=== PATIENT | female | born 1955 | race Caucasian/White ===

== ENCOUNTER → 2018-02-25 13:52 | Outpatient (CLI) | payer MEDICARE, OTHER, SELFPAY ==
[2018-02-25 15:33] LABS: BUN Creatinine Ratio 28.6 (6-22); Blood Urea Nitrogen 20 mg/dL (7-17); Calcium 9.8 mg/dL (8.4-10.2); Carbon Dioxide 28 mmol/L (22-32); Chloride 98 mmol/L (98-107); Estimated Glomerular Filt Rate > 60.0 mL/min (>60); Glucose 103 mg/dL (80-110); HEMOLYSIS < 15 (0-50); Potassium 4.8 mmol/L (3.4-5.1); Sodium 135 mmol/L (137-145)
== END ==
PROVIDERS: Visit Provider Internal Medicine Cardiovascular Disease
DX: E87.1 Hypo-osmolality and hyponatremia (principal)
CPT/HCPCS: 36415; 80048

== ENCOUNTER 2018-11-06 10:28 | Day surgery (SDC) | payer MEDICARE, OTHER, SELFPAY ==
--- NOTE | 2018-11-06 | PATH_ITS ---
[facility] Accession Number: [id number] . 01 Material submitted: . COLON POLYP AT 15CM . 02 Diagnosis: Biopsy, Colon Polyp at 15 cm: Hyperplastic polyop involving two biopsy fragments. [facility]/11/09/2018 . 02 Electronically signed: . Sohail Jean MD, Pathologist NPI- [id number] . 01 Gross description: . COLON POLYP AT 15CM: Received in formalin are 3 fragment(s) of marie, soft tissue measuring 0.1 x 0.1 x 0.1 cm to 0.3 x 0.2 x 0.2 cm which is entirely submitted and submitted entirely in 1 cassette(s) /DMC /DMC . 02 Pathologist provided ICD-10: K62.1 . 02 CPT . 822518 Performed at: 01 [facility] [address] [id number] MD Guanako Up MD Phone: [phone] Performed at: 02 [facility] [address] [place], [place] [id number] MD Maine Matamoros MD Phone: [phone]
[2018-11-06 10:52] VITALS: BP 144/65; PULSE 50; RESP 17; TEMP 36.3; O2SAT 95; BMI 25.1
[2018-11-06] MEDS: SODIUM CHLORIDE 0.9% 1,000 ML 200 ML IV (11:07)
--- NOTE | 2018-11-06 11:21 | PM.HP.1 ---
History of Present Illness Date Patient Seen: 11/06/18 Time Patient Seen: 11:21 Chief complaint: [id number] SCREENING COLONOSCOPY Narrative: Patient is woman here for screening colonoscopy. Last exam was 5 years ago. He she had polyps removed at that time. No family history colon cancer. Patient History Medical History Hx of ectopic (Resolved) Surgical History H/O exploratory laparotomy (Resolved) Social History household members: spouse Family & Social History Social History: household members spouse Meds Home Medications Medication Instructions Recorded Confirmed Type estradiol 0.5 mg QDAY #0 11/20/12 History [ACTIVE FOLATE] 200 mcg PO DAILY #0 12/14/12 11/06/18 History atenolol 100 mg PO DAILY 11/06/18 11/06/18 History levothyroxine [Synthroid] 150 mcg PO DAILY 11/06/18 11/06/18 History losartan 100 mg PO DAILY 11/06/18 11/06/18 History Allergies Allergy/AdvReac Type Severity Reaction Status Date / Time nadolol Allergy Severe Difficulty Verified 11/06/18 10:50 Breathing Review of Systems Review of Systems All systems reviewed & are unremarkable except as noted in HPI and below Exam Vital Signs (past 8 hours): - 11/06/18 10:52 Temperature 97.3 F L Pulse Rate 50 L Respiratory Rate 17 Blood Pressure 144/65 H Pulse Oximetry 95 Oxygen Delivery Method Room Air Narrative Exam Narrative: No apparent distress. Lungs are clear to auscultation. Heart regular rate and rhythm without murmur gallop. Abdomen is soft scaphoid nontender without mass. Alert oriented x3. Assessment & Plan Assessment & Plan narrative: Patient for screening colonoscopy due to history of polyps. I have discussed the procedure and the rationale with the patient including risks of bleeding, perforation which would necessitate a major operation, failure to find remove all lesions and the potential to tattoo. They appeared to understand and wished to proceed.
--- NOTE | 2018-11-06 11:24 | PM.PREOP ---
Pre-operative Note Interval Note History & Physical reviewed/Exam performed by Physician: Yes Changes to H&P: No ASA Class (for procedural sedation): II
[2018-11-06] MEDS: fentaNYL 250 MCG/5 ML INJ IV (11:56)
[2018-11-06] MEDS: MIDAZOLAM 5 MG/5 ML VIAL IV (11:57)
--- NOTE | 2018-11-06 12:24 | PM.OP.ENDO ---
Operative Date/Time/Diagnoses Date of procedure: 11/06/18 Time of procedure: 12:24 Post-op diagnosis: same (Small rectal lesions possibly polypoid) Procedure & Clinicians Study performed: Colonoscopy with cold biopsy Same procedure as scheduled: Yes Indications: Screening Surgeon: Kike Rosales Procedure Notes SCOAP/Timeout: Performed Procedure in detail: The patient was placed in the left lateral decubitus position and underwent IV sedation directed by the surgeon consisting of fentanyl and Versed. Digital exam was unremarkable. The scope was inserted and advanced through the rectum into the sigmoid, descending, transverse, and ascending colon. No lesions were seen. The cecum was reached identified by the ileocecal valve and the appendiceal opening. The scope was gradually brought out. No Polyps were found until I reached the rectum. At 15 cm there were 2 very tiny irregular lesions that may not be polyps at all but I removed them and submitted them. The scope ultimately was retroflexed in the rectum. The appearance was notable for some minor scarring on old hemorrhoidal disease. The scope was removed and the patient tolerated the procedure well Scope withdrawal time: 9.5 min Sedation minutes: 23 Findings: polyp (Possible rectal polyps) Specimen(s): other (Biopsies in the rectum) Complications: none Recommendations: Colonscopy in 5 years (Due to personal history of polyps) Follow up: as needed Disposition: PACU
[2018-11-06 12:26] VITALS: BP 103/56; PULSE 60; RESP 13; TEMP 36.4; O2SAT 97
[2018-11-06 12:31] VITALS: BP 104/51; PULSE 55; RESP 15; O2SAT 97
--- NOTE | 2018-11-06 12:34 | SUR.PHASEI ---
HOB elevated, awake, asking appropriate questions, Tolerated juice well
[2018-11-06 12:36] VITALS: BP 101/45; PULSE 50; RESP 14; O2SAT 98
--- NOTE | 2018-11-06 12:40 | SUR.PHASEI ---
states that her heart rate normally runs in the 50's, is taking a beta moy - took this am.
[2018-11-06 13:00] VITALS: BP 94/50; PULSE 48; RESP 16; TEMP 36.7; O2SAT 99
== END 2018-11-06 13:06 | disposition home or self-care (01) ==
PROVIDERS: Visit Provider Specialist
PROC: 0DJD8ZZ Inspection of Lower Intestinal Tract, Via Natural or Artificial Opening Endoscopic (ICD-10-PCS; CPT 45378; principal; 2018-11-06 11:45)
DX: Z86.010 Personal history of colon polyps (principal); K62.1 Rectal polyp
CPT/HCPCS: 45380; 88305; 99152; 99153; J2250; J3010

== ENCOUNTER → 2018-11-21 10:20 | Outpatient (CLI) | payer MEDICARE, OTHER, SELFPAY ==
--- NOTE | 2018-11-21 | DI.MRI.S_ITS ---
PROCEDURE: MR CERVICAL SPINE WO CON INDICATIONS: neck pain, right hand numbness TECHNIQUE: Noncontrast sagittal T1 spin echo and T2 fast spin echo, sagittal STIR, foraminal oblique sagittal T2 fast spin echo, and axial gradient echo or T2 fast spin echo through the cervical spine. COMPARISON: None. FINDINGS: Image quality: Excellent. Alignment and Curvature: There is straightening of normal cervical curvature with trace retrolisthesis of C5 on C6. Bone Marrow: Marrow demonstrates normal overall signal. Spinal Cord: Visualized spinal cord has normal size and signal. No cerebellar tonsillar herniation. Paraspinous Soft Tissues: No paravertebral masses. Prevertebral soft tissues are normal in thickness. C2-C3: Minimal disc bulge without spinal stenosis or foraminal narrowing. C3-C4: Mild disc bulge without spinal stenosis or frontal narrowing. Minimal focal vertebral hypertrophy. C4-C5: Mild disc bulge without spinal stenosis. Mild right foraminal narrowing with uncovertebral hypertrophy. C5-C6: Mild disc bulge with minimal canal narrowing. Minimal to mild right foraminal narrowing with uncovertebral hypertrophy. C6-C7: Mild disc bulge without spinal stenosis. Minimal to mild right and minimal left foraminal narrowing with uncovertebral hypertrophy. C7-T1: No disc bulge, spinal stenosis or foraminal narrowing. IMPRESSION: 1. Mild cervical straightening. 2. Minimal to mild foraminal narrowing predominantly right-sided from C4-5 through C6-7. Dictated by: Jannie Alcantar M.D. on 11/23/2018 at 9:48 Approved by: Jannie Alcantar M.D. on 11/23/2018 at 9:57
--- NOTE | 2018-11-21 | DI.MG.S_ITS ---
BILATERAL DIGITAL SCREENING MAMMOGRAM 3D/2D WITH CAD: 11/21/2018 CLINICAL: Routine screening. Family history of breast cancer. Comparison is made to exams dated: 12/11/2016 mammogram, 11/22/2015 mammogram, and 11/14/2014 mammogram - [facility]. There are scattered fibroglandular elements in both breasts. Current study was also evaluated with a Computer Aided Detection (CAD) system. There are a grouped heterogeneous calcifications in the right breast at 11 o'clock middle depth. There is a possible associated developing aysmmetry best seen on the mediolateral oblique view. No other significant masses, calcifications, or other findings are seen in either breast. IMPRESSION: INCOMPLETE: NEEDS ADDITIONAL IMAGING EVALUATION The grouped heterogeneous calcifications with possible associated developing asymmetry in the right breast are indeterminate. Mediolateral, spot magnification, and spot compression views as well as a possible ultrasound are recommended. This exam was interpreted at Station ID: [id number]. NOTE: For mammograms, a report in lay terms will be sent to the patient. Approximately 15% of breast malignancies will not be visualized mammographically. In the management of a palpable breast mass, a negative mammogram must not discourage biopsy of a clinically suspicious lesion. Electronically Signed By: Brett Salmeron M.D. aty/:11/23/2018 08:07:59 letter sent: Additional Imaging Needed ACR BI-RADS Category 0: Incomplete [id number]
== END ==
PROVIDERS: Family Provider Physical Medicine & Rehabilitation Pain Medicine
DX: M54.2 Cervicalgia (principal); M48.02 Spinal stenosis, cervical region; R20.0 Anesthesia of skin; Z12.31 Encounter for screening mammogram for malignant neoplasm of breast; Z80.3 Family history of malignant neoplasm of breast
CPT/HCPCS: 72141; 77063; 77067

== ENCOUNTER → 2018-12-09 14:06 | Outpatient (CLI) | payer MEDICARE, OTHER, SELFPAY ==
--- NOTE | 2018-12-09 | DI.MG.S_ITS ---
UNILATERAL RIGHT DIGITAL DIAGNOSTIC MAMMOGRAM 3D/2D WITH ADDITIONAL VIEWS: 12/09/2018 CLINICAL: Additional evaluation requested from prior study. Comparison is made to exams dated: 11/21/2018 mammogram - [facility], 12/11/2016 mammogram, and 11/22/2015 mammogram - [facility]. There are scattered fibroglandular elements in right breast. The grouped punctate calcifications in the right breast at 11 o'clock middle depth persist on additional views. The possible asymmetry in the right breast middle depth superior region seen on the mediolateral oblique view only is not seen in additional views. No other significant masses or calcifications are seen in the breast. IMPRESSION: PROBABLY BENIGN The grouped punctate calcifications in the right breast at 11 o'clock middle depth are probably benign. A follow-up right mammogram in 6 months is recommended to demonstrate stability. This exam was interpreted at Station ID: [id number]. NOTE: For mammograms, a report in lay terms will be sent to the patient. Approximately 15% of breast malignancies will not be visualized mammographically. In the management of a palpable breast mass, a negative mammogram must not discourage biopsy of a clinically suspicious lesion. Electronically Signed By: Tiarra kc/:12/09/2018 15:00:16 letter sent: Followup Recommended ACR BI-RADS Category 3: Probably benign [id number]
== END ==
PROVIDERS: Family Provider Physical Medicine & Rehabilitation Pain Medicine
DX: R92.1 Mammographic calcification found on diagnostic imaging of breast (principal)
CPT/HCPCS: 77065; G0279

== ENCOUNTER 2019-03-09 13:19 | Observation (INO) | payer MEDICARE, OTHER, SELFPAY ==
[2019-03-09] VITALS (15 sets, daily range): BP systolic 112–225; BP diastolic 65–98; PULSE 53–80; RESP 13–19; TEMP 36.2–37; O2SAT 93–100; BMI 25.4
--- NOTE | 2019-03-09 | DI.ECHO.S_ITS ---
[facility] +---------+ : : [address] : : [place], [place] : : : : [id number] : : : : Phone: [phone]+ Echocardiogram Report + + :Name: DMITRIKURTHugo Arias Study Date: 03/10/2019 Height: 64 in : :[facility] Exam Location: [place] Weight: 148 lb : : Gender: Female BSA: 1.7 m2 : :: 1955 Age: 64 yrs BP: 163/73 mmHg: :Reason For Study: TIA/ Hypertensive emergency : :Ordering Physician: Howard : :Hospitalist Performed By: Jessika Page : :Referring: BRITNI GAMINO : + + Interpretation Summary 1) Normal left ventricular thickness, size, wall motion, and systolic function (EF 60-65%). 2) Normal right ventricular size and function. 3) Both atria are moderately dilated. 4) No significant valvular abnormalities. 5) Injection of contrast documented no interatrial shunt. 6) Hypertension present during the study (BP 163/73mmHg). 7) No prior Echo available for comparison. Procedure: A two-dimensional transthoracic echocardiogram with color flow and Doppler was performed. The study quality was technically adequate. There is no prior echocardiogram noted for this patient. A saline contrast injection was performed to assess for cardiac shunting. The patient was in sinus bradycardia with heart rates between 48-51 bpm during the exam. Left Ventricle: The left ventricle is normal in size, wall thickness, and systolic function without any focal wall motion abnormalities. The ejection fraction is estimated to be 60-65%. Right Ventricle: The right ventricle is normal in size and function. Atria: Both atria are moderately dilated. There is no Doppler evidence for an interatrial shunt. Injection of contrast documented no interatrial shunt. Mitral Valve: The mitral valve is normal in structure and function. There is trace mitral regurgitation. Aortic Valve: The aortic valve is grossly normal. The aortic valve opens well. There is no aortic valve stenosis. No aortic regurgitation is present. Tricuspid Valve: The tricuspid valve is normal in structure and function. There is trace tricuspid regurgitation. The right ventricular systolic pressure is estimated to be at least 23 mmHg based on an estimated right atrial pressure of 3 mm Hg. Pulmonic Valve: The pulmonic valve is not well visualized. Great Vessels: The aortic root is normal size. The ascending aorta is at the upper limits of normal in size. The pulmonary is not well visualized. The IVC is dilated (diameter is greater than 2.1 cm) yet it collapses greater than 50% with a sniff. This suggests a right atrial pressure of 8 mm Hg. Pericardium/ Pleura There is no pericardial effusion. There is no pleural effusion. MMode/2D Measurements & Calculations LVIDd: 5.1 cm Ao root diam: 2.6 cm LVIDs: 3.1 cm asc Aorta Diam: 3.4 cm FS: 40.1 % EPSS: 0.45 cm IVSd: 0.48 cm LVPWd: 0.94 cm LV willard. diameter/BSA (cm/m^2): 3.0 LV sys. diameter/BSA (cm/m^2): 1.8 LA A2 area: 30.4 cm2 RA long axis: 5.8 cm LA A4 area: 25.7 cm2 RA area: 24.9 cm2 LA length (vol): 6.5 cm RA vol: 90.7 ml LA vol: 102.0 ml RA : 52.7 ml/m2 LA vol index: 59.3 ml/m2 IVC diam: 2.2 cm RVD1 (basal): 4.0 cm RVD2 (mid): 3.7 cm TAPSE: 2.7 cm Doppler Measurements & Calculations Ao V2 max: 172.0 cm/sec LVOT Max Hakan: 84.7 cm/sec Ao V2 mean: 124.3 cm/sec LV V1 max P.9 mmHg Ao max P.8 mmHg LV V1 VTI: 24.2 cm Ao mean P.7 mmHg sev ratio: 0.53 Ao V2 VTI: 46.0 cm MV E max hakan: 97.8 cm/sec TR max hakan: 224.8 cm/sec MV A max hakan: 74.0 cm/sec TR max P.3 mmHg MV E/A: 1.3 PA V2 max: 74.0 cm/sec Med Peak E' Hakan: 6.9 cm/sec PA V2 mean: 57.0 cm/sec E/E' med: 14.1 PA mean P.4 mmHg Lat Peak E' Hakan: 11.2 cm/sec PA Accel Time: 0.18 sec E/E' lat: 8.7 E/e' average: 11.4 MV dec time: 0.22 sec MV P1/2t: 65.7 msec MV P1/2t max hakan: 98.4 cm/sec MVA(P1/2t): 3.3 cm2 Reading Physician:01:29 PM
--- NOTE | 2019-03-09 13:38 | PC.NURSE ---
code stroke called on admit pt to ed/ 133
--- NOTE | 2019-03-09 13:38 | ED.NEUROSD ---
HPI - Neuro Symptoms/Deficit General Chief Complaint: Neuro Symptoms/Deficit Stated Complaint: possible stroke Time Seen by Provider: 03/09/19 13:37 Source: patient and family () Limitations: no limitations History of Present Illness HPI Narrative: 64-year-old female comes to the emergency department with complaint of possible stroke. Patient symptoms started sometime between noon and now. She states they do seem like they have been improving she had sort of a zigzag vision change of her eye. It was and then resolved and then returned again. Patient states she also could really find her words and she was unable to talk. She states she knew what she wanted to say but the words just were not coming out. She also felt like her left side was a little bit weak. Although she was able to move it she had a little bit of difficulty. She normally has some difficulty with her right shoulder she has had chronic shoulder issues and some intervention. Patient does have a history of hypertension she states she took her atenolol today. She did take 81 mg of aspirin this morning when she was having episode. Patient saw her last at noon and states she was normal at that time. He left the house to go to lunch and then returned and she was describing her symptoms. Denies any current headache, no current vision changes at this moment. No chest pain or pressure, no shortness of breath. No nausea, no vomiting no other GI or urinary symptoms. She takes medication for blood pressure as well as thyroid. She states she takes losartan. She denies any allergies other than nadolol. She does not have a primary care she sees in [facility] but states she did have her cholesterol checked recently and it was elevated. On Anticoagulants: No Related Data Home Medications Medication Instructions Recorded Confirmed [ACTIVE FOLATE] 200 mcg PO DAILY #0 12/14/12 03/09/19 atenolol 100 mg PO DAILY 11/06/18 03/09/19 levothyroxine [Synthroid] 150 mcg PO DAILY 11/06/18 03/09/19 losartan 100 mg PO DAILY 11/06/18 03/09/19 Allergies Allergy/AdvReac Type Severity Reaction Status Date / Time nadolol Allergy Severe Difficulty Verified 11/06/18 10:50 Breathing Review of Systems Review of Systems ROS Unobtainable: All systems reviewed & are unremarkable except as noted in HPI and below Constitutional Denies chills, Denies fever(s), Denies lethargy and Denies weakness Eyes Reports change in vision ENT Ears, Nose, Mouth, and Throat: Denies disequilibrium and Denies other (Facial droop) Cardiovascular Denies chest pain, Denies edema, Denies irregular heart rhythm, Denies lightheadedness, Denies palpitations, Denies dyspnea, Denies dyspnea on exertion and Denies orthopnea Respiratory Denies change in phlegm color, Denies chest congestion, Denies cough, Denies dyspnea, Denies dyspnea on exertion and Denies wheezing Gastrointestinal Gastrointestinal: Denies abdominal pain, Denies change in bowel habits, Denies diarrhea, Denies nausea and Denies vomiting Genitourinary Denies hematuria, Denies dysuria, Denies flank pain, Denies urinary incontinence and Denies urinary urgency Musculoskeletal Reports muscle weakness (Left-sided), Denies numbness and Denies tingling Neurologic Reports abnormal speech, Denies confusion, Reports focal weakness (resolved), Denies numbness, Denies tingling, Denies disequilibrium and Denies weakness Psychiatric Denies confusion Endocrine Denies palpitations Allergic/Immunologic Denies wheezing [facility] Medical History (Updated 03/09/19 @ 16:04 by Eneida Paige DO) Hypertension (Chronic) Hypothyroid (Chronic) Hx of ectopic (Resolved) Surgical History H/O exploratory laparotomy (Resolved) Social History household members: spouse Smoking Status: Former smoker alcohol intake: current Social History household members: spouse Smoking Status: Former smoker alcohol intake: current Exam Narrative Exam Narrative: GEN: well nourished, well appearing female, alert and oriented x 3, patient appears to be in mild distress. Patient appears anxious. HEENT: Atraumatic, pupils are equal round reactive to light, no visual field deficits noted. Extraocular movements are intact, nares are clear, TMs are clear with no fluid, there is no conjunctival pallor. Throat is clear without any exudates, erythema, tonsillar enlargement or uvular deviation, no facial droop. HEART: Regular rate and rhythm without murmur, clicks, rubs. Pulses are equal in upper and lower extremities LUNGS:Lungs clear to auscultation, no wheezes, rales, crackles, chest moves symmetrically ABD:bowel sounds normal, soft, non-tender, no guarding, rebound, rigidity, no masses noted, no hepatosplenomegaly :No CVA tenderness MSCL: Non-tender, no muscle atrophy, muscles strength 5/5 upper and lower extremities, full range of motion except for right arm, patient states she has pain and it is difficult for her to lift her right arm, normal gait NEURO:CN 2-12 intact, sensation normal, reflexes 2/4 upper and lower extremities. finger nose finger test normal, heel nick test normal. Initial Vital Signs Initial Vital Signs: Vital Signs Temperature 97.2 F L 03/09/19 13:30 Pulse Rate 80 03/09/19 13:30 Respiratory Rate 13 03/09/19 13:30 Blood Pressure 225/77 H 03/09/19 13:30 Pulse Oximetry 100 03/09/19 13:30 Scores NIH Stroke Scale Level of Conciousness: Alert, keenly responsive Ask month/age: Answers both questions correctly. Open/close eyes, close hand: Performs both tasks correctly Best gaze horizontal: Normal Visual zimmerman: No visual loss Facial palsy: Normal symetrical movement Left arm drift: No drift for full 10 sec Right arm drift: No drift for full 10 sec Left leg drift: No drift for full 10 sec Right leg drift: No drift for full 10 sec Limb ataxia: Absent Sensory on face/arms/legs: Normal, no sensory loss Best language: No aphasia, normal Dysarthria: Normal Extinction or inattention: No abnormality Total NIH Stroke scale score: 0 Course Orders Ordered: ED Orders 03/09/19 13:30 EKG-12 Lead Stat 03/09/19 13:37 XR chest 1V Stat 03/09/19 13:45 Basic Metabolic Panel Stat Complete Blood Count AUTO DIFF Stat Partial Thromboplastin Time Stat Prothrombin Time INR Stat Troponin I Stat 03/09/19 14:09 CT angio head and neck Stat 03/09/19 14:10 CT head/brain wo con Stat 03/09/19 14:57 Urine Drug Screen, Rapid Stat Sodium Chloride (Normal Saline 0.9%) 1,000 mls @ 150 mls/hr IV CONT PAT Last Admin: 03/09/19 14:40 Dose: 150 mls/hr Discontinued Medications Aspirin (Aspirin Chew) 243 mg PO NOW ONE Stop: 03/09/19 14:16 Last Admin: 03/09/19 14:34 Dose: 243 mg Hydralazine HCl (Apresoline) 10 mg PO NOW ONE Stop: 03/09/19 15:37 Last Admin: 03/09/19 16:29 Dose: 10 mg Vital Signs - 8 hr 03/09/19 13:30 03/09/19 14:15 03/09/19 15:15 Temperature 97.2 F L Pulse Rate 80 57 L 59 L Respiratory Rate 13 18 15 Blood Pressure 225/77 H Blood Pressure [Left Arm] 192/67 H 112/98 H Pulse Oximetry 100 98 03/09/19 16:00 03/09/19 16:29 03/09/19 16:40 Temperature Pulse Rate 55 L 56 L 60 Respiratory Rate 16 19 Blood Pressure 190/75 H 179/65 H Blood Pressure [Left Arm] 163/72 H Pulse Oximetry 100 03/09/19 16:55 03/09/19 17:35 03/09/19 17:40 Temperature 98.6 F Pulse Rate 61 59 L 59 L Respiratory Rate 16 Blood Pressure 163/73 H 175/75 H 163/73 H Blood Pressure [Left Arm] Pulse Oximetry 97 MDM - Neuro Symptoms/Deficit Lab Data Attestation: I reviewed the patient's lab results. Result diagrams: 03/09/19 13:45 03/09/19 13:45 Lab Results 03/09/19 03/09/19 03/09/19 Range/Units 13:45 13:45 13:45 WBC 5.7 (4.5-11.0) X10^3/uL RBC 4.08 (4.0-5.2) X10^6/uL Hgb 13.5 (12.0-16.0) g/dL Hct 39.5 (36-46) % MCV 96.8 (80-100) fL MCH 33.2 (26-34) PG MCHC 34.3 (30-36) % RDW 12.9 (11.6-14.8) % Plt Count 250 (150-400) X10^3/uL Neut % (Auto) 50.5 (50-75) % Lymph % (Auto) 35.6 (25-40) % [place] % (Auto) 13.0 (3-14) % Eos % (Auto) 0.3 L (2-4) % Baso % (Auto) 0.6 (0-2) % Neut # (Auto) 2900 (1664-3924) /uL Lymph # (Auto) 2000 (4072-6736) /uL [place] # (Auto) 700 (0-900) /uL Eos # (Auto) 0 (0-450) /uL Baso # (Auto) 0 (0-100) /uL PT 10.4 (10.1-12.7) SECONDS INR 0.9 (0.9-1.3) APTT 33 (26.4-36.2) SECONDS Sodium 132 L (137-145) mmol/L Potassium 4.7 (3.4-5.1) mmol/L Chloride 95 L (98-107) mmol/L Carbon Dioxide 27 (22-32) mmol/L BUN 19 H (7-17) mg/dL Creatinine 0.70 (0.52-1.04) mg/dL Estimated GFR > 60.0 (>60) mL/min BUN/Creatinine Ratio 27.1 H (6-22) Glucose 110 (80-110) mg/dL Calcium 9.8 (8.4-10.2) mg/dL Troponin I < 0.012 (0.01-0.034) ng/mL Urine Opiates Screen (Negative) Ur Oxycodone Screen (Negative) Urine Methadone Screen (Negative) Ur Barbiturates Screen (Negative) U Tricyclic Antidepress (Negative) Ur Phencyclidine Scrn (Negative) Ur Amphetamines Screen (Negative) U Methamphetamines Scrn (Negative) Ur MDMA Scrn (Ecstasy) (Negative) U Benzodiazepines Scrn (Negative) Urine Cocaine Screen (Negative) U Marijuana (THC) Screen (Negative) 03/09/19 Range/Units 14:57 WBC (4.5-11.0) X10^3/uL RBC (4.0-5.2) X10^6/uL Hgb (12.0-16.0) g/dL Hct (36-46) % MCV (80-100) fL MCH (26-34) PG MCHC (30-36) % RDW (11.6-14.8) % Plt Count (150-400) X10^3/uL Neut % (Auto) (50-75) % Lymph % (Auto) (25-40) % [place] % (Auto) (3-14) % Eos % (Auto) (2-4) % Baso % (Auto) (0-2) % Neut # (Auto) (4505-5499) /uL Lymph # (Auto) (8448-6327) /uL [place] # (Auto) (0-900) /uL Eos # (Auto) (0-450) /uL Baso # (Auto) (0-100) /uL PT (10.1-12.7) SECONDS INR (0.9-1.3) APTT (26.4-36.2) SECONDS Sodium (137-145) mmol/L Potassium (3.4-5.1) mmol/L Chloride (98-107) mmol/L Carbon Dioxide (22-32) mmol/L BUN (7-17) mg/dL Creatinine (0.52-1.04) mg/dL Estimated GFR (>60) mL/min BUN/Creatinine Ratio (6-22) Glucose (80-110) mg/dL Calcium (8.4-10.2) mg/dL Troponin I (0.01-0.034) ng/mL Urine Opiates Screen Negative (Negative) Ur Oxycodone Screen Negative (Negative) Urine Methadone Screen Negative (Negative) Ur Barbiturates Screen Negative (Negative) U Tricyclic Antidepress Negative (Negative) Ur Phencyclidine Scrn Negative (Negative) Ur Amphetamines Screen Negative (Negative) U Methamphetamines Scrn Negative (Negative) Ur MDMA Scrn (Ecstasy) Negative (Negative) U Benzodiazepines Scrn Negative (Negative) Urine Cocaine Screen Negative (Negative) U Marijuana (THC) Screen Negative (Negative) Point of Care Testing Glucose POC 104 Urine Dip Bedside Urine Glucose Negative Bedside Urine Bilirubin - Negative Bedside Urine Ketone - Negative Urine Specific [place] 1.010 Bedside Urine Occult Blood +/- Bedside Urine pH 7.5 Bedside Urine Protein - Negative Bedside Urine Urobilinogen - Negative Bedside Urine Nitrite - Negative Bedside Urine Leukocytes - Negative Esterase Imaging Data CT scan - head: Radiologist's impression: Prelim results called to vt was negative for acute intracranial change. CTA head and neck: Radiologist's impression: [facility] DATE TYPE STATUS AUTHOR Hx 03/09/19 14:10 03/09/19 14:09 Tanner Ford 03/09/19 13:37 Lino Alegre 12/09/18 00:00 Tiarra Rosario 11/21/18 00:00 Jannie Alcantar 11/21/18 00:00 Brett Salmeron 11/06/18 10:28 Gabby Garcia 64, F0 1955 REG ER, ED.LOC - Main ED: R02 67.132kg Neuro Symptoms/Deficit Search Chart No Data to Display NF - Not included in interaction checking Difficulty Breathing No Data to Display Today 14:15 Gabby Garcia 64 F 1955 [place] [address] CT Scan Report Signed Patient: Gabby Garcia [facility]#: [id number] : 1955cct:[id number] Age/Sex: 64 / FDate of Service: 03/09/19 Loc: ED Accession Number: [id number] Procedure: CT angio head and neck Ordering Provider: Eneida Paige D.O. PROCEDURE: CT ANGIO HEAD AND NECK INDICATIONS: vision change, weakness left side, speech problems TECHNIQUE: Pre-contrast 4.5 mm thick sections acquired from the foramen magnum to the vertex. After the administration of intravenous contrast, 1 mm thick sections acquired from the aortic arch through the [place]. Post-contrast 4.5 mm thick sections then re-acquired from the foramen magnum to the vertex. 3-dimensional yvweufz-vlofgaesy-oabkkdysof (MIP) and/or volume rendering reformats were acquired of the central intracranial vasculature and neck separately. COMPARISON: [facility], CT, CT HEAD/BRAIN WO CON, 03/09/2019, 13:36. FINDINGS: Image quality: Diagnostic BRAIN: CSF spaces: Ventricles are normal in size and shape. Basal cisterns are patent. No extra-axial fluid collections. Brain: No midline shift. No intracranial bleeds or masses. Camacho-white matter interface appears intact. Skull and face: Calvarium and facial bones appear intact, without suspicious lesions. Orbits appear normal. Sinuses: Sinuses and mastoids are clear. HEAD CT ANGIOGRAPHY: Anterior circulation: Intracranial internal carotid arteries are normal in size and flow. The flow within the paired anterior cerebral arteries is normal and symmetric. The flow within the middle cerebral arteries is normal and symmetric. The anterior communicating artery is seen. No aneurysms are seen. Posterior circulation: The right vertebral artery terminates as the posterior-inferior cerebellar artery. The left vertebral artery forms the basilar artery. No high-grade narrowing of these vessels is evident. Flow within the posterior cerebral arteries is normal and symmetric. Persistent origin of the right posterior cerebral artery is noted. No aneurysms are seen. NECK CT ANGIOGRAPHY: Carotid system: The great vessels demonstrate a conventional anatomy as they arise from the aortic arch. The origins of the common carotid arteries appear patent. The common carotid arteries demonstrate normal caliber and courses. There is approximately 50% narrowing identified involving the proximal right internal carotid artery at the level of the carotid bulb. Approximately 30% narrowing of the lumen of the left internal carotid artery origin is present. Mild atherosclerosis involving the bilateral intracranial internal carotid arteries is also incidentally noted. Posterior circulation: The origins of the vertebral arteries both appear widely patent. The more superior extracranial portions of both vertebral arteries also demonstrate normal courses and calibers. They join to form a normal appearing basilar artery. Soft tissues: Visualized neck soft tissues demonstrate no suspicious abnormalities. Bones: No suspicious bony lesions. Visualized cervical spine appears normally aligned. IMPRESSION: 1. No abnormal intracranial enhancement. 2. No occlusions or high-grade narrowing of the arteries of the neck or brain. No aneurysms, evidence of dissection, or vascular malformations are evident. 3. Mild to moderate atherosclerotic narrowing involving the bilateral proximal internal carotid arteries (right greater than left). Any quantitative measurements of stenosis were performed using NASCET criteria. Dictated by: Tanner Ford M.D. on 03/09/2019 at 13:16 Approved by: Tanner Ford M.D. on 03/09/2019 at 13:22 Chest x-ray: Radiologist's impression: [address] [address] XRay Report Signed Patient: Gabby Garcia [facility]#: [id number] : 3Acct:[id number] Age/Sex: 64 / FDate of Service: 03/09/19 Loc: ED Accession Number: [id number] Procedure: XR chest 1V Ordering Provider: Eneida Paige D.O. PROCEDURE: XR CHEST 1V INDICATIONS: cva TECHNIQUE: One view of the chest was acquired. COMPARISON: [facility], RG, XR CXR 2 VIEW, 09/25/2005, 14:25. [facility], CR, CHEST 1 VIEW, 01/21/2010, 12:27. FINDINGS: Surgical changes and devices: None. Lungs and pleura: Lungs are clear. No pleural effusions or pneumothorax. Mediastinum: Mediastinal contours appear normal. Heart size is normal. Bones and chest wall: No suspicious bony lesions. Overlying soft tissues appear unremarkable. Calcification over the right humeral head suggests calcific tendinitis. IMPRESSION: No acute cardiopulmonary disease. Dictated by: Cristy Alegre M.D. on 03/09/2019 at 14:29 Approved by: Cristy Alegre M.D. on 03/09/2019 at 14:34 MDM Narrative Medical decision making narrative: Patient took her 81 mg aspirin this morning. Given 3 additional aspirin for 243 for a total of 324 mg. Patient's symptoms resolved completely so she is not a tPA candidate. CTA does not show any severe narrowing, she has some mild to moderate atherosclerotic narrowing of the bilateral proximal internal carotids right greater than left. But no occlusions or high-grade narrowing. Patient's lab work does not show any acute changes. Discussed with patient I recommend observation. 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 Patient continues to have elevated blood here sure here in department at times it is got low as 160 but has been fairly consistently elevated 190 systolic. Patient states she did take her blood pressure medication today. Was given additional dose of hydralazine as beta-blockers or calcium channel blockers would likely affect her heart rate which is in the 60s to 50s range. Spoke with Dr. Fowler regarding observation for TIA, she accepts. Discharge Plan Departure Patient Disposition: Admitted as Observation Clinical Impression: TIA (transient ischemic attack), Hypertension Discharge Date/Time: 03/09/19 16:43 Interventions: ED Discharge Assessment Last Done: 03/09/19 16:40 Admit Date/Time: 03/09/19 16:37 Admit Provider: Rosa Fowler
[2019-03-09 13:51] LABS: Add Manual Diff / Slide Review NO; Basophils Absolute Auto 0 /uL (0-100); Basophils Percent Auto 0.6 % (0-2); Eosinophils Absolute Auto 0 /uL (0-450); Eosinophils Percent Auto 0.3 % (2-4); Hematocrit 39.5 % (36-46); Hemoglobin 13.5 g/dL (12.0-16.0); Lymphocytes Absolute Auto 2000 /uL (1100-4500); Lymphocytes Percent Auto 35.6 % (25-40); Mean Corpuscular HGB Conc 34.3 % (30-36); Mean Corpuscular Hemoglobin 33.2 PG (26-34); Mean Corpuscular Volume 96.8 fL (80-100); Monocytes Absolute Auto 700 /uL (0-900); Neutrophils Absolute Auto 2900 /uL (1500-7000); Neutrophils Percent Auto 50.5 % (50-75); Platelet Count 250 X10^3/uL (150-400); Red Blood Cell Count 4.08 X10^6/uL (4.0-5.2); Red Cell Distribution Width 12.9 % (11.6-14.8); White Blood Cell Count 5.7 X10^3/uL (4.5-11.0)
[2019-03-09 13:58] LABS: INR 0.9 (0.9-1.3); Prothrombin Time 10.4 SECONDS (10.1-12.7)
[2019-03-09 14:01] LABS: PTT Partial Thromboplastin Tim 33 SECONDS (26.4-36.2)
[2019-03-09 14:03] LABS: BUN Creatinine Ratio 27.1 (6-22); Blood Urea Nitrogen 19 mg/dL (7-17); Calcium 9.8 mg/dL (8.4-10.2); Carbon Dioxide 27 mmol/L (22-32); Chloride 95 mmol/L (98-107); Estimated Glomerular Filt Rate > 60.0 mL/min (>60); Glucose 110 mg/dL (80-110); HEMOLYSIS < 15 (0-50); Potassium 4.7 mmol/L (3.4-5.1); Sodium 132 mmol/L (137-145)
--- NOTE | 2019-03-09 14:09 | DI.CT.S_ITS ---
PROCEDURE: CT ANGIO HEAD AND NECK INDICATIONS: vision change, weakness left side, speech problems TECHNIQUE: Pre-contrast 4.5 mm thick sections acquired from the foramen magnum to the vertex. After the administration of intravenous contrast, 1 mm thick sections acquired from the aortic arch through the [place] of [place]. Post-contrast 4.5 mm thick sections then re-acquired from the foramen magnum to the vertex. 3-dimensional hckatql-iinvokokn-nhxvvgfunl (MIP) and/or volume rendering reformats were acquired of the central intracranial vasculature and neck separately. COMPARISON: [facility], CT, CT HEAD/BRAIN WO CON, 03/09/2019, 13:36. FINDINGS: Image quality: Diagnostic BRAIN: CSF spaces: Ventricles are normal in size and shape. Basal cisterns are patent. No extra-axial fluid collections. Brain: No midline shift. No intracranial bleeds or masses. Camacho-white matter interface appears intact. Skull and face: Calvarium and facial bones appear intact, without suspicious lesions. Orbits appear normal. Sinuses: Sinuses and mastoids are clear. HEAD CT ANGIOGRAPHY: Anterior circulation: Intracranial internal carotid arteries are normal in size and flow. The flow within the paired anterior cerebral arteries is normal and symmetric. The flow within the middle cerebral arteries is normal and symmetric. The anterior communicating artery is seen. No aneurysms are seen. Posterior circulation: The right vertebral artery terminates as the posterior-inferior cerebellar artery. The left vertebral artery forms the basilar artery. No high-grade narrowing of these vessels is evident. Flow within the posterior cerebral arteries is normal and symmetric. Persistent origin of the right posterior cerebral artery is noted. No aneurysms are seen. NECK CT ANGIOGRAPHY: Carotid system: The great vessels demonstrate a conventional anatomy as they arise from the aortic arch. The origins of the common carotid arteries appear patent. The common carotid arteries demonstrate normal caliber and courses. There is approximately 50% narrowing identified involving the proximal right internal carotid artery at the level of the carotid bulb. Approximately 30% narrowing of the lumen of the left internal carotid artery origin is present. Mild atherosclerosis involving the bilateral intracranial internal carotid arteries is also incidentally noted. Posterior circulation: The origins of the vertebral arteries both appear widely patent. The more superior extracranial portions of both vertebral arteries also demonstrate normal courses and calibers. They join to form a normal appearing basilar artery. Soft tissues: Visualized neck soft tissues demonstrate no suspicious abnormalities. Bones: No suspicious bony lesions. Visualized cervical spine appears normally aligned. IMPRESSION: 1. No abnormal intracranial enhancement. 2. No occlusions or high-grade narrowing of the arteries of the neck or brain. No aneurysms, evidence of dissection, or vascular malformations are evident. 3. Mild to moderate atherosclerotic narrowing involving the bilateral proximal internal carotid arteries (right greater than left). Any quantitative measurements of stenosis were performed using NASCET criteria. Dictated by: Tanner Ford M.D. on 03/09/2019 at 13:16 Approved by: Tanner Ford M.D. on 03/09/2019 at 13:22
--- NOTE | 2019-03-09 14:10 | DI.CT.S_ITS ---
PROCEDURE: CT HEAD/BRAIN WO CON INDICATIONS: vision change, left sided weakness, difficult speech TECHNIQUE: Noncontrast 4.5 mm thick angled axial sections acquired from the foramen magnum to the vertex, with coronal and sagittal reformats. For radiation dose reduction, the following was used: automated exposure control, adjustment of mA and/or kV according to patient size. COMPARISON: None. FINDINGS: Image quality: Excellent. CSF spaces: Basal cisterns are patent. No extra-axial fluid collections. The ventricles are symmetric in size and shape. Brain: No intracranial bleeds or masses. There is cerebral volume loss for age, with resultant ventricular and sulcal prominence. There are periventricular and deep white matter chronic small vessel ischemic changes. There is intracranial internal carotid artery atherosclerosis. Skull and face: Calvarium and visualized facial bones appear intact, without suspicious lesions. Sinuses: Visualized sinuses and mastoids are clear. IMPRESSION: 1. No acute intracranial abnormalities. 2. Cerebral volume loss and chronic microvascular ischemic changes. The result was discussed with Dr. Grecia Saenz at 1404 hrs. Dictated by: Cristy Alegre M.D. on 03/09/2019 at 14:02 Approved by: Cristy Alegre M.D. on 03/09/2019 at 17:12
[2019-03-09 14:14] LABS: Troponin I < 0.012 ng/mL (0.01-0.034)
[2019-03-09] MEDS: ASPIRIN 81 MG TAB 243 MG PO (14:34)
[2019-03-09] MEDS: SODIUM CHLORIDE 0.9% 1,000 ML 150 ML IV (14:40)
[2019-03-09 15:10] LABS: Urine Amphetamines Negative (Negative); Urine Barbiturates Negative (Negative); Urine Benzodiazepines Negative (Negative); Urine Cocaine Negative (Negative); Urine MDMA Negative (Negative); Urine Methadone Negative (Negative); Urine Methamphetamines Negative (Negative); Urine Morphine/Opi cutoff 2000 Negative (Negative); Urine Oxycodone Negative (Negative); Urine Phencyclidine Negative (Negative); Urine Tetrahydrocannabinol Negative (Negative); Urine Tricyclic Antidepressant Negative (Negative)
[2019-03-09] MEDS: HYDRALAZINE 10 MG TABLET PO (16:29)
--- NOTE | 2019-03-09 17:32 | PC.ADMIT ---
[id number] [facility] Admission Note: The patient,Gabby Garcia,64 y/o, was given written information regarding hospital policies, unit procedures and contact persons. Patient's smoking status: Former smoker. Vital Signs - 8 hr 03/09/19 13:30 03/09/19 14:15 03/09/19 15:15 Temperature 97.2 F L Pulse Rate 80 57 L 59 L Respiratory Rate 13 18 15 Blood Pressure 225/77 H Blood Pressure [Left Arm] 192/67 H 112/98 H Pulse Oximetry 100 98 03/09/19 16:00 03/09/19 16:29 03/09/19 16:40 Temperature Pulse Rate 55 L 56 L 60 Respiratory Rate 16 19 Blood Pressure 190/75 H 179/65 H Blood Pressure [Left Arm] 163/72 H Pulse Oximetry 100 03/09/19 16:55 Temperature 98.6 F Pulse Rate 61 Respiratory Rate 16 Blood Pressure 163/73 H Blood Pressure [Left Arm] Pulse Oximetry 97 Patient admitted to room 203 from ED, awake, alert, pleasant. Ambulated from WC to bed independently, NIH 0 upon arrival, BG 104 mg/dl, no pain or discomfort. Oriented to room, environment or plan of care. Call light within reach, bed in low position.
[2019-03-09] MEDS: HYDRALAZINE 20 MG/ML VIAL 10 MG IV (18:53)
--- NOTE | 2019-03-09 20:46 | DI.MRI.S_ITS ---
PROCEDURE: MR STROKE Pre- and post-contrast brain MRI, non-contrast brain MR angiogram, pre- and postcontrast neck MR angiogram INDICATIONS: TIA, hypertensive emergency TECHNIQUE: Brain: Noncontrast axial T1 spin echo, axial T2 fast spin echo, sagittal and axial FLAIR, coronal T2 fast spin echo, axial gradient echo, axial diffusion and ADC through the brain. After the administration of contrast, axial 3D VIBE of the cranial vasculature and brain. Brain MRA: Non-contrast 3-D time of flight MR angiogram, with multiple ipaqovo-zlyjkrjqn-jxaghmxwdu (MIP) reformats performed. Neck MRA: Axial and sagittal TruFISP through the neck. Coronal dynamic MR angiogram during administration of contrast in the arterial and venous phases, with 3-dimenstional zftrdtt-xwcffawxn-hslqscwcce (MIP) reformats constructed from subtraction images. COMPARISON: [facility], CT, CT ANGIO HEAD AND NECK, 03/09/2019, 13:36. FINDINGS: Image quality: Excellent. BRAIN: CSF spaces: Ventricles are normal in size and shape. Basal cisterns are patent. No extra-axial fluid collections. Brain: No intracranial bleeds or mass effects. Camacho-white matter interface is normal. Diffusion weighted images show no acute ischemic insults. Brainstem appears normal. Normal intravascular flow voids are present. No abnormal intracranial enhancement. Skull and face: Calvarial marrow signal is normal. Orbits appear normal. Sinuses: Sinuses and mastoids are clear. BRAIN MR ANGIOGRAM: Anterior circulation: Intracranial internal carotid arteries are normal in size and enhancement. The flow within the paired anterior cerebral arteries is normal and symmetric. The flow within the middle cerebral arteries is normal and symmetric. The anterior communicating artery is seen. No stenoses, occlusions, or aneurysms. Posterior circulation: The visualized portions of the vertebral arteries demonstrate normal caliber. Right vertebral artery terminates in a posterior inferior cervical artery. Basilar artery is patent. The flow within the posterior cerebral arteries is normal and symmetric. No stenoses, occlusions, or aneurysms. NECK MR ANGIOGRAM: Carotids: Great vessels demonstrate a conventional anatomy as they arise from the aortic arch. The origins of the common carotid arteries appear patent. The calibers and courses of both common carotid arteries are normal. There is roughly 50% stenosis of the proximal right internal carotid artery. Left internal carotid artery is patent. Posterior circulation: The origins of the vertebral arteries appear patent. More superior portions of both vertebral arteries demonstrate normal course and caliber. The right vertebral artery terminates in a posterior intracerebellar artery. Miscellaneous: Subclavian arteries appear patent. Pre-contrast images through the neck show no soft tissue abnormalities. IMPRESSION: BRAIN MRI: 1. No acute process. No recent infarct. BRAIN MR ANGIOGRAM: Negative cerebral MR angiography. NECK MR ANGIOGRAM: 1. Roughly 50% right internal carotid artery stenosis. No left internal carotid artery stenosis. 2. Patent bilateral vertebral arteries. Dictated by: Maurice Serrato M.D. on 03/10/2019 at 8:23 Approved by: Maurice Serrato M.D. on 03/10/2019 at 8:33
[2019-03-09] MEDS: SODIUM CHLORIDE 0.9% 1,000 ML 50 ML IV (21:12)
[2019-03-09] MEDS: ATORVASTATIN 20 MG TABLET PO (21:15)
[2019-03-10] VITALS (7 sets, daily range): BP systolic 138–178; BP diastolic 57–73; PULSE 49–60; RESP 16–17; TEMP 36.4–36.7; O2SAT 98–100
[2019-03-10] MEDS: SODIUM CHLORIDE 0.9% 1,000 ML 50 ML IV (00:07)
[2019-03-10] MEDS: OXYCODONE/ACETAMINOPHEN 5/325 TABLET 1 TAB PO ×2 (00:07→09:27)
--- NOTE | 2019-03-10 00:12 | P.HP_ITS ---
History of Present Illness Date Patient Seen: 03/09/19 Time Patient Seen: 20:05 Chief complaint: possible stroke Narrative: Ms Gabby Garcia is a 64 year old female with a history hypertension, hypothyroidism, and hyperlipidemia who presents to the ER with a possible stroke. The patient states that at approximately 12-12 30 she developed scotoma in the right that she describes as she had good lines with difficulty word finding. She also describes some chest tightness that is since resolved. The patient had been at [facility] earlier that day with no problems stating she felt great. She reports no balance difficulties, headaches numbness or tingling. She has had a history of high blood pressure and long ago had sharply elevated blood pressures without apparent compromise. She has had no prodromal symptoms and denies recent illness fevers or chills, she has had no complaints of chest pain other than that associated with the onset of her symptoms or palpitations. She denies shortness of breath, exertional dyspnea, cough or wheeze. She has had no abdominal pain and denies nausea or vomiting and has had no change in bowel or bladder habits. She does endorse right shoulder pain for which she has had cortisone injections recently diagnosed with impingement syndrome. She den ies ataxia is fully independent in all ADLs requires no assistive devices. Upon arrival in the ER the patient was afebrile with a temperature of 97.2?, heart rate of 80, blood pressure of 225/77, respirations 13 saturating 100% on room air. Patient went for CT which found no acute intracranial processes, cerebral volume loss and ischemic changes. CTA found no high-grade narrowing of arteries of the neck with a brain but did identify mild to moderate atherosclerotic narrowing of the bilateral internal carotid arteries. On chemistry she has a normal white count of 5.7, hemoglobin 13.5, hematocrit of 39.5 and platelets 250. Her coagulations are within normal limits. On chemistry she has mild hyponatremia at 1:32 a.m. has a BUN of 19 and a creatinine of 0.7 a nonfasting blood sugar of 110. In the ER the patient was given aspirin and hydralazine 10 mg with improvement of blood pressure to 182/78. Patient History Medical History Colon polyps (Acute) History of ectopic (Acute) Hyperlipidemia (Acute) Impingement syndrome of right shoulder (Acute) Hypertension (Chronic) Hypothyroid (Chronic) Hx of ectopic (Resolved) Surgical History History of colonoscopy (Acute) History of exploratory laparotomy (Acute) H/O exploratory laparotomy (Resolved) Social History household members: spouse Smoking Status: Former smoker alcohol intake: current Family & Social History Social History: household members spouse Prior Living Arrangements House Safety & Behavioral: Feels Safe in Current Yes Environment Been Physically Hurt or No Threatened By a Person Suicidal Ideation Description None Tobacco & Substance use: Smoking Status Former smoker alcohol intake current alcohol intake frequency 3 or more drinks per day Substance Use Type does not use Comment: The patient lives in a double wide mobile home with her to whom she has been for 25 years. Her father related to cardiac disease and myocardial infarction. Her mother had heart disease lung and breast cancer. Her brother and had scleroderma and throat cancer. She has an uncle who had an KS at 35 and multiple bypass surgery. She has a stepson who is obese. Occupation: Patient is retired and currently works with [employer]. Smoking: Patient has smoked on and off 1/2 pack per day and quit 1 and half years ago. Alcohol: Patient consumes 2 drinks daily. Substance use: Patient denies use of recreational pharmaceuticals or herbal or cannabis products. Advanced directives: Patient states her wish to be FULL CODE and designates her to be surrogate decision maker. Meds Home Medications Medication Instructions Recorded Confirmed Type [ACTIVE FOLATE] 200 mcg PO DAILY #0 12/14/12 03/09/19 History atenolol 100 mg PO DAILY 11/06/18 03/09/19 History levothyroxine [Synthroid] 150 mcg PO DAILY 11/06/18 03/09/19 History losartan 100 mg PO DAILY 11/06/18 03/09/19 History Allergies Allergy/AdvReac Type Severity Reaction Status Date / Time nadolol Allergy Severe Difficulty Verified 11/06/18 10:50 Breathing Review of Systems Review of Systems All systems reviewed & are unremarkable except as noted in HPI and below Exam Vital Signs (past 8 hours): - 03/09/19 16:00 03/09/19 16:29 07/23/19 16:40 Temperature Pulse Rate 55 L 56 L 60 Respiratory Rate 16 19 Blood Pressure 190/75 H 179/65 H Blood Pressure [Left Arm] 163/72 H Pulse Oximetry 100 03/09/19 16:55 03/09/19 17:35 03/09/19 17:40 Temperature 98.6 F Pulse Rate 61 59 L 59 L Respiratory Rate 16 Blood Pressure 163/73 H 175/75 H 163/73 H Blood Pressure [Left Arm] Pulse Oximetry 97 03/09/19 18:25 03/09/19 18:53 03/09/19 19:39 Temperature Pulse Rate 55 L 53 L Respiratory Rate Blood Pressure 203/75 H 205/73 H Blood Pressure [Left Arm] Pulse Oximetry 93 03/09/19 19:58 03/09/19 20:35 Temperature 98.4 F Pulse Rate 59 L 59 L Respiratory Rate 16 Blood Pressure 182/78 H 182/78 H Blood Pressure [Left Arm] Pulse Oximetry 100 Oxygen Delivery Method Room Air Oxygen Flow Rate 0 Narrative Exam Narrative: GENERAL APPEARANCE: well developed, well nourished, BMI 26.6 and in no acute distress. HEAD: Symmetrical facies, atraumatic, no scalp lesions. EYES: No ptosis, pupils equal, round, reactive to light and accommodation, scl era non-icteric, extraocular movement intact without nystagmus. EARS: normal external structures, no ear pain NOSE: sinuses non tender to percussion, no rhinorrhea. ORAL CAVITY: mucosa moist without lesions or exudate, palate normal, tongue in midline. THROAT: normal, no erythema, no exudate, posterior pharynx normal, uvula midline. NECK/THYROID: neck supple, no jugular venous distention, no carotid bruit on auscultation, no thyromegaly, trachea midline. LYMPH NODES: no cervical or supraclavicular lymphadenopathy. SKIN: warm and dry, no suspicious lesions, no rashes, good turgor. HEART: regular rate and rhythm, S1-S2, 1/6 systolic murmur, no rubs or gallops, brisk capillary refill, no edema LUNGS: clear to auscultation bilaterally, no coarseness crackles or wheezing, no cough present CHEST: Symmetrical movement, no accessory muscle use. ABDOMEN: Soft, no distention, no epigastric or abdominal tenderness on palpation, no guarding or peritoneal signs, no organomegaly, no flank or suprap ubic tenderness, active bowel tones. BACK: Normal curvature, nontender to palpation, no CVA tenderness on percussion EXTREMITIES: moves all extremities, strength is 5/5 and symmetrical, no deformities or joint effusions. NEUROLOGIC: AAO x4, no focal neurologic deficits, cranial nerves II-XII grossly intact , motor strength normal upper and lower extremities, sensory exam intact to light touch, hearing grossly normal to speech. PSYCH: alert, cognitive function intact, good eye contact, appropriate with stable behavior Objective Labs Result Diagrams: 03/09/19 13:45 03/09/19 13:45 Labs: Laboratory Results - last 24 hr 03/09/19 03/09/19 03/09/19 13:45 13:45 13:45 WBC 5.7 RBC 4.08 Hgb 13.5 Hct 39.5 MCV 96.8 MCH 33.2 MCHC 34.3 RDW 12.9 Plt Count 250 Neut % (Auto) 50.5 Lymph % (Auto) 35.6 Baxter % (Auto) 13.0 Eos % (Auto) 0.3 L Baso % (Auto) 0.6 Neut # (Auto) 2900 Lymph # (Auto) 2000 Baxter # (Auto) 700 Eos # (Auto) 0 Baso # (Auto) 0 PT 10.4 INR 0.9 APTT 33 Sodium 132 L Potassium 4.7 Chloride 95 L Carbon Dioxide 27 BUN 19 H Creatinine 0.70 Estimated GFR > 60.0 BUN/Creatinine Ratio 27.1 H Glucose 110 Calcium 9.8 Troponin I < 0.012 Urine Opiates Screen Ur Oxycodone Screen Urine Methadone Screen Ur Barbiturates Screen U Tricyclic Antidepress Ur Phencyclidine Scrn Ur Amphetamines Screen U Methamphetamines Scrn Ur MDMA Scrn (Ecstasy) U Benzodiazepines Scrn Urine Cocaine Screen U Marijuana (THC) Screen 03/09/19 14:57 WBC RBC Hgb Hct MCV MCH MCHC RDW Plt Count Neut % (Auto) Lymph % (Auto) Baxter % (Auto) Eos % (Auto) Baso % (Auto) Neut # (Auto) Lymph # (Auto) Baxter # (Auto) Eos # (Auto) Baso # (Auto) PT INR APTT Sodium Potassium Chloride Carbon Dioxide BUN Creatinine Estimated GFR BUN/Creatinine Ratio Glucose Calcium Troponin I Urine Opiates Screen Negative Ur Oxycodone Screen Negative Urine Methadone Screen Negative Ur Barbiturates Screen Negative U Tricyclic Antidepress Negative Ur Phencyclidine Scrn Negative Ur Amphetamines Screen Negative U Methamphetamines Scrn Negative Ur MDMA Scrn (Ecstasy) Negative U Benzodiazepines Scrn Negative Urine Cocaine Screen Negative U Marijuana (THC) Screen Negative Assessment & Plan Assessment & Plan narrative: This is a 64-year-old female patient who presents to the ER with complaints of aphasia and visual scotoma onset approximately noon in the setting hypertensive emergency. 1. Acute hypertensive emergency on chronic hypertension, present on admission. -patient presented with elevated blood pressure at 225/77 and associated neurological changes with visual scotoma and aphasia. -patient's routine medications include atenolol succinate 100 mg daily and losartan 100 mg daily and states her usual blood pressure is approximately 130/60. -in the ER the patient received hydralazine 10 mg with improvement of blood pressure to 182/78, patient presently is at goal blood pressure to prevent watershed effect. -neurological symptoms have resolved. -continue current home regimen of atenolol 100 mg daily and losartan 100 mg daily. -hydralazine 10 mg every 6 hours as needed for SBP greater than 190 or DBP greater than 100 per greater than 10 minutes. 2. Acute transitory ischemic attack, present on admission. -patient reports sudden onset of right eye scotoma and aphasia without com plaints of headaches, numbness or tingling, weakness or ataxia. -CT scan finds no acute intracranial positive since, CTA finds no significant intracranial vascular abnormalities however does identify [id number] bilateral atherosclerotic narrowing of the internal carotid arteries. -presenting symptoms have resolved however patient does report mild sensory deficit left side. NIH score 1. -patient received aspirin in the emergency department will continue aspirin 81 mg daily. -will obtain echocardiogram -will obtain MRI stroke protocol. -PT and OT to evaluate and treat. 3. Chronic hypothyroidism, presumed stable. -will continue patient's home regimen of levothyroxine 150 mcg daily. -will obtain TSH and free T4 levels. 4. Hyperlipidemia, active. -patient recently told she had elevated cholesterol but has not been prescribed medication, treated with [place] 3 fish oil. -will obtain lipid panel -will start a atorvastatin 20 mg which may be increased pending results of lipid panel. 5. Chronic impingement syndrome right shoulder, stable. -patient with chronic pain right shoulder with reduced range of motion. -Percocet 5/325 every 6 hours as needed for pain. The patient is admitted related to severely elevated blood pressure and neurological symptoms requiring ongoing treatment and monitoring with risks of complications or adverse events. The patient is admitted observation with expected length of stay to be less than 2 midnights. Time Spent With Patient Time with patient: 25 - 35 minutes Scores GCS Kareen coma scale eye opening: Spontaneous Kareen coma scale verbal response: Orientated Kareen coma scale motor response: Obey commands Tutor Key coma scale total score: 15 Quality VTE Deep Vein Thrombosis/Pulmonary Embolism Present on Admission: No
[2019-03-10] MEDS: MAG HYDROX/ALUM/SIMETH 30 ML UDC PO (02:56)
--- NOTE | 2019-03-10 03:06 | PC.NURSE ---
Pt called and complained of mild chest tightness that felt similar to heartburn. Pain did not radiate anywhere else in the body. HR 53, O2 sat 99% on RA, and Sinus bradycardia on the instructional assistant. Pt did not feel short of breath, no lightheadedness, no headache, or any other symptoms. Hospitalist notified and walked to room and assessed and talked w/ pt. Blood pressure taken w/ manual cuff due to automatic cuff malfunctioning. Manual BP 178/68 hospitalist was still in room and aware of result. Pt given Maalox for feeling of heartburn. Will cont. to monitor.
[2019-03-10] MEDS: LEVOTHYROXINE 150 MCG TABLET PO (05:25)
[2019-03-10 06:13] LABS: Add Manual Diff / Slide Review NO; Basophils Absolute Auto 100 /uL (0-100); Blood Urea Nitrogen 14 mg/dL (7-17); Calcium 8.9 mg/dL (8.4-10.2); Carbon Dioxide 24 mmol/L (22-32); Chloride 99 mmol/L (98-107); Cholesterol 212 mg/dL (140-199); Eosinophils Absolute Auto 0 /uL (0-450); Eosinophils Percent Auto 0.7 % (2-4); Estimated Glomerular Filt Rate > 60.0 mL/min (>60); Glucose 93 mg/dL (80-110); HDL Cholesterol 92 mg/dL (40-60); HEMOLYSIS < 15 (0-50); Hematocrit 35.5 % (36-46); LDL Cholesterol Calculated 110 mg/dL (<100); Lymphocytes Absolute Auto 2100 /uL (1100-4500); Lymphocytes Percent Auto 39.7 % (25-40); Mean Corpuscular HGB Conc 33.9 % (30-36); Mean Corpuscular Hemoglobin 32.9 PG (26-34); Mean Corpuscular Volume 96.9 fL (80-100); Monocytes Absolute Auto 500 /uL (0-900); Monocytes Percent Auto 10.3 % (3-14); Neutrophils Absolute Auto 2500 /uL (1500-7000); Neutrophils Percent Auto 48.3 % (50-75); Platelet Count 201 X10^3/uL (150-400); Potassium 3.9 mmol/L (3.4-5.1); Red Blood Cell Count 3.66 X10^6/uL (4.0-5.2); Red Cell Distribution Width 12.8 % (11.6-14.8); Sodium 130 mmol/L (137-145); Triglycerides 50 mg/dL (35-150); White Blood Cell Count 5.3 X10^3/uL (4.5-11.0)
[2019-03-10 06:33] LABS: Free T4, Direct Thyroxine 1.01 ng/dL (0.78-2.19)
[2019-03-10 06:47] LABS: Thyroid Stimulating Hormone 3.88 uIU/mL (0.47-4.68)
--- NOTE | 2019-03-10 08:45 | PT.IIE ---
Surgical History (Last Reviewed 03/10/19 @ 00:06 by DAMIÁN Paul) History of colonoscopy (Acute) History of exploratory laparotomy (Acute) H/O exploratory laparotomy (Resolved) Medical History (Last Reviewed 03/10/19 @ 00:06 by DAMIÁN Paul) Colon polyps (Acute) History of ectopic (Acute) Hyperlipidemia (Acute) Impingement syndrome of right shoulder (Acute) Hypertension (Chronic) Hypothyroid (Chronic) Hx of ectopic (Resolved) Physical Therapy Inpatient Evaluation/Re-Eval M1 PT/OT-IP Prior Functional Status Start: 03/10/19 09:24 Freq: NEEDED Status: Active Protocol: Document 03/10/19 08:45 AB (Rec: 03/10/19 09:30 AB [id number]) Medical Review Prior Functional Status Medical History Reviewed Yes Communication able to make needs known Mobility and Gait pt stated that she is independent with all mobilities and ambulation wtihout AD Social History Household Members spouse Living Arrangements House Number of Floors (Floors) One Floor Number of Stairs To Enter/Railing? 1 step to enter Home Environment Standard Height Toilet Walk in Shower Built-In Shower Seat Home Equipment Hand Held Shower Employment Status [employer] Employed Additional Social History Comment pt works transportation department head for [employer] pt stated that they have a 2 acre land that she takes care of M2 PT-IP Current Condition Start: 03/10/19 09:24 Freq: NEEDED Status: Active Protocol: Document 03/10/19 08:45 AB (Rec: 03/10/19 09:30 AB [id number]) Physical Therapy Current Condition Current Condition Evaluation Date 03/10/19 Treatment Diagnosis TIA; difficulty in walking Onset Date 03/09/19 M3 PT-IP Subjective Start: 03/10/19 09:24 Freq: NEEDED Status: Active Protocol: Document 03/10/19 08:45 AB (Rec: 03/10/19 09:30 AB [id number]) Subjective Physical Therapy Visit Type Type Initial Evaluation Visit Start Time 08:45 Visit Stop Time 09:00 Total Visit Minutes 15 Number of CRYSTAL GROWER Visits 0 Physical Therapy Visit Comments Patient Comments pt agreeable to do PT Therapy Pain Assessment Pain Present Pain Present Denied Pain M4 PT-IP Mobility and Gait Start: 03/10/19 09:24 Freq: NEEDED Status: Active Protocol: Document 03/10/19 08:45 AB (Rec: 03/10/19 09:30 AB [id number]) PT-Bed Mobility Assessment Supine to Sit Supine to Sit Independent Sit to Supine Sit to Supine Independent Scooting Scooting to Edge of Bed Independent PT-Transfer Assessment Sit to and From Stand Sit to and from Stand Independent Equipment Transfer Assistive Device None Gait Belt Transfers Transfer Technique pt ambulated in room without AD Transfer Ability Level of Assist Independent Gait Assessment Gait Gait Assistance Required: Independent Distance (Feet) 350 Able to Maintain Weight Bearing Status Yes During Gait Assistive Devices Assistive Device None Gait Belt Orthotic/Prosthetic Devices or Brace: No Gait Deviations General Gait Pattern Within Normal Limits Stair Climbing Assessment Evaluation Level of Assist On Stairs Independent Devices Stair Climbing Assistive Devices None Technique/Endurance Stair Climbing Technique Step Over Step Number of Steps Climbed 3 Query Text: Stair Climbing Set # Repetitions (reps) 1 PT-Balance Assessment Sitting Balance and Reactions Static Sitting Balance Ability Normal Dynamic Sitting Balance Ability Normal Standing Balance and Reactions Static Standing Balance Ability Normal Dynamic Standing Balance Ability Good Device Used without AD M5 PT-IP Objective Assessments Start: 03/10/19 09:24 Freq: NEEDED Status: Active Protocol: Document 03/10/19 08:45 AB (Rec: 03/10/19 09:30 AB [id number]) Orientation Orientation/Cognition Level of Alertness Alert Orientation Name Age Birthday Month Date Year Day of Week Place Situation Language Function Ability No Deficits Noted Safety Awareness Understands Safety Issues Memory Description No Deficits Noted Gross Range of Motion Lower Extremity ROM Assessment Within Functional Limits Strength Lower Extremity Strength Assessment Within Functional Limits Coordination Assessment Gross Coordination Gross Coordination WNL Sensation Assessment Sensation Gross Sensation WNL Muscle Tone Muscle Tone WNL Yes M6 PT-IP Treatment Start: 03/10/19 09:24 Freq: NEEDED Status: Active Protocol: Document 03/10/19 08:45 AB (Rec: 03/10/19 09:30 AB [id number]) Physical Therapy Treatment Education Education Provided Safety M7 PT-IP Assessment and Plan Start: 03/10/19 09:24 Freq: NEEDED Status: Active Protocol: Document 03/10/19 08:45 AB (Rec: 03/10/19 09:30 AB [id number]) PT Summary Assessment and Plan Potential Rehabilitation Potential Good Status of Condition at Evaluation Stable Summary Assessment Summary PT eval completed and pt is independent with all mobilities and ambulation without AD. No further PT intervention indicated at this time. pt may go home when medically stable. Frequency of Treatment Frequency Of Treatment Discharge Recommendations To Nursing Amount of Assist Needed Independent Discharge Recommendations PT Discharge Recommendations Home
[2019-03-10] MEDS: LOSARTAN 50 MG TABLET 100 MG PO (09:24)
[2019-03-10] MEDS: ASPIRIN EC 81 MG TABLET PO (09:24)
[2019-03-10] MEDS: ATENOLOL 50 MG TABLET 100 MG PO (09:24)
--- NOTE | 2019-03-10 10:39 | CM.DANOTE ---
DCP: Case received, EMR reviewed and met with patient. Introduced self and role. DCP template completed with information currently available. Patient is a 64 year old female who admitted yesterday afternoon to the care of the hospitalist team. PCP: She sees a mash tub cooker operator, Dr. Chino. Payer: confirmed: Medicare/[facility]. Patient came to the hospital via private vehicle secondary to blurred vision, dizziness. Patient was noted to have an increased blood pressure over the 200 range. Met with patient in her room. She is alert and oriented, pleasant. She lives here in [place] with her spouse, Rolf. She stated, she does have a history of high blood pressure, and has been on medications for this. She is independent. Discussed primary care providers. She has been going to a mash tub cooker operator in [place]. Stated, she has not seen a regular provider for quite a while, but mentioned going to see Lizzie Worley a while back. Let her know that this field nurse case manager could provide her with some numbers of primary care providers. Discussed at team rounds, updated hospitalist. She stated that patient may be having an echo and MRI today. P: DCP to continue to follow as plan unfolds, and provide providers for patient at discharge. Frances Ann, LYDIA/[place] Team Leader
--- NOTE | 2019-03-10 11:24 | OT.IP.EVAL ---
Past Medical History (Last Reviewed 03/10/19 @ 00:06 by DAMIÁN Paul) Colon polyps (Acute) History of ectopic (Acute) Hyperlipidemia (Acute) Impingement syndrome of right shoulder (Acute) Hypertension (Chronic) Hypothyroid (Chronic) Hx of ectopic (Resolved) Surgical History (Last Reviewed 03/10/19 @ 00:06 by DAMIÁN Paul) History of colonoscopy (Acute) History of exploratory laparotomy (Acute) H/O exploratory laparotomy (Resolved) Occupational Therapy Inpatient Evaluation/Re-Eval M1 PT/OT-IP Prior Functional Status Start: 03/10/19 09:24 Freq: NEEDED Status: Active Protocol: Document 03/10/19 11:24 PJAlice (Rec: 03/10/19 13:18 JACI [id number]) Medical Review Prior Functional Status Medical History Reviewed Yes Communication WNL Mobility and Gait Pt stated that she is independent with all mobility and ambulates without a device . Activities of Daily Living and IADL's Pt independent with all self care, IADLS, drives. She is very active and attends [employer] and line dancing classed weekly. She manages their 2 acre property. She state her is currently undergoing tx for throat cancer. Social History Household Members spouse Living Arrangements Mobile home Number of Floors (Floors) One Floor Number of Stairs To Enter/Railing? pt lives in double wide mobile home with 1 step to enter Home Environment Standard Height Toilet Walk in Shower Home Equipment Hand Held Shower M2 OT-IP Current Condition Start: 03/10/19 12:58 Freq: Status: Active Protocol: Document 03/10/19 11:24 PJM (Rec: 03/10/19 13:18 [facility] [id number]) Occupational Therapy Current Condition Current Condition Evaluation Date 03/10/19 Treatment Diagnosis TIA with R field scotoma and word finding deficits Diagnosis Onset Date 03/09/19 M3 OT- IP Subjective and Pain Start: 03/10/19 12:58 Freq: Status: Active Protocol: Document 03/10/19 11:24 PJM (Rec: 03/10/19 13:18 [facility] [id number]) OT- Subjective Occupational Therapy Visit Type Type Initial Evaluation Visit Start Time 11:04 Visit Stop Time 11:24 Total Visit Minutes 20 Occupational Therapy Visit Comments Patient Comments I feel like I am back to normal now. Patient/Caregiver Goals to go home later today and resume normal activities OT Pain Assessment Pain When Pain Assessed After Treatment Pain Present Pain Present Denied Pain M4 OT- IP ADL's Start: 03/10/19 12:58 Freq: Status: Active Protocol: Document 03/10/19 11:24 PJM (Rec: 03/10/19 13:18 [facility] [id number]) OT [id number] General Evaluation Self-Feeding Ability Independent OT ADL-Grooming General Evaluation Grooming Ability Independent Comments OT Grooming Comments standing at sink OT ADL-Oral Care General Eval Oral Care Ability Independent Comments Oral Care Comments standing at sink OT ADL-Dressing General Eval Upper Body Dressing Ability Independent Lower Body Dressing Ability Independent OT ADL-Toileting General Evaluation Toileting Ability Independent OT ADL-Bathing Comments OT Bathing Comments did not occur, but no deficits identified that would interfere M5 OT- IP IADL's Start: 03/10/19 12:58 Freq: Status: Active Protocol: Document 03/10/19 11:24 PJ (Rec: 03/10/19 13:18 [facility] [id number]) OT-Instrumental Activities of Daily Living Deficits IADL Deficits Identified No Deficits Home Safety Awareness Awareness of Need for Assistance at Home Good Awareness Ability to Problem Solve Emergency Able to Problem Solve Situations Medication Management Medication Management No Deficits Identified Medication Management Comments recommend pt use pillbox with new medications added for BP Money Management Money Management No Deficits Identified Meal Preparation Meal Preparation No Deficits Identified Manager Nuclear Manager Nuclear No Deficits Identified Driving Driving Comments no concerns identified; pt's scores WNL on Trailmaking A/B M6 OT- IP Functional Cognition Start: 03/10/19 12:58 Freq: Status: Active Protocol: Document 03/10/19 11:24 PJ (Rec: 03/10/19 13:18 [facility] [id number]) Cognitive Factors Limiting Selfcare Function Cognitive Ability Level of Alertness Alert Patient Orientation Name Age Birthday Month Date Year Day of Week Place Situation Attention Span Ability Capable of Focused Attention Capable of Sustained Attention Ability to Follow Commands Able to Follow Multi-Step Commands Safety Awareness No Deficits Noted Problem Solving Ability No deficits Noted Cognitive Tests MOCA 24/30 per S.T. report indicating mild impairment, see their report for details Cognitive Comments Cognitive Assessment Comments Pt completed Trailmaking A in 27 sec (<39 sec is WNL). Pt completed Trails B in 72 sec (<85 is WNL). OT- Vision and Hearing OT- Hearing Assessment OT- Hearing Assessment WFL OT- Vision Assessment Visual Acuity WFL Glasses All The Time Visual Attentiveness WFL Occular Pursuits WFL Vision Assessment Comments Peripheral vision intact and pt reports wavy lines in R visual field have resolved. M7 OT- IP Mobility and Balance Start: 03/10/19 12:58 Freq: Status: Active Protocol: Document 03/10/19 11:24 PJM (Rec: 03/10/19 13:18 PJ [id number]) OT- Bed Mobility Assessment Rolling Type of Rolling Roll to Right Level of Assistance Independent Supine to Sit Supine to Sit Assist Independent Sit to Supine Sit to Supine Assist Independent Scooting Scooting to Edge of Bed Independent OT-Transfer Assessment Sit to and From Stand Sit to and from Stand Independent Transfers Transfer Ability Independent Technique Transfer Destination Bed Chair Toilet Transfer Technique Stand Step Pivot Devices Transfer Assistive Devices None OT- Gait Assessment Gait Gait Assistance Required: Independent Assistive Devices Assistive Device None Comments Gait Ability Comments pt up in room ad michelle and has been cleared by P.T. Pt able to retrieve items from floor and closet. OT- Balance Assessment Sitting Balance and Reactions Static Sitting Balance Ability Good Dynamic Sitting Balance Ability Good Standing Balance and Reactions Static Standing Balance Ability Good Dynamic Standing Balance Ability Good M8 OT- IP Objective Assessments Start: 03/10/19 12:58 Freq: Status: Active Protocol: Document 03/10/19 11:24 PJM (Rec: 03/10/19 13:18 [facility] [id number]) OT Gross Range of Motion Upper Extremity Range of Motion Assessment Right Impaired ROM Impairments RUE: Pt has R shoulder impingement syndrome per chart notes and is currently receiving P.T. for this. She also has hx of R carpal tunnel syndrome. AROM WNL throughout RUE except, pt assists R shoulder into full scaption with LUE and assists RUE with eccentric lowering due to impingement pain at ~90 degrees flexion. LUE: WNL OT Strength Upper Extremity Strength Assessment Right Impaired Hand Physicist [place] Strength Hand Dominance Right Comments Strength Comments R shoulder strength NT due to pain, distal strength WNL. LUE WNL throughout OT- Coordination Assessment Comments Coordination Comments BUE WNL OT-Muscle Tone Assessment Muscle Tone WNL Yes Comments Muscle Tone Comments BUE WNL OT Sensation Assessment Comments Summary Comments BUE WNL, but pt has episodes of numbness in median nerve distribution of R hand due to carpal tunnel syndrome. Edema Edema Absent M9 OT- IP Assessment and Plan Start: 03/10/19 12:58 Freq: Status: Active Protocol: Document 03/10/19 11:24 PJAlice (Rec: 03/10/19 13:18 PJM [id number]) OT Summary Assessment and Plan Potential Rehabilitation Potential Excellent Summary Assessment Summary Pt is a 64 yr old woman admitted with TIA symptoms of R visual field scomata and word finding deficits now resolved. No new deficits identified in vision, BUE sensorimotor function, ADL/ IADL performance. Note S.T. reports pt's MOCA score is 24/ 30 indicating mild impairment. See their report for details and recommendations. No OT goals identified for this admission. Pt plans to d/c home later today with her who is currently undergoing cancer tx. No further OT services needed. Frequency of Treatment Frequency Of Treatment Discharge Discharge Recommendations OT Discharge Recommendations Home Home Equipment Needs none
--- NOTE | 2019-03-10 14:12 | ST.IPIE ---
Past Medical History (Last Reviewed 03/10/19 @ 00:06 by DAMIÁN Paul) Colon polyps (Acute Medical) History of ectopic (Acute Medical) Hyperlipidemia (Acute Medical) Impingement syndrome of right shoulder (Acute Medical) Hypertension (Chronic Medical) Hypothyroid (Chronic Medical) Hx of ectopic (Resolved Medical) ST IP Initial Evaulation Report [employer] Cognitive/Memory Evaluation Start: 03/10/19 13:59 Freq: Status: Active Protocol: Document 03/10/19 14:00 TLC (Rec: 03/10/19 14:12 TLC [id number]) Evaluation of Cognition Session Time Visit Start Time 09:50 Visit Stop Time 10:25 Total Visit Minutes 35 Referral Referring Physician DAMIÁN Paul Reason for Referral TIA Past Medical History Patient History Patient presented to the ER yesterday due to complaints of vision changes and difficulty finding words. She was admitted for TIA. Symptoms have since resolved. She lives at home with her who is undergoing radiation for throat cancer. 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 Hearing Hearing Level Normal Vision Comments Wears glasses Previous Therapy Previous Speech-Language Therapy No Oral Motor Examination Oral Motor Exam Completed Yes Results Lingual, labial and buccal strength, range of motion and coordination were all WFL. Subjective Subjective Patient seen lying in bed. Agreed to participate in evaluation though stated she did not sleep much at all last night. Her entered the room chcf through the evaluation. - Informal Assessment Receptive Language Normal Yes Expressive Language Normal Yes Articulation Normal Yes Cognition Normal No Assessment Findings No impairments in speech or language observed through informal assessment. Speech was clear and 100% intelligible with no signs of dysarthria or motor speech impairment. She followed directions and followed along in a conversation without difficulty. She did not display word finding difficulty in conversation and during naming, she correclty named 6/6 objects requiring one phonemic cue to name hammock. Patient scored 24/30 on Rafa Cognitive Assessment (MoCA) indicating mild neurocognitive impairment . She sored 4/4 points on visuospatial/executive, 3/3 on naming, 6/6 on attention, 3/3 on language, 1/5 on delayed recall and 5/6 on orientation (off by one day). I suspect and both she and her agree these scores accurately reflect her baseline cognitive function and are not a result of her TIA, therefore, no acute therapy recommended. I provided her with written strategies to improve memory and also discussed outpatient speech therapy to improve short term recall. She and her deny any significant issues at home or work resulting from memory impairment. Recommendations Recommend patient talk to her PCP about a speech therapy referral to further assess and treat neurocognitive impairment. - Cognition - Memory - Total Time Full Evaluation Time 35
--- NOTE | 2019-03-10 14:20 | P.DS_ITS ---
History of Present Illness Date Patient Seen: 03/09/19 Chief complaint: possible stroke Narrative: Written by Cam [employer]EL: Ms Gabby Garcia is a 64 year old female with a history hypertension, hypothyroidism, and hyperlipidemia who presents to the ER with a possible stroke. The patient states that at approximately 12-12 30 she developed scotoma in the right that she describes as she had good lines with difficulty word finding. She also describes some chest tightness that is since resolved. The patient had been at [facility] earlier that day with no problems stating she felt great. She reports no balance difficulties, headaches numbness or tingling. She has had a history of high blood pressure and long ago had sharply elevated blood pressures without apparent compromise. She has had no prodromal symptoms and denies recent illness fevers or chills, she has had no complaints of chest pain other than that associated with the onset of her symptoms or palpitations. She denies shortness of breath, exertional dyspnea, cough or wheeze. She has had no abdominal pain and denies nausea or vomiting and has had no change in bowel or bladder habits. She does endorse right shoulder pain for which she has had cortisone injections recently diagnosed with impingement syndrome. She den ies ataxia is fully independent in all ADLs requires no assistive devices. Upon arrival in the ER the patient was afebrile with a temperature of 97.2?, heart rate of 80, blood pressure of 225/77, respirations 13 saturating 100% on room air. Patient went for CT which found no acute intracranial processes, cerebral volume loss and ischemic changes. CTA found no high-grade narrowing of arteries of the neck with a brain but did identify mild to moderate atherosclerotic narrowing of the bilateral internal carotid arteries. On chemistry she has a normal white count of 5.7, hemoglobin 13.5, hematocrit of 39.5 and platelets 250. Her coagulations are within normal limits. On chemistry she has mild hyponatremia at 1:32 a.m. has a BUN of 19 and a creatinine of 0.7 a nonfasting blood sugar of 110. In the ER the patient was given aspirin and hydralazine 10 mg with improvement of blood pressure to 182/78. Discharge Providers Date of admission: 03/09/19 16:37 Discharge Date: 03/10/19 Consults: 03/09/19 20:49 Consult to Discharge Planning Routine Comment: Consult to Occupational Therapy Evaluate & Treat Comment: TIA, hypertensive emergency Physician Instructions: Evaluate and treat Consult to Physical Therapy Evaluate & Treat Comment: TIA, hypertensive emergency Physician Instructions: Evaluate and Treat 03/09/19 20:51 Consult to Speech Therapy Evaluate & Treat Comment: TIA, hypertensive emergency Physician Instructions: Evaluate and treat Discharge provider: Rosa Fowler DO Summary Discharge Diagnosis: 1. Acute hypertensive emergency on chronic hypertension, present on admission. Resolved. 2. Acute TIA, secondary to hypertensive emergency, present on admission. Resolved. 3. Hypothyroidism, chronic, present on admission. Stable. 4. Hyperlipidemia, chronic, present on admission. Stable. 5. Right shoulder pain likely secondary to impingement syndrome, chronic, present on admission. Stable. 6. Alcohol dependence, chronic, present on admission. Stable. Hospital Course: Gabby Garcia is a 64-year-old female with a past medical history significant for hypertension, hypothyroidism, and untreated hyperlipidemia who presented to ED with abrupt onset vision changes, expressive aphasia, and left-sided weakness. 1. Acute hypertensive emergency on chronic hypertension, present on admission. Resolved. -Patient presented with significant elevated BP of 225/77 with associated neurological changes as below that quickly resolved. -Patient's antihypertensive regimen includes: Atenolol succinate 100 mg daily and losartan 100 mg daily. Patient reports her BP is usually 130/60. Patient also significantly bradycardic average HR mid 50s with lowest HR 44 bpm. -Received hydralazine 10 mg PO x1 with improvement of blood pressure to 182/78. Allowed for permissive hypertension for 24 hours to prevent watershed effect. Ordered hydralazine 10 mg IV every 6 hours as needed for SBP >200 mmHg and DBP > 100 mmHg. -Discontinued atenolol 100 mg daily due to significant bradycardia. Continued losartan 100 mg daily and added amlodipine 5 mg daily which may be up titrated to 10 mg daily outpatient for further BP control. Decreased blood pressure slowly and by approximately 25% during hospitalization. Recommended close outpatient monitoring and consideration of ambulatory blood pressure monitor to assure accuracy. -Recommended outpatient sleep study as patient and her spouse reports significant snoring. Recommended significantly reducing sodium (DASH diet) and alcohol intake as likely contributing substantially to hypertension. -Patient does not have PCP and provided resources to establish care with a PCP in the community. 2. Acute TIA, secondary to hypertensive emergency, present on admission. Resolved. -Patient presented with sudden onset right eye scotoma, expressive aphasia, left -sided weakness/decreased sensation resolving within 30 minutes of onset. No complaints of headaches, epistasis, numbness or tingling, weakness or ataxia. -NIH 0-1 for possible abnormal sensation on left upper extremity. -CT brain without contrast and CTA head and neck did not demonstrate any acute intracranial process or significant vascular abnormalities. Cerebral volume loss and chronic microvascular ischemic changes. -Received aspirin 324 mg x1 in ED. Continued aspirin 81 mg daily. -MR stroke protocol demonstrated no acute intracranial process, no recent infarct, roughly 50% right internal carotid artery stenosis, no left internal carotid artery stenosis -Echocardiogram demonstrated normal LV size, motion and LVEF 60-65%, normal right ventricular size and function, both atria are moderately dilated, no significant valvular abnormalities, and no interatrial shunt. -PT and OT consulted for evaluation and treatment. Recommend home independently with no needs. 3. Hypothyroidism, chronic, present on admission. Stable. -TSH normal at 3.8. Free T4 normal at 1.01. -Continued home levothyroxine 150 mcg daily. 4. Hyperlipidemia, chronic, present on admission. Stable. -Patient recently told she had elevated cholesterol but has not been prescribed medication, treated with [place] 3 fish oil. -Fasting lipid panel uncontrolled and demonstrated: Total cholesterol 212, triglycerides 50, LDL 110 (goal <100) , HDL 92. -Started and continued low-dose rosuvastatin 5 mg daily at bedtime. Patient had some aversion to statin therapy but amenable to start statin therapy with close monitoring after thorough discussion of efficacy and 3 mechanisms of action. 5. Right shoulder pain likely secondary to impingement syndrome, chronic, present on admission. Stable. -Patient with chronic right shoulder pain and reduced range of motion. Pain may slightly contribute to hypertension. -Ordered percocet 5/325 every 6 hours as needed for pain. 6. Alcohol dependence, chronic, present on admission. Stable. -Patient reports she consumes several glasses of wine 2-4 per night. -Discussed alcohol dependence and likelihood that this is contributing significantly to her uncontrolled hypertension. Recommended cutting back substantially or abstaining altogether. Status at Discharge Functional status at discharge: independent ambulation Overall status at discharge: patient is back to baseline Exam Vital Signs (past 8 hours): - 03/10/19 08:00 03/10/19 09:00 03/10/19 13:00 Temperature 97.6 F 98.1 F Pulse Rate 60 52 L Respiratory Rate 16 17 Blood Pressure 138/57 L 149/66 H Pulse Oximetry 100 100 98 Oxygen Delivery Method Room Air Oxygen Flow Rate 0 Narrative Exam Narrative: General: Older female sitting in bed and in no acute distress, well-developed, well-nourished, appropriately interactive. HEENT: Normocephalic, atraumatic. External ears without defect. Pupils equal, round, and reactive to light. Anicteric sclerae, moist conjunctivae, and no lid lag. Oropharynx free of erythema and cobble stoning with moist mucosa. Neck: Supple with full range of motion. No jugular venous distension. No bruits. No lymphadenopathy or thyromegaly. Cardiovascular: Regular rhythm, bradycardic, without murmurs, rubs, or gallops appreciated Pulmonary: Clear to auscultation bilaterally without crackles, wheezes, or rhonchi. Normal respiratory effort with no use of accessory muscles. Abdomen: Bowel tones present. Soft, nontender, nondistended. No hepatosplenomegaly or masses appreciated. Extremities: No clubbing, cyanosis, or edema. Skin: Normal temperature, turgor, and texture; no rash, ulcers, or subcutaneous nodules appreciated. Neurological: Cranial nerves grossly intact. Normal muscle strength, tone, and bulk. Reflexes, coordination, and sensory function within normal limits. No known gait impairment. Psychiatric: Mildly anxious mood and normal affect. Alert and oriented to person, place, and time. Objective Labs Result Diagrams: 03/10/19 05:52 03/10/19 05:52 Labs: Laboratory Results - last 24 hr 03/09/19 03/10/19 03/10/19 14:57 05:52 05:52 WBC 5.3 RBC 3.66 L Hgb 12.0 Hct 35.5 L MCV 96.9 MCH 32.9 MCHC 33.9 RDW 12.8 Plt Count 201 Neut % (Auto) 48.3 L Lymph % (Auto) 39.7 Bracken % (Auto) 10.3 Eos % (Auto) 0.7 L Baso % (Auto) 1.0 Neut # (Auto) 2500 Lymph # (Auto) 2100 [place] # (Auto) 500 Eos # (Auto) 0 Baso # (Auto) 100 Sodium 130 L Potassium 3.9 Chloride 99 Carbon Dioxide 24 BUN 14 Creatinine 0.50 L Estimated GFR > 60.0 BUN/Creatinine Ratio 28.0 H Glucose 93 Calcium 8.9 Triglycerides 50 Cholesterol 212 H LDL Cholesterol, Calc 110 H HDL Cholesterol 92 H TSH Free T4 Urine Opiates Screen Negative Ur Oxycodone Screen Negative Urine Methadone Screen Negative Ur Barbiturates Screen Negative U Tricyclic Antidepress Negative Ur Phencyclidine Scrn Negative Ur Amphetamines Screen Negative U Methamphetamines Scrn Negative Ur MDMA Scrn (Ecstasy) Negative U Benzodiazepines Scrn Negative Urine Cocaine Screen Negative U Marijuana (THC) Screen Negative 03/10/19 05:52 WBC RBC Hgb Hct MCV MCH MCHC RDW Plt Count Neut % (Auto) Lymph % (Auto) [place]ack[place] % (Auto) Eos % (Auto) Baso % (Auto) Neut # (Auto) Lymph # (Auto) Bracken # (Auto) Eos # (Auto) Baso # (Auto) Sodium Potassium Chloride Carbon Dioxide BUN Creatinine Estimated GFR BUN/Creatinine Ratio Glucose Calcium Triglycerides Cholesterol LDL Cholesterol, Calc HDL Cholesterol TSH 3.88 Free T4 1.01 Urine Opiates Screen Ur Oxycodone Screen Urine Methadone Screen Ur Barbiturates Screen U Tricyclic Antidepress Ur Phencyclidine Scrn Ur Amphetamines Screen U Methamphetamines Scrn Ur MDMA Scrn (Ecstasy) U Benzodiazepines Scrn Urine Cocaine Screen U Marijuana (THC) Screen Discharge Plan Discharge Plan Patient Disposition: Home Discharge comment: You are being discharged home. Please follow-up with a primary care provider in 1 week regarding your hospitalization for which you were provided a list of providers in the area. Please continue your losartan 100 mg daily. Your atenolol has been discontinued. You have been prescribed amlodipine 5 mg daily which may need to be increased if he your blood pressure continues to remain high. You also have been prescribed aspirin 81 mg daily (please take with food and stay well hydrated) and rosuvastatin 5 mg daily at bedtime for stroke prevention and cardiovascular protection. You need to cut back on alcohol substantially or stop altogether as this is likely contributing significantly to your high blood pressure. You also need to cut back on salt and you were provided a DASH diet handout. Continue lifestyle modification including diet and exercise as discussed. You likely need a sleep study to rule out obstructive sleep apnea and if present be treated with CPAP as this also contributes to your high blood pressure and increases your risk of cardiovascular disease (stroke and heart attack) and early onset dementia. Discharge Med Rec/Prescriptions Prescriptions: New amlodipine [Norvasc] 5 mg Tablet 5 mg PO DAILY Qty: 30 RF: 0 aspirin 81 mg Tablet,Delayed Release (Dr/Ec) 81 mg PO DAILY Qty: 30 RF: 0 rosuvastatin 10 mg Tablet 5 mg PO BEDTIME Qty: 30 RF: 0 Continued [ACTIVE FOLATE] tablet 200 mcg PO DAILY Qty: 0 RF: 0 levothyroxine [Synthroid] 150 mcg Tablet 150 mcg PO DAILY RF: 0 losartan 100 mg Tablet 100 mg PO DAILY RF: 0 Discontinued atenolol 100 mg Tablet 100 mg PO DAILY RF: 0 Provider Discharge Instructions Diet: Diet as Tolerated, Low-fat, Low-sodium and Low-cholesterol Activity: Activity as tolerated Visit Report/Discharge Packet Instructions: The Mediterranean Diet and Good Health, The DASH Diet, Treatments for High Blood Pressure: More Than Just Taking a Pill, DASH Diet Helps Maintain a Healthy Blood Pressure, Recommendations to Help Prevent High Blood Pressure, Alcohol Use Disorder, Essential Hypertension, Red Meat Link to Hypertension in Women Over 45 Years, DI for Alcohol Abuse, Mediterranean Diet May Reduce the Risk of Stroke in People with High Risk o Discharge Data Attending Provider: Rosa Fowler Admit Date/Time: 03/09/19 16:37 Discharges patient from system. Discharge Date/Time: 03/10/19 16:18 Quality VTE Deep Vein Thrombosis/Pulmonary Embolism Present on Admission: No
--- NOTE | 2019-03-10 14:24 | CM.DPC ---
DCP Cont: Patient is being discharged home today. Went ahead and obtained some provider's information, [facility], [facility], as well as [facility] for patient. Gave the information to patient. in the room. She will be following up with one of the clinics. P: Patient will be discharged home today, and will follow up with provider. Frances Ann RN/[employer]
--- NOTE | 2019-04-01 16:23 | PC.NURSE ---
Late entry- Pt admitted with fluids running at 1640. Fluids finished as inpatient.
== END 2019-03-10 16:18 | disposition home or self-care (01) ==
LOC: ED 16:04 → AC 16:37
PROVIDERS: Nurse Practitioner Adult Health; Admitting Provider Internal Medicine; Emergency Provider Emergency Medicine; Family Provider Physical Medicine & Rehabilitation Pain Medicine; Visit Provider Internal Medicine
DX: I16.1 Hypertensive emergency (principal); R29.818 Other symptoms and signs involving the nervous system; I10 Essential (primary) hypertension; E03.9 Hypothyroidism, unspecified; Z87.891 Personal history of nicotine dependence; G45.9 Transient cerebral ischemic attack, unspecified; E78.5 Hyperlipidemia, unspecified; M75.41 Impingement syndrome of right shoulder
CPT/HCPCS: 36415; 36591; 70450; 70496; 70498; 70548; 70553; 71045; 80048; 80061; 80305; 81003; 82962; 84439; 84443; 84484; 85025; 85610; 85730; 92523; 93005; 93306; 94762; 97161; 97165; 99283; 99285; G0378; A9579; J0360; Q9967

== ENCOUNTER 2019-03-19 14:32 | Emergency (ER) | payer MEDICARE, OTHER, SELFPAY ==
[2019-03-09 16:54] VITALS: BMI 25.4
--- NOTE | 2019-03-19 14:51 | DI.CT.S_ITS ---
PROCEDURE: CT HEAD/BRAIN WO CON INDICATIONS: blurry vision now resolved TECHNIQUE: Noncontrast 4.5 mm thick angled axial sections acquired from the foramen magnum to the vertex, with coronal and sagittal reformats. For radiation dose reduction, the following was used: automated exposure control, adjustment of mA and/or kV according to patient size. COMPARISON: [facility], MR, MR STROKE, 03/10/2019, 7:01. [facility], CT, CT HEAD/BRAIN WO CON, 03/09/2019, 13:36. FINDINGS: Image quality: Excellent. CSF spaces: Basal cisterns are patent. No extra-axial fluid collections. The ventricles are symmetric in size and shape. Brain: No intracranial bleeds or masses. There is cerebral volume loss for age, with resultant ventricular and sulcal prominence. There are periventricular and deep white matter chronic small vessel ischemic changes. There is intracranial internal carotid artery and vertebral artery atherosclerosis. Skull and face: Calvarium and visualized facial bones appear intact, without suspicious lesions. Sinuses: Visualized sinuses and mastoids are clear. IMPRESSION: No acute intracranial disease process. Dictated by: Sarah Kang MD, PhD on 03/19/2019 at 15:09 Approved by: Sarah Kang MD, PhD on 03/19/2019 at 15:12
[2019-03-19 14:53] VITALS: BP 182/66; PULSE 57; RESP 18; TEMP 36.4; O2SAT 99; BMI 26.9
--- NOTE | 2019-03-19 15:05 | ED_ITS ---
HPI - Neuro Symptoms/Deficit General Chief Complaint: Neuro Symptoms/Deficit Stated Complaint: tia last week,odd vision just now Time Seen by Provider: 03/19/19 14:34 Source: patient Mode of arrival: ambulatory Limitations: no limitations History of Present Illness HPI Narrative: Patient is 64-year-old female who presents with right eye blurriness all lasting under 10 minutes just prior to arrival. She had symptoms last week and was admitted for a TIA she actually had an MRI and an echocardiogram both negative. She had some pressure medication while in the hospital due to hypertension. She said they were making her feel very well so they were recently changed by her PCP this week. Today she was talking to her friend when she had some blurriness of the right eye. She said it is not blackening she did not lose her vision it has now completely resolved. She previously had difficulty with speech but no longer has difficulty with speech and that did not happen today. She has no weakness numbness tingling. She does have some chest discomfort today. It is nonradiating she denies any shortness of breath. On Anticoagulants: Yes (aspirin) Related Data Home Medications Medication Instructions Recorded Confirmed [ACTIVE FOLATE] 200 mcg PO DAILY #0 12/14/12 03/17/19 levothyroxine [Synthroid] 150 mcg PO DAILY 11/06/18 03/17/19 losartan 100 mg PO DAILY 11/06/18 03/17/19 Previous Rx's Medication Instructions Recorded amlodipine [Norvasc] 5 mg PO DAILY #30 tab 03/10/19 aspirin 81 mg PO DAILY #30 tab 03/10/19 atenolol 100 mg tablet 100 mg PO DAILY #90 tab 03/17/19 Allergies Allergy/AdvReac Type Severity Reaction Status Date / Time nadolol Allergy Severe Difficulty Verified 03/19/19 14:53 Breathing Review of Systems Review of Systems GENERAL: Denies chills, fatigue, malaise, fever, sweats, travel HEENT: Denies sinus pain, ear pain, sore throat, difficulty swallowing, neck pain RESPIRATORY: Denies dyspnea, cough, wheezing, hemoptysis, sputum. CARDIOVASCULAR: Denies chest pain, palpitations, orthopnea, edema GASTROINTESTINAL: Denies nausea, vomiting, abdominal pain, diarrhea, constipation, melena. : Denies dysuria, frequency, incontinence, hematuria, urinary retention, flank pain. MUSCULOSKELETAL: Denies weakness, joint pain, or bony pain SKIN: No rash, no erythema, no pruritus NEUROLOGIC: See HPI PSYCHIATRIC: No concerning psychosocial issues. 12 point review of systems is negative except for those stated above and HPI [facility] Medical History Colon polyps (Acute) History of ectopic (Acute) Hyperlipidemia (Acute) Impingement syndrome of right shoulder (Acute) Hypertension (Chronic) Hypothyroid (Chronic) Hx of ectopic (Resolved) Surgical History History of colonoscopy (Acute) History of exploratory laparotomy (Acute) H/O exploratory laparotomy (Resolved) Social History household members: spouse Smoking Status: Former smoker alcohol intake: current Social History household members: spouse Smoking Status: Former smoker alcohol intake: current Exam Initial Vital Signs Initial Vital Signs: Vital Signs Temperature 97.6 F 03/19/19 14:53 Pulse Rate 57 L 03/19/19 14:53 Respiratory Rate 18 03/19/19 14:53 Blood Pressure 182/66 H 03/19/19 14:53 Pulse Oximetry 99 03/19/19 14:53 GENERAL: Well-appearing, well-nourished and in no acute distress. HEENT: Head atraumatic,EOMI, pupils reactive, face symmetric, moist mucous membranes CARDIOVASCULAR: Regular rate and rhythm without murmurs, rubs or gallops. RESPIRATORY: Breath sounds equal bilaterally, no wheezes rales or rhonchi. ABDOMEN: Soft, nontender. Normoactive bowel sounds all 4 quadrants. No guarding or rebound. EXTREMITIES: Normal range of motion, no clubbing or edema. Neurovascularly intact NEUROLOGICAL: Alert and oriented x4.Normal gait and speech. Cranial nerves II through XII grossly intact. Good [id number], good [id number], strength equal bilaterally, no dysarthria or aphasia, sensation in tact to soft touch bilaterally, no visual changes, no facial droop SKIN: Warm, dry, no laceration, no petechiae, no rashes or lesions. Scores HEART Score Heart Score history: Slightly Suspicious Heart Score EKG: Normal Heart Score Age: > or = 65 years old Heart Score risk factors: 1-2 risk factors Heart Score troponin: < or = to normal limit Heart Score Total: 3 NIH Stroke Scale Level of Conciousness: Alert, keenly responsive Ask month/age: Answers both questions correctly. Open/close eyes, close hand: Performs both tasks correctly Best gaze horizontal: Normal Visual zimmerman: No visual loss Facial palsy: Normal symetrical movement Left arm drift: No drift for full 10 sec Right arm drift: No drift for full 10 sec Left leg drift: No drift for full 10 sec Right leg drift: No drift for full 10 sec Limb ataxia: Absent Sensory on face/arms/legs: Normal, no sensory loss Best language: No aphasia, normal Dysarthria: Normal Extinction or inattention: No abnormality Total NIH Stroke scale score: 0 Course Orders Ordered: ED Orders 03/19/19 14:39 EKG-12 Lead Routine 03/19/19 14:51 CT head/brain wo con Stat 03/19/19 14:58 Comprehensive Metabolic Panel Stat Partial Thromboplastin Time Stat Prothrombin Time INR Stat Troponin & CK Cardiac Panel Stat 03/19/19 15:09 Urine Culture Stat Urine Drug Screen, Rapid Stat Urine Microscopic Stat 03/19/19 15:14 Complete Blood Count AUTO DIFF Stat 03/19/19 17:10 Troponin I Stat 03/19/19 18:03 XR chest 1V Stat Vital Signs - 8 hr 03/19/19 14:53 03/19/19 15:47 03/19/19 16:49 Temperature 97.6 F Pulse Rate 57 L 55 L 53 L Respiratory Rate 18 12 15 Blood Pressure 182/66 H Blood Pressure [Right Arm] 159/59 H 150/63 H Pulse Oximetry 99 98 100 MDM - Neuro Symptoms/Deficit Lab Data Attestation: I reviewed the patient's lab results. Result diagrams: 03/19/19 15:14 03/19/19 14:58 Lab Results 03/19/19 03/19/19 03/19/19 Range/Units 14:58 14:58 15:09 WBC (4.5-11.0) X10^3/uL RBC (4.0-5.2) X10^6/uL Hgb (12.0-16.0) g/dL Hct (36-46) % MCV (80-100) fL MCH (26-34) PG MCHC (30-36) % RDW (11.6-14.8) % Plt Count (150-400) X10^3/uL Neut % (Auto) (50-75) % Lymph % (Auto) (25-40) % [place] % (Auto) (3-14) % Eos % (Auto) (2-4) % Baso % (Auto) (0-2) % Neut # (Auto) (6472-7200) /uL Lymph # (Auto) (8200-1524) /uL [place] # (Auto) (0-900) /uL Eos # (Auto) (0-450) /uL Baso # (Auto) (0-100) /uL PT 10.8 (10.1-12.7) SECONDS INR 0.9 (0.9-1.3) APTT 28 D (26.4-36.2) SECONDS Sodium 128 L (137-145) mmol/L Potassium 5.0 (3.4-5.1) mmol/L Chloride 94 L (98-107) mmol/L Carbon Dioxide 23 (22-32) mmol/L BUN 17 (7-17) mg/dL Creatinine 0.60 (0.52-1.04) mg/dL Estimated GFR > 60.0 (>60) mL/min BUN/Creatinine Ratio 28.3 H (6-22) Glucose 95 (80-110) mg/dL Calcium 9.1 (8.4-10.2) mg/dL Total Bilirubin 0.9 (0.2-1.3) mg/dL AST 41 H (14-36) IU/L ALT 20 (9-52) IU/L Alkaline Phosphatase 49 (38-126) U/L Total Creatine Kinase 110 (30-135) U/L CK-MB (CK-2) 0.91 (<2.37) ng/mL CK-MB (CK-2) Rel Index 0.8 L (1.5-5.0) % Troponin I < 0.012 (0.01-0.034) ng/mL Total Protein 7.7 (6.3-8.2) g/dL Albumin 4.5 (3.5-5.0) g/dL Globulin 3.2 (1.7-4.1) g/dL Albumin/Globulin Ratio 1.4 (1.0-2.8) Urine RBC (0-5/HPF) Urine WBC (0-5/HPF) Ur Squamous Epith Cells (0-5/HPF) Urine Bacteria (None) Ur Culture Indicated? Micro UA Comment Urine Opiates Screen Negative (Negative) Ur Oxycodone Screen Negative (Negative) Urine Methadone Screen Negative (Negative) Ur Barbiturates Screen Negative (Negative) U Tricyclic Antidepress Negative (Negative) Ur Phencyclidine Scrn Negative (Negative) Ur Amphetamines Screen Negative (Negative) U Methamphetamines Scrn Negative (Negative) Ur MDMA Scrn (Ecstasy) Negative (Negative) U Benzodiazepines Scrn Negative (Negative) Urine Cocaine Screen Negative (Negative) U Marijuana (THC) Screen Negative (Negative) 03/19/19 03/19/19 03/19/19 Range/Units 15:09 15:14 17:10 WBC 6.5 (4.5-11.0) X10^3/uL RBC 4.02 (4.0-5.2) X10^6/uL Hgb 13.3 (12.0-16.0) g/dL Hct 39.2 (36-46) % MCV 97.4 (80-100) fL MCH 33.1 (26-34) PG MCHC 33.9 (30-36) % RDW 12.7 (11.6-14.8) % Plt Count 230 (150-400) X10^3/uL Neut % (Auto) 57.8 (50-75) % Lymph % (Auto) 28.3 (25-40) % [place] % (Auto) 12.4 (3-14) % Eos % (Auto) 0.5 L (2-4) % Baso % (Auto) 1.0 (0-2) % Neut # (Auto) 3700 (9822-9998) /uL Lymph # (Auto) 1800 (3784-5744) /uL [place] # (Auto) 800 (0-900) /uL Eos # (Auto) 0 (0-450) /uL Baso # (Auto) 100 (0-100) /uL PT (10.1-12.7) SECONDS INR (0.9-1.3) APTT (26.4-36.2) SECONDS Sodium (137-145) mmol/L Potassium (3.4-5.1) mmol/L Chloride (98-107) mmol/L Carbon Dioxide (22-32) mmol/L BUN (7-17) mg/dL Creatinine (0.52-1.04) mg/dL Estimated GFR (>60) mL/min BUN/Creatinine Ratio (6-22) Glucose (80-110) mg/dL Calcium (8.4-10.2) mg/dL Total Bilirubin (0.2-1.3) mg/dL AST (14-36) IU/L ALT (9-52) IU/L Alkaline Phosphatase (38-126) U/L Total Creatine Kinase (30-135) U/L CK-MB (CK-2) (<2.37) ng/mL CK-MB (CK-2) Rel Index (1.5-5.0) % Troponin I < 0.012 (0.01-0.034) ng/mL Total Protein (6.3-8.2) g/dL Albumin (3.5-5.0) g/dL Globulin (1.7-4.1) g/dL Albumin/Globulin Ratio (1.0-2.8) Urine RBC 0-1/hpf (0-5/HPF) Urine WBC 0-1/hpf (0-5/HPF) Ur Squamous Epith Cells 1-5 /hpf (0-5/HPF) Urine Bacteria None seen (None) Ur Culture Indicated? Specimen cultured Micro UA Comment Urine Opiates Screen (Negative) Ur Oxycodone Screen (Negative) Urine Methadone Screen (Negative) Ur Barbiturates Screen (Negative) U Tricyclic Antidepress (Negative) Ur Phencyclidine Scrn (Negative) Ur Amphetamines Screen (Negative) U Methamphetamines Scrn (Negative) Ur MDMA Scrn (Ecstasy) (Negative) U Benzodiazepines Scrn (Negative) Urine Cocaine Screen (Negative) U Marijuana (THC) Screen (Negative) Urine Dip Bedside Urine Glucose Negative Bedside Urine Bilirubin - Negative Bedside Urine Ketone - Negative Urine Specific [place] 1.010 Bedside Urine Occult Blood +/- Bedside Urine pH 7.0 Bedside Urine Protein - Negative Bedside Urine Urobilinogen - Negative Bedside Urine Nitrite - Negative Bedside Urine Leukocytes + [address] scan - head: Radiologist's impression: PROCEDURE: CT HEAD/BRAIN WO CON INDICATIONS: blurry vision now resolved TECHNIQUE: Noncontrast 4.5 mm thick angled axial sections acquired from the foramen magnum to the vertex, with coronal and sagittal reformats. For radiation dose reduction, the following was used: automated exposure control, adjustment of mA and/or kV according to patient size. COMPARISON: [facility], MR, MR STROKE, 03/10/2019, 7:01. [facility], CT, CT HEAD/BRAIN WO CON, 03/09/2019, 13:36. FINDINGS: Image quality: Excellent. CSF spaces: Basal cisterns are patent. No extra-axial fluid collections. The ventricles are symmetric in size and shape. Brain: No intracranial bleeds or masses. There is cerebral volume loss for age, with resultant ventricular and sulcal prominence. There are periventricular and deep white matter chronic small vessel ischemic changes. There is intracranial internal carotid artery and vertebral artery atherosclerosis. Skull and face: Calvarium and visualized facial bones appear intact, without suspicious lesions. Sinuses: Visualized sinuses and mastoids are clear. IMPRESSION: No acute intracranial disease process. Dictated by: Sarah Kang MD, PhD on 03/19/2019 at 15:09 Chest x-ray: Radiologist's impression: PROCEDURE: XR CHEST 1V INDICATIONS: chest pain TECHNIQUE: One view of the chest was acquired. COMPARISON: [facility], CR, XR CHEST 1V, 03/09/2019, 13:47. FINDINGS: Surgical changes and devices: None. Lungs and pleura: Lungs are clear. No pleural effusions or pneumothorax. Mediastinum: Mediastinal contours appear normal. Heart size is normal. Bones and chest wall: No suspicious bony lesions. Overlying soft tissues appear unremarkable. IMPRESSION: Stable examination of the chest. No acute cardiopulmonary abnormalities. Dictated by: Brett Salmeron M.D. on 03/19/2019 at 18:51 ECG Data Attestation: I personally reviewed and interpreted this ECG as follows: Prior ECG tracings: available for review Interpretation: Normal sinus rhythm rate [address] changes no T-wave inversions similar to previous EKGs. MDM Narrative Medical decision making narrative: Patient's symptoms completely resolved. She had blurriness of 1 eye not blackening. Her medications were adjusted in the hospital she did not seem to tolerate that her PCP return back to what they were. Cardiology referral seems to be in process. She only had some mild chest discomfort, 2-troponins. She has lost stress going on in life her is ill. She has no further chest pain or vision changes during her stay in the emergency department. At this time I feel she can follow up outpatient. Discharge Plan Departure Patient Disposition: Home Clinical Impression: Atypical chest pain Discharge Date/Time: 03/19/19 18:24 Interventions: ED Discharge Assessment Last Done: 03/19/19 18:23 Instructions: DI for Transient Ischemic Attack, DI for Atypical Chest Pain Activity Restrictions/Additional Instructions: *You have been diagnosed with atypical chest pain and blurry vision *What to do: At this time he had full TIA and stroke workup last week. It is imperative that you have your blood pressure under control. I recommend seeing and following up with Cardiology which is being arranged with her PCP. *Continue to take medications as directed *Follow up with your primary care provider in 2-3 days *Return to ER if you should have increasing chest pain, weakness, vision changes speech difficulty extremity weakness or any new, worsening or concerning symptoms Prescriptions: No Action [ACTIVE FOLATE] tablet 200 mcg PO DAILY Qty: 0 RF: 0 atenolol 100 mg tablet 100 mg PO DAILY Qty: 90 RF: 3 levothyroxine [Synthroid] 150 mcg Tablet 150 mcg PO DAILY RF: 0 losartan 100 mg Tablet 100 mg PO DAILY RF: 0 amlodipine [Norvasc] 5 mg Tablet 5 mg PO DAILY Qty: 30 RF: 0 aspirin 81 mg Tablet,Delayed Release (Dr/Ec) 81 mg PO DAILY Qty: 30 RF: 0 Referrals: Catalina Guzman ARNP [Primary Care Provider] -
[2019-03-19 15:15] LABS: INR 0.9 (0.9-1.3); Prothrombin Time 10.8 SECONDS (10.1-12.7)
[2019-03-19 15:17] LABS: PTT Partial Thromboplastin Tim 28 SECONDS (26.4-36.2)
[2019-03-19 15:18] LABS: Bacteria Urine None Seen
[2019-03-19 15:19] LABS: Alanine Aminotransferase 20 IU/L (9-52); Albumin 4.5 g/dL (3.5-5.0); Albumin Globulin Ratio 1.4 (1.0-2.8); Alkaline Phosphatase 49 U/L (38-126); Aspartate Aminotransferase 41 IU/L (14-36); BUN Creatinine Ratio 28.3 (6-22); Bilirubin Total 0.9 mg/dL (0.2-1.3); Blood Urea Nitrogen 17 mg/dL (7-17); Calcium 9.1 mg/dL (8.4-10.2); Carbon Dioxide 23 mmol/L (22-32); Chloride 94 mmol/L (98-107); Creatine Kinase 110 U/L (30-135); Estimated Glomerular Filt Rate > 60.0 mL/min (>60); Globulin 3.2 g/dL (1.7-4.1); Glucose 95 mg/dL (80-110); Sodium 128 mmol/L (137-145); Total Protein 7.7 g/dL (6.3-8.2)
[2019-03-19 15:22] LABS: HEMOLYSIS 68 (0-50)
[2019-03-19 15:26] LABS: Add Manual Diff / Slide Review NO; Basophils Absolute Auto 100 /uL (0-100); Eosinophils Absolute Auto 0 /uL (0-450); Eosinophils Percent Auto 0.5 % (2-4); Hematocrit 39.2 % (36-46); Hemoglobin 13.3 g/dL (12.0-16.0); Lymphocytes Absolute Auto 1800 /uL (1100-4500); Lymphocytes Percent Auto 28.3 % (25-40); Mean Corpuscular HGB Conc 33.9 % (30-36); Mean Corpuscular Hemoglobin 33.1 PG (26-34); Mean Corpuscular Volume 97.4 fL (80-100); Monocytes Absolute Auto 800 /uL (0-900); Monocytes Percent Auto 12.4 % (3-14); Neutrophils Absolute Auto 3700 /uL (1500-7000); Neutrophils Percent Auto 57.8 % (50-75); Platelet Count 230 X10^3/uL (150-400); Red Blood Cell Count 4.02 X10^6/uL (4.0-5.2); Red Cell Distribution Width 12.7 % (11.6-14.8); White Blood Cell Count 6.5 X10^3/uL (4.5-11.0)
[2019-03-19 15:27] LABS: Urine Amphetamines Negative (Negative); Urine Barbiturates Negative (Negative); Urine Benzodiazepines Negative (Negative); Urine Cocaine Negative (Negative); Urine MDMA Negative (Negative); Urine Methadone Negative (Negative); Urine Methamphetamines Negative (Negative); Urine Morphine/Opi cutoff 2000 Negative (Negative); Urine Oxycodone Negative (Negative); Urine Phencyclidine Negative (Negative); Urine Tetrahydrocannabinol Negative (Negative); Urine Tricyclic Antidepressant Negative (Negative)
[2019-03-19 15:30] LABS: Troponin I < 0.012 ng/mL (0.01-0.034)
[2019-03-19 15:34] LABS: CKMB % Relative Index 0.8 % (1.5-5.0); Creatine Kinase MB 0.91 ng/mL (<2.37)
[2019-03-19 15:41] LABS: RBC Urine 0-1/HPF (0-5/HPF); Squamous Epithelial Cell Urine 1-5 /HPF (0-5/HPF); WBC Urine 0-1/HPF (0-5/HPF)
[2019-03-19 15:42] LABS: Culture Indicated Urine Specimen Cultured
[2019-03-19 15:47] VITALS: BP 159/59; PULSE 55; RESP 12; O2SAT 98
[2019-03-19 16:49] VITALS: BP 150/63; PULSE 53; RESP 15; O2SAT 100
[2019-03-19 17:54] LABS: Troponin I < 0.012 ng/mL (0.01-0.034)
--- NOTE | 2019-03-19 18:03 | DI.RAD.S_ITS ---
PROCEDURE: XR CHEST 1V INDICATIONS: chest pain TECHNIQUE: One view of the chest was acquired. COMPARISON: [facility], CR, XR CHEST 1V, 03/09/2019, 13:47. FINDINGS: Surgical changes and devices: None. Lungs and pleura: Lungs are clear. No pleural effusions or pneumothorax. Mediastinum: Mediastinal contours appear normal. Heart size is normal. Bones and chest wall: No suspicious bony lesions. Overlying soft tissues appear unremarkable. IMPRESSION: Stable examination of the chest. No acute cardiopulmonary abnormalities. Dictated by: Brett Salmeron M.D. on 03/19/2019 at 18:51 Approved by: Brett Salmeron M.D. on 03/19/2019 at 18:52
[2019-03-19 18:23] VITALS: BP 175/58; PULSE 58; RESP 16; O2SAT 100
== END 2019-03-19 18:24 | disposition home or self-care (01) ==
PROVIDERS: Emergency Provider Emergency Medicine; Family Provider Physical Medicine & Rehabilitation Pain Medicine; PCP Nurse Practitioner
DX: R07.89 Other chest pain (principal); Z79.82 Long term (current) use of aspirin; Z86.73 Personal history of transient ischemic attack (TIA), and cerebral infarction without residual deficits
CPT/HCPCS: 36415; 36591; 70450; 71045; 80053; 80305; 81003; 81015; 82550; 82553; 84484; 85025; 85610; 85730; 87086; 93005; 99283; 99285

== ENCOUNTER → 2019-04-03 13:38 | Outpatient (CLI) | payer MEDICARE, OTHER, SELFPAY ==
[2019-03-09 16:54] VITALS: BMI 25.4
--- NOTE | 2019-04-03 | DI.MRI.S_ITS ---
PROCEDURE: MR SHOULDER RT WO CON INDICATIONS: PAIN IN RIGHT SHOULDER WITH DECREASED RANGE OF MOTION TECHNIQUE: Noncontrast oblique coronal T2 fast spin echo with fat saturation, oblique sagittal T1 spin echo and T2 fast spin echo with fat saturation, axial T1 spin echo and T2 fast spin echo with fat saturation through the shoulder. COMPARISON: None. FINDINGS: Image quality: Excellent. Rotator cuff: There is a full-thickness tear of the mid supraspinatus tendon just proximal to the humeral insertion site, with roughly 4 mm of retraction, and measuring roughly 10 mm anteroposterior. There is moderate grade partial-thickness extension of this tear into the anterior and posterior aspects of the supraspinatus tendon. There is underlying moderate diffuse T2 signal elevation within the supraspinatus, indicating tendinopathy. Mild T2 signal elevation within the infraspinatus is present, indicating tendinopathy, without tear. Subscapularis and teres minor tendons are intact. Bones and bursae: No bone marrow contusions or fractures. Moderate acromioclavicular joint degeneration. The acromion demonstrates conventional anatomy, without an os acromiale. No pathologic subacromial-subdeltoid or subcoracoid bursal fluid is present. Capsule and soft tissues: There is diffuse degenerative fraying of the glenoid labrum. The long head of the biceps tendon demonstrates normal location and morphology. The rotator interval appears normal, without fibrosis. The coracohumeral ligament is normal in thickness. IMPRESSION: 1. Supraspinatus and infraspinatus tendinopathy, with superimposed full-thickness and partial-thickness tearing of the supraspinatus as described above. 2. Acromioclavicular joint osteoarthritis. 3. Diffuse degenerative glenoid labral fraying. Dictated by: Maurice Serrato M.D. on 04/05/2019 at 10:05 Approved by: Maurice Serrato M.D. on 04/05/2019 at 10:13
== END ==
PROVIDERS: Family Provider Physical Medicine & Rehabilitation Pain Medicine; PCP Nurse Practitioner; Referring Provider Naturopath; Visit Provider Orthopaedic Surgery
DX: M25.511 Pain in right shoulder (principal); M75.121 Complete rotator cuff tear or rupture of right shoulder, not specified as traumatic; M19.011 Primary osteoarthritis, right shoulder
CPT/HCPCS: 73221

== ENCOUNTER → 2019-05-25 10:06 | Outpatient (CLI) | payer MEDICARE, OTHER, SELFPAY ==
[2019-03-09 16:54] VITALS: BMI 25.4
--- NOTE | 2019-05-25 | DI.MG.S_ITS ---
UNILATERAL RIGHT DIGITAL DIAGNOSTIC MAMMOGRAM 3D/2D SHORT-TERM FOLLOW-UP: 05/25/2019 CLINICAL: Patient returns for a 6 month follow up of the right breast. Comparison is made to exams dated: 12/09/2018 mammogram, 11/21/2018 mammogram - [facility], and 12/11/2016 mammogram - [facility]. There are scattered fibroglandular elements in right breast. There are stable grouped punctate calcifications in the right breast at 11 o'clock middle depth. No other significant masses or calcifications are seen in the breast. IMPRESSION: PROBABLY BENIGN The stable grouped punctate calcifications in the right breast are probably benign. A follow-up mammogram in 6 months is recommended to demonstrate stability. This exam was interpreted at Station ID: [id number]. NOTE: For mammograms, a report in lay terms will be sent to the patient. Approximately 15% of breast malignancies will not be visualized mammographically. In the management of a palpable breast mass, a negative mammogram must not discourage biopsy of a clinically suspicious lesion. SUMMARY: The patient will be due for her bilateral mammogram at this time. Electronically Signed By: Tiarra Rosario M.D. lk/:05/25/2019 10:36:51 copy to: Catalina Guzman letter sent: Followup Recommended ACR BI-RADS Category 3: Probably benign [id number]
== END ==
PROVIDERS: Family Provider Nurse Practitioner; PCP Nurse Practitioner; Visit Provider Naturopath
DX: R92.8 Other abnormal and inconclusive findings on diagnostic imaging of breast (principal); R92.1 Mammographic calcification found on diagnostic imaging of breast
CPT/HCPCS: 77065; G0279

== ENCOUNTER → 2019-09-28 10:03 | Outpatient (CLI) | payer MEDICARE, OTHER, SELFPAY ==
[2019-03-09 16:54] VITALS: BMI 25.4
[2019-09-28 12:35] LABS: BUN Creatinine Ratio 17.1 (6-22); Blood Urea Nitrogen 12 mg/dL (7-17); Calcium 9.5 mg/dL (8.4-10.2); Carbon Dioxide 27 mmol/L (22-32); Chloride 94 mmol/L (98-107); Estimated Glomerular Filt Rate > 60.0 mL/min (>60); Glucose 100 mg/dL (80-110); HEMOLYSIS < 15 (0-50); Potassium 4.5 mmol/L (3.4-5.1); Sodium 130 mmol/L (137-145)
== END ==
PROVIDERS: Family Provider Nurse Practitioner; PCP Nurse Practitioner; Referring Provider Nurse Practitioner; Visit Provider Nurse Practitioner
DX: G45.9 Transient cerebral ischemic attack, unspecified (principal); I10 Essential (primary) hypertension
CPT/HCPCS: 36415; 80048

== ENCOUNTER → 2019-10-01 12:54 | Outpatient (CLI) | payer MEDICARE, OTHER, SELFPAY ==
[2019-03-09 16:54] VITALS: BMI 25.4
[2019-10-01 13:53] LABS: Cholesterol 189 mg/dL (140-199); HDL Cholesterol 99 mg/dL (40-60); LDL Cholesterol Calculated 79 mg/dL (<100); Triglycerides 57 mg/dL (35-150)
== END ==
PROVIDERS: Family Provider Nurse Practitioner; PCP Nurse Practitioner; Referring Provider Hospitalist; Visit Provider Hospitalist
DX: I10 Essential (primary) hypertension (principal); G45.9 Transient cerebral ischemic attack, unspecified
CPT/HCPCS: 36415; 80061

== ENCOUNTER → 2020-01-07 09:48 | Outpatient (CLI) | payer MEDICARE, OTHER, SELFPAY ==
[2019-03-09 16:54] VITALS: BMI 25.4
--- NOTE | 2020-01-07 09:50 | DI.MG.S_ITS ---
BILATERAL DIGITAL DIAGNOSTIC MAMMOGRAM 3D/2D: 01/07/2020 CLINICAL: Short follow up, due bilateral. Comparison is made to exams dated: 05/25/2019 mammogram, 12/09/2018 mammogram, 11/21/2018 mammogram - [facility], and 12/11/2016 mammogram - [facility]. There are scattered fibroglandular elements in both breasts. There are stable grouped punctate calcifications in the right breast at 11 o'clock posterior depth. No other significant masses, calcifications, or other findings are seen in either breast. IMPRESSION: PROBABLY BENIGN The stable grouped punctate calcifications in the right breast are probably benign. A follow-up right mammogram in 6 months is recommended to demonstrate continued stability. Findings and recommendations were conveyed to the patient at time of exam. This exam was interpreted at Station ID: [id number]. NOTE: For mammograms, a report in lay terms will be sent to the patient. Approximately 15% of breast malignancies will not be visualized mammographically. In the management of a palpable breast mass, a negative mammogram must not discourage biopsy of a clinically suspicious lesion. Electronically Signed By: Claudia babcock/:01/07/2020 10:29:05 copy to: CECILIA REYES letter sent: Followup Recommended ACR BI-RADS Category 3: Probably benign [id number]
== END ==
PROVIDERS: Family Provider Nurse Practitioner; PCP Nurse Practitioner; Referring Provider Nurse Practitioner; Visit Provider Nurse Practitioner
DX: R92.8 Other abnormal and inconclusive findings on diagnostic imaging of breast (principal); R92.1 Mammographic calcification found on diagnostic imaging of breast
CPT/HCPCS: 77066; G0279

== ENCOUNTER → 2020-06-22 15:05 | Outpatient (CLI) | payer MEDICARE, OTHER, SELFPAY ==
[2019-03-09 16:54] VITALS: BMI 25.4
--- NOTE | 2020-06-22 15:07 | DI.MG.S_ITS ---
UNILATERAL RIGHT DIGITAL DIAGNOSTIC MAMMOGRAM 3D/2D SHORT-TERM FOLLOW-UP: 06/22/2020 CLINICAL: Patient returns for a 6 month follow up of the right breast. Comparison is made to exams dated: 01/07/2020 mammogram, 05/25/2019 mammogram, 12/09/2018 mammogram, 11/21/2018 mammogram - [facility], and 12/11/2016 mammogram - [facility]. There are scattered fibroglandular elements in right breast. There are stable grouped punctate calcifications in the right breast at 11 o'clock posterior depth. No other significant masses or calcifications are seen in the breast. IMPRESSION: PROBABLY BENIGN Stable grouped punctate calcifications in the right breast are probably benign. A follow-up mammogram in 6 months is recommended to demonstrate stability. Exam findings were conveyed to the patient. This exam was interpreted at Station ID: [id number]. NOTE: For mammograms, a report in lay terms will be sent to the patient. Approximately 15% of breast malignancies will not be visualized mammographically. In the management of a palpable breast mass, a negative mammogram must not discourage biopsy of a clinically suspicious lesion. Electronically Signed By: Marcin Ibarra M.D. slc/:06/22/2020 16:02:12 copy to: CECILIA REYES letter sent: Followup Recommended ACR BI-RADS Category 3: Probably benign [id number]
== END ==
PROVIDERS: Family Provider Nurse Practitioner; PCP Nurse Practitioner; Referring Provider Nurse Practitioner; Visit Provider Nurse Practitioner
DX: R92.8 Other abnormal and inconclusive findings on diagnostic imaging of breast (principal); R92.1 Mammographic calcification found on diagnostic imaging of breast
CPT/HCPCS: 77065; G0279

== ENCOUNTER → 2020-12-11 11:48 | Outpatient (CLI) | payer MEDICARE, OTHER, SELFPAY ==
[2019-03-09 16:54] VITALS: BMI 25.4
--- NOTE | 2020-12-11 | DI.MG.S_ITS ---
BILATERAL DIGITAL DIAGNOSTIC MAMMOGRAM 3D/2D: 12/11/2020 CLINICAL: Short follow up, due bilaterally. Family history of breast cancer. Comparison is made to exams dated: 06/22/2020 mammogram, 01/07/2020 mammogram, 05/25/2019 mammogram, 12/09/2018 mammogram, and 11/21/2018 mammogram - [facility]. There are scattered fibroglandular elements in both breasts. There are benign grouped punctate calcifications in the right breast at 11 o'clock posterior depth. These have been stable for 2 years. No other significant masses, calcifications, or other findings are seen in either breast. Mammograms are otherwise stable. 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 There is no mammographic evidence of malignancy. Return to annual mammogram screening schedule is recommended. Findings and recommendations were conveyed to the patient at time of exam. This exam was interpreted at Station ID: [id number]. NOTE: For mammograms, a report in lay terms will be sent to the patient. Approximately 15% of breast malignancies will not be visualized mammographically. In the management of a palpable breast mass, a negative mammogram must not discourage biopsy of a clinically suspicious lesion. Electronically Signed By: Claudia babcock/:12/11/2020 12:40:08 copy to: CECILIA REYES letter sent: Normal Exam ACR BI-RADS Category 2: Benign Finding(s) [id number]
== END ==
PROVIDERS: Family Provider Nurse Practitioner; PCP Nurse Practitioner; Referring Provider Nurse Practitioner; Visit Provider Nurse Practitioner
DX: R92.8 Other abnormal and inconclusive findings on diagnostic imaging of breast (principal); R92.1 Mammographic calcification found on diagnostic imaging of breast; Z80.3 Family history of malignant neoplasm of breast
CPT/HCPCS: 77066; G0279

== ENCOUNTER → 2020-12-19 12:55 | Outpatient (CLI) | payer MEDICARE, OTHER, SELFPAY ==
[2019-03-09 16:54] VITALS: BMI 25.4
[2020-12-19 13:30] LABS: Add Manual Diff / Slide Review NO; Basophils Absolute Auto 100 /uL (0-100); Basophils Percent Auto 0.8 % (0-2); Eosinophils Absolute Auto 0 /uL (0-450); Eosinophils Percent Auto 0.4 % (2-4); Hematocrit 37.5 % (36-46); Hemoglobin 12.9 g/dL (12.0-16.0); Lymphocytes Absolute Auto 1600 /uL (1100-4500); Mean Corpuscular HGB Conc 34.4 % (30-36); Mean Corpuscular Hemoglobin 32.8 PG (26-34); Mean Corpuscular Volume 95.4 fL (80-100); Monocytes Absolute Auto 600 /uL (0-900); Monocytes Percent Auto 9.4 % (3-14); Neutrophils Absolute Auto 4000 /uL (1500-7000); Neutrophils Percent Auto 63.4 % (50-75); Platelet Count 238 X10^3/uL (150-400); Red Blood Cell Count 3.94 X10^6/uL (4.0-5.2); Red Cell Distribution Width 12.7 % (11.6-14.8); White Blood Cell Count 6.3 X10^3/uL (4.5-11.0)
[2020-12-19 13:40] LABS: HEMOLYSIS < 15 (0-50); Iron 123 ug/dL (37-170)
[2020-12-19 13:43] LABS: C-Reactive Protein Quant < 0.5 mg/dL (<1.0)
[2020-12-19 13:52] LABS: Percent Iron Saturation 44 % (15-50); Total Iron Binding Capacity 281 ug/dL (265-497); Transferrin 242 mg/dL (206-381)
[2020-12-19 13:57] LABS: Erythrocyte Sedimentation Rate 36 MM/HR (0-20)
[2020-12-19 13:59] LABS: Free T3, Triiodothyronine Free 3.39 pg/mL (2.77-5.27); Free T4, Direct Thyroxine 1.46 ng/dL (0.78-2.19)
[2020-12-19 14:00] LABS: Rheumatoid Factor < 8.6 IU/mL (<12.0)
[2020-12-19 14:13] LABS: Thyroid Stimulating Hormone 0.483 uIU/mL (0.47-4.68)
[2020-12-19 14:17] LABS: Ferritin 109 ng/mL (11-264)
[2020-12-20 06:35] LABS: Thyroid Peroxidase Antibodies 80 IU/mL (0-34)
== END ==
PROVIDERS: Family Provider Nurse Practitioner; PCP Nurse Practitioner; Referring Provider Nurse Practitioner; Visit Provider Nurse Practitioner
DX: L64.8 Other androgenic alopecia (principal); E03.9 Hypothyroidism, unspecified; L65.0 Telogen effluvium; I10 Essential (primary) hypertension; L65.8 Other specified nonscarring hair loss; E06.3 Autoimmune thyroiditis; F48.8 Other specified nonpsychotic mental disorders; M25.50 Pain in unspecified joint; M35.9 Systemic involvement of connective tissue, unspecified
CPT/HCPCS: 36415; 82728; 83540; 83550; 84439; 84443; 84481; 85025; 85651; 86140; 86376; 86430

== ENCOUNTER → 2021-03-12 09:32 | Outpatient (CLI) | payer MEDICARE, OTHER, SELFPAY ==
[2019-03-09 16:54] VITALS: BMI 25.4
--- NOTE | 2021-03-12 | DI.MRI.S_ITS ---
PROCEDURE: MR LUMBAR SPINE WO CON INDICATIONS: Spinal stenosis, lumbar region,LFT KNEE MENSC TEAR TECHNIQUE: Noncontrast sagittal T1 spin echo and T2 fast echo, sagittal STIR, axial T1 and T2 fast spin echo through the lumbar spine. In cases with scoliosis, additional coronal T2 fast spin echo may be performed. COMPARISON: [facility], CR, XR LUMBAR SPINE WITH OLBIQUES PLUS FLEXION EXTENSION, 02/26/2021, 15:05. FINDINGS: Image quality: Excellent. Alignment and Curvature: There is minimal retrolisthesis of L2 on L3 and minimal anterolisthesis of L3 on L4. Bone Marrow: Marrow is of normal overall signal. No acute vertebral body compression fractures. Chronic appearing mild anterior wedge deformity involving superior endplate of T12 is seen. Spinal Cord: Conus medullaris terminates at the T12-L1 level. Visualized cord demonstrates normal signal and size. Paraspinous Soft Tissues: No paravertebral masses. T12-L1: Normal appearance. L1-L2: Normal appearance. L2-L3: Mild degenerative endplate changes and loss of disc signal. Mild diffuse disc bulge and bilateral facet arthrosis is seen without significant central canal stenosis or neural foraminal narrowing. L3-L4: Degenerative endplate changes, decreased disc height and loss of disc signal is seen. Broad-based disc bulge and bilateral facet arthrosis is seen with hypertrophy of ligamentum flavum. Mild central canal stenosis is noted. There is mild right-sided neural foraminal narrowing. L4-L5: There is near complete loss of disc height with degenerative endplate changes. Broad-based disc bulge and bilateral facet arthrosis is seen with hypertrophy of ligamentum flavum. There is mild to moderate central canal stenosis and right worse than left bilateral neural foraminal narrowing. L5-S1: Loss of disc signal and mild degenerative endplate changes are seen. There is mild diffuse disc bulge and bilateral facet arthrosis with mild central canal stenosis, no significant neural foraminal narrowing. IMPRESSION: 1. Degenerative disc disease and bilateral facet arthrosis at L2-3 through L5-S1 levels causing [id number] central canal stenosis and bilateral neural foraminal narrowing as described above most prominent at L4-5 level. 2. Minimal retrolisthesis at L2-3 level and grade 1 anterolisthesis at L3-4 level as above. No marrow edema. No acute compression fracture. Very mild chronic appearing superior endplate compression deformity at T12 level. Dictated by: Ayaan Reyes M.D. on 03/12/2021 at 11:45 Approved by: Ayaan Reyes M.D. on 03/12/2021 at 13:20
--- NOTE | 2021-03-12 | DI.MRI.S_ITS ---
PROCEDURE: MR KNEE LT WO CON INDICATIONS: Spinal stenosis, lumbar region,LFT KNEE MENSC TEAR TECHNIQUE: Noncontrast sagittal PD fast spin echo and T2 fast spin echo with fat saturation, sagittal 3-D FLASH with fat saturation; coronal T1 spin echo and PD fast spin echo with fat saturation, and axial PD fast spin echo with fat saturation through the knee. COMPARISON: None. FINDINGS: Menisci: Medial meniscus: Intact. Lateral meniscus: Horizontally oriented tear of the body and anterior horn with abnormal signal extends to the free margin as well as the inferior articular surface. There is near complete extrusion. Cruciate ligaments: Anterior cruciate ligament: Intact. Posterior cruciate ligament: Intact. Medial structures: The medial collateral ligament: Intact. Semimembranosus tendon: Intact. Visualized pes anserinus tendons: Intact. Bursal fluid: none. Lateral structures: The lateral collateral ligament demonstrates thickening and intrasubstance signal change in keeping with low grade sprain, statistically chronic, although technically age indeterminate. Biceps femoris tendon appears intact. Popliteus tendon grossly unremarkable. Iliotibial band appears intact. Anterior structures: Quadriceps tendon: Intact. Medial patellofemoral ligament: Intact. Lateral patellofemoral ligament: Intact. Patellar tendon: Mild tendinopathy. Anterior soft tissues: Prepatellar and superficial infrapatellar subcutaneous edema/fluid. Deep infrapatellar region: Mild fluid is present raising possibility of low-grade bursitis. Bones and cartilage: Marrow: No focal marrow contusion or discrete low signal fracture line. Medial compartment: Diffuse surface fraying of the femoral and tibial cartilage. Lateral compartment: Areas of near full-thickness loss of the femoral and tibial cartilage. Patellofemoral compartment: Diffuse surface fraying of the cartilage overlying the lateral patellar facet and central femoral trochlea. Joint space: Effusion: Small joint effusion. Popliteal fossa: No Carvajal's cyst. Loose bodies: None. IMPRESSION: Lateral meniscal tear involving the body and anterior horn with near complete extrusion. Degenerative joint disease most pronounced in the lateral compartment as above. Small joint effusion Mild patellar tendinopathy Dictated by: Arnold Claudio M.D. on 03/12/2021 at 11:30 Approved by: Arnold Claudio M.D. on 03/12/2021 at 11:37
== END ==
PROVIDERS: Family Provider Nurse Practitioner; PCP Nurse Practitioner; Referring Provider Orthopaedic Surgery; Visit Provider Orthopaedic Surgery
DX: M48.062 Spinal stenosis, lumbar region with neurogenic claudication (principal); M48.07 Spinal stenosis, lumbosacral region; M25.462 Effusion, left knee; M51.36 Other intervertebral disc degeneration, lumbar region; M51.37 Other intervertebral disc degeneration, lumbosacral region; M47.816 Spondylosis without myelopathy or radiculopathy, lumbar region; M47.817 Spondylosis without myelopathy or radiculopathy, lumbosacral region; S83.282A Other tear of lateral meniscus, current injury, left knee, initial encounter; M17.12 Unilateral primary osteoarthritis, left knee
CPT/HCPCS: 72148; 73721

== ENCOUNTER → 2021-04-06 15:54 | Outpatient (CLI) | payer MEDICARE, OTHER, SELFPAY ==
[2019-03-09 16:54] VITALS: BMI 25.4
[2021-04-06 16:42] LABS: Alanine Aminotransferase 19 IU/L (<35); Albumin 4.3 g/dL (3.5-5.0); Albumin Globulin Ratio 1.6 (1.0-2.8); Alkaline Phosphatase 65 U/L (38-126); Aspartate Aminotransferase 28 IU/L (14-36); BUN Creatinine Ratio 30.9 (6-22); Bilirubin Total 0.5 mg/dL (0.2-1.3); Blood Urea Nitrogen 21 mg/dL (7-17); Calcium 9.4 mg/dL (8.4-10.2); Carbon Dioxide 28 mmol/L (22-32); Chloride 99 mmol/L (98-107); Estimated Glomerular Filt Rate > 60.0 mL/min (>60); Globulin 2.7 g/dL (1.7-4.1); Glucose 133 mg/dL (80-110); HEMOLYSIS < 15 (0-50); Potassium 4.7 mmol/L (3.4-5.1); Sodium 133 mmol/L (137-145)
== END ==
PROVIDERS: Family Provider Nurse Practitioner; PCP Nurse Practitioner; Referring Provider Internal Medicine Cardiovascular Disease; Visit Provider Internal Medicine Cardiovascular Disease
DX: I10 Essential (primary) hypertension (principal)
CPT/HCPCS: 36415; 80053

== ENCOUNTER → 2021-05-08 09:12 | Outpatient (CLI) | payer MEDICARE, OTHER, SELFPAY ==
[2019-03-09 16:54] VITALS: BMI 25.4
--- NOTE | 2021-05-08 | DI.US.S_ITS ---
PROCEDURE: US CAROTID DOPPLER BI INDICATIONS: RIGHT CAROTID ARTERY DISEASE TECHNIQUE: Color and pulse Doppler interrogation was performed of both carotid systems, with image documentation and velocity measurements. COMPARISON: None. FINDINGS: Stenosis calculations are based on SRU (Society of Radiologists in Ultrasound) criteria. Right side: Brachial blood pressure: 166/78 mm Hg. Common carotid artery peak systolic velocity: 93 cm/sec. Internal carotid artery peak systolic velocity: 167 cm/sec. Internal carotid artery end diastolic velocity: 25 cm/sec. External carotid artery peak systolic velocity: 217 cm/sec. ICA/CCA peak systolic ratio: 1.8 . Camacho scale imaging description: Mild plaque at the bifurcation. Percent internal carotid artery stenosis: less than 50% Vertebral artery: Flow direction is antegrade. Left side: Brachial blood pressure: 168/77 mm Hg. Common carotid artery peak systolic velocity: 139 cm/sec. Internal carotid artery peak systolic velocity: 103 cm/sec. Internal carotid artery end diastolic velocity: 23 cm/sec. External carotid artery peak systolic velocity: 118 cm/sec. ICA/CCA peak systolic ratio: 0.7 . Camacho scale imaging description: Mild plaque at the bifurcation Percent internal carotid artery stenosis: Less than 50% . Vertebral artery: Flow direction is antegrade. IMPRESSION: 1. Less than 50% stenosis of the right internal carotid artery. 2. 50-69% stenosis at the origin of the left internal carotid artery. 3. It is noted there is elevated peak systolic velocity of the external carotid artery on the right. Further evaluation with CTA may be obtained as clinically indicated. Dictated by: Jannie Alcantar M.D. on 05/08/2021 at 14:55 Approved by: Jannie Alcantar M.D. on 05/08/2021 at 14:57
== END ==
PROVIDERS: Family Provider Nurse Practitioner; PCP Nurse Practitioner; Referring Provider Internal Medicine Cardiovascular Disease; Visit Provider Internal Medicine Cardiovascular Disease
DX: I10 Essential (primary) hypertension (principal); I77.9 Disorder of arteries and arterioles, unspecified; I65.23 Occlusion and stenosis of bilateral carotid arteries
CPT/HCPCS: 93880

== ENCOUNTER → 2021-05-31 11:44 | Outpatient (CLI) | payer MEDICARE, OTHER, SELFPAY ==
[2019-03-09 16:54] VITALS: BMI 25.4
[2021-05-31 13:25] LABS: Glucose 96 mg/dL (80-110)
[2021-05-31 13:55] LABS: Thyroid Stimulating Hormone 0.748 uIU/mL (0.47-4.68)
== END ==
PROVIDERS: Family Provider Nurse Practitioner; PCP Nurse Practitioner; Referring Provider Internal Medicine Endocrinology, Diabetes & Metabolism; Visit Provider Internal Medicine Endocrinology, Diabetes & Metabolism
DX: R73.9 Hyperglycemia, unspecified (principal); E03.9 Hypothyroidism, unspecified
CPT/HCPCS: 36415; 82947; 83036; 84443

== ENCOUNTER → 2021-06-25 14:32 | Outpatient (CLI) | payer MEDICARE, OTHER, SELFPAY ==
[2021-06-19 11:35] VITALS: BMI 25.4
--- NOTE | 2021-06-25 14:34 | DI.US.S_ITS ---
PROCEDURE: US THYROID INDICATIONS: RIGHT THYROID NODULE TECHNIQUE: Real-time scanning was performed of the thyroid gland, with image documentation. COMPARISON: [facility], US, THYROID, 11/11/2007, 10:19. FINDINGS: Right: Thyroid lobe measures 3.8 x 1.6 x 1.1 cm, and is homogeneous in echotexture. Left: Thyroid lobe measures 3.4 x 1.0 x 1.0 cm, and is homogenous in echotexture. Isthmus: 3 mm thick. Nodule number: 1 Location: Right mid thyroid Size: 0.8 x 0.5 x 0.7 cm. Composition: Solid Echogenicity: Hyperechoic Shape: wider than tall. Margins: Smooth Echogenic foci: None Total points: 3 ACR TI-RADS category: 3 Recommendation: Follow-up at 1, 3, and 5 years. IMPRESSION: TIRADS 3 lesion within the right thyroid. Follow-up as above. Dictated by: Maurice Serrato M.D. on 06/25/2021 at 16:09 Approved by: Maurice Serrato M.D. on 06/25/2021 at 16:52
== END ==
PROVIDERS: Family Provider Nurse Practitioner; PCP Nurse Practitioner; Referring Provider Nurse Practitioner; Visit Provider Nurse Practitioner
DX: E06.3 Autoimmune thyroiditis (principal); E03.9 Hypothyroidism, unspecified; E04.1 Nontoxic single thyroid nodule
CPT/HCPCS: 76536

== ENCOUNTER → 2021-09-15 11:33 | Outpatient (CLI) | payer MEDICARE, OTHER, SELFPAY ==
[2021-06-19 11:35] VITALS: BMI 25.4
[2021-09-15 13:41] LABS: Free T3, Triiodothyronine Free 3.93 pg/mL (2.77-5.27); Free T4, Direct Thyroxine 1.55 ng/dL (0.78-2.19)
[2021-09-15 13:54] LABS: Thyroid Stimulating Hormone < 0.015 uIU/mL (0.47-4.68)
[2021-09-16 07:16] LABS: Thyroid Peroxidase Antibodies 106 IU/mL (0-34)
== END ==
PROVIDERS: Family Provider Nurse Practitioner; PCP Nurse Practitioner; Referring Provider Nurse Practitioner; Visit Provider Nurse Practitioner
DX: E03.9 Hypothyroidism, unspecified (principal); E06.3 Autoimmune thyroiditis
CPT/HCPCS: 36415; 84439; 84443; 84481; 86376

== ENCOUNTER → 2021-10-16 15:08 | Outpatient (CLI) | payer MEDICARE, OTHER, SELFPAY ==
[2021-06-19 11:35] VITALS: BMI 25.4
[2021-10-16 16:46] LABS: Free T3, Triiodothyronine Free 3.26 pg/mL (2.77-5.27); Free T4, Direct Thyroxine 1.25 ng/dL (0.78-2.19)
[2021-10-16 16:59] LABS: Thyroid Stimulating Hormone 1.51 uIU/mL (0.47-4.68)
[2021-10-17 08:02] LABS: Thyroid Peroxidase Antibodies 79 IU/mL (0-34)
== END ==
PROVIDERS: Family Provider Nurse Practitioner; PCP Nurse Practitioner; Referring Provider Nurse Practitioner; Visit Provider Nurse Practitioner
DX: E03.9 Hypothyroidism, unspecified (principal); E06.3 Autoimmune thyroiditis; I10 Essential (primary) hypertension; L65.8 Other specified nonscarring hair loss
CPT/HCPCS: 36415; 84439; 84443; 84481; 86376

== ENCOUNTER → 2021-10-25 10:15 | Outpatient (CLI) | payer MEDICARE, OTHER, SELFPAY ==
[2021-06-19 11:35] VITALS: BMI 25.4
--- NOTE | 2021-10-25 10:18 | DI.RAD.S_ITS ---
PROCEDURE: XR CHEST 2V INDICATIONS: breast cancer screening TECHNIQUE: 2 views of the chest were acquired. COMPARISON: None. FINDINGS: Surgical changes and devices: None. Lungs and pleura: Lungs are clear. No pleural effusions or pneumothorax. Mediastinum: Mediastinal contours are normal. Heart size is normal. Bones and chest wall: No suspicious bony abnormalities. Soft tissues appear unremarkable. IMPRESSION: No acute cardiopulmonary process demonstrated radiographically. Dictated by: Arpit Gao M.D. on 10/25/2021 at 11:05 Approved by: Arpit Gao M.D. on 10/25/2021 at 11:07
== END ==
PROVIDERS: Family Provider Nurse Practitioner; PCP Nurse Practitioner; Referring Provider Nurse Practitioner; Visit Provider Nurse Practitioner
DX: R05.9 Cough, unspecified (principal); Z87.891 Personal history of nicotine dependence
CPT/HCPCS: 71046

== ENCOUNTER → 2021-12-26 12:41 | Outpatient (CLI) | payer MEDICARE, OTHER, SELFPAY ==
[2021-06-19 11:35] VITALS: BMI 25.4
--- NOTE | 2021-12-26 12:44 | DI.MG.S_ITS ---
BILATERAL DIGITAL SCREENING MAMMOGRAM 3D/2D WITH CAD: 12/26/2021 CLINICAL: Routine screening. Family history of breast cancer. Comparison is made to exams dated: 12/11/2020 mammogram, 01/07/2020 mammogram, 06/22/2020 mammogram, 05/25/2019 mammogram, and 11/21/2018 mammogram - [facility]. The tissue of both breasts is heterogeneously dense. This may lower the sensitivity of mammography. Current study was also evaluated with a Computer Aided Detection (CAD) system. There are grouped calcifications in the right breast posterior depth lateral region seen on the craniocaudal view only. No other significant masses, calcifications, or other findings are seen in either breast. IMPRESSION: INCOMPLETE: NEEDS ADDITIONAL IMAGING EVALUATION The grouped calcifications in the right breast are indeterminate. Spot magnification views are recommended. This exam was interpreted at Station ID: [id number]. NOTE: For mammograms, a report in lay terms will be sent to the patient. Approximately 15% of breast malignancies will not be visualized mammographically. In the management of a palpable breast mass, a negative mammogram must not discourage biopsy of a clinically suspicious lesion. Electronically Signed By: Tiarra Rosario M.D. lk/:12/26/2021 13:41:46 copy to: CECILIA REYES letter sent: Additional Imaging Needed ACR BI-RADS Category 0: Incomplete 3340F
== END ==
PROVIDERS: Family Provider Nurse Practitioner; PCP Nurse Practitioner; Referring Provider Nurse Practitioner; Visit Provider Nurse Practitioner
DX: Z12.31 Encounter for screening mammogram for malignant neoplasm of breast; Z80.3 Family history of malignant neoplasm of breast; Z13.820 Encounter for screening for osteoporosis; Z78.0 Asymptomatic menopausal state; M85.89 Other specified disorders of bone density and structure, multiple sites; Z79.890 Hormone replacement therapy
CPT/HCPCS: 77063; 77067; 77080

== ENCOUNTER → 2022-01-10 14:05 | Outpatient (CLI) | payer MEDICARE, OTHER, SELFPAY ==
[2021-06-19 11:35] VITALS: BMI 25.4
--- NOTE | 2022-01-10 14:07 | DI.MG.S_ITS ---
UNILATERAL RIGHT DIGITAL DIAGNOSTIC MAMMOGRAM 3D/2D WITH ADDITIONAL VIEWS: 01/10/2022 CLINICAL: Additional evaluation requested from prior study. Comparison is made to exams dated: 12/26/2021 mammogram, 12/11/2020 mammogram, 06/22/2020 mammogram, 01/07/2020 mammogram, and 05/25/2019 mammogram - [facility]. The tissue of right breast is heterogeneously dense. This may lower the sensitivity of mammography. There are 0.3 cm grouped punctate round calcifications in the right breast posterior depth lateral region. These calcifications are stable since at least 2018. No other significant masses or calcifications are seen in the breast. IMPRESSION: BENIGN There is no mammographic evidence of malignancy. Stable punctate calcifications in the right breast are benign. A 1 year screening mammogram is recommended. Exam findings were conveyed to the patient. This exam was interpreted at Station ID: [id number]. NOTE: For mammograms, a report in lay terms will be sent to the patient. Approximately 15% of breast malignancies will not be visualized mammographically. In the management of a palpable breast mass, a negative mammogram must not discourage biopsy of a clinically suspicious lesion. Electronically Signed By: Marcin Ibarra M.D. slc/:01/10/2022 14:52:50 copy to: CECILIA REYES letter sent: Normal Exam ACR BI-RADS Category 2: Benign Finding(s) 3342F
== END ==
PROVIDERS: Family Provider Nurse Practitioner; PCP Nurse Practitioner; Referring Provider Nurse Practitioner; Visit Provider Nurse Practitioner
DX: R92.8 Other abnormal and inconclusive findings on diagnostic imaging of breast (principal); R92.1 Mammographic calcification found on diagnostic imaging of breast
CPT/HCPCS: 77065; G0279

== ENCOUNTER → 2022-01-24 12:33 | Outpatient (CLI) | payer MEDICARE, OTHER, SELFPAY ==
[2021-06-19 11:35] VITALS: BMI 25.4
--- NOTE | 2022-01-24 12:38 | DI.RAD.S_ITS ---
PROCEDURE: XR FOOT RT MIN 3V INDICATIONS: chronic foot pain, no trauma, h/o arthritis TECHNIQUE: Three views of the foot were acquired. COMPARISON: None. FINDINGS: Bones: No fractures or dislocations. Asymmetric joint space loss at the 1st MTP joint with slight hallux valgus deformity. Mild marginal spurs present. Moderate size plantar calcaneal spur. No suspicious bony lesions. Soft tissues: No tibiotalar joint effusion. Achilles tendon appears normal. IMPRESSION: 1. No acute fractures or bone lesions. 2. Mild 1st MTP hallux valgus and moderate degeneration at the MTP joint. Dictated by: Claudia Avila M.D. on 01/24/2022 at 15:59 Approved by: Claudia Avila M.D. on 01/24/2022 at 16:03
== END ==
PROVIDERS: Family Provider Nurse Practitioner; PCP Nurse Practitioner; Referring Provider Pediatrics; Visit Provider Pediatrics
DX: M20.11 Hallux valgus (acquired), right foot (principal); M19.071 Primary osteoarthritis, right ankle and foot; M79.671 Pain in right foot
CPT/HCPCS: 73630

== ENCOUNTER → 2022-10-08 11:08 | Outpatient (CLI) | payer MEDICARE, SELFPAY ==
[2021-06-19 11:35] VITALS: BMI 25.4
--- NOTE | 2022-10-08 11:10 | DI.US.S_ITS ---
PROCEDURE: US THYROID INDICATIONS: 1 YEAR FOLLOW UP TECHNIQUE: Real-time scanning was performed of the thyroid gland, with image documentation. COMPARISON: [facility], US, US THYROID, 06/25/2021, 16:09. FINDINGS: Right: Thyroid lobe measures 4.5 x 1.6 x 1.6 cm, and is heterogeneous in echotexture. Left: Thyroid lobe measures 3.8 x 1.3 x 1.1 cm, and is heterogeneous in echotexture. Isthmus: 3.7 mm thick. Nodule number: 1 Location: Mid pole of right thyroid lobe Size: 0.9 x 0.9 x 0.8 cm, previously 0.8 x 0.7 x 0.5 cm. Composition: Solid Echogenicity: Hyperechoic Shape: Wider than tall Margins: Smooth Echogenic foci: Non Total points: 3 ACR TI-RADS category: Mildly suspicious IMPRESSION: Mildly suspicious solitary nodule in mid pole right thyroid lobe minimally increased in size compared to previous study. No new thyroid nodule is seen. Continued ultrasound follow-up based on following recommendation is suggested. ACR TI-RADS definitions and recommendations: TI-RADS 1 (benign): 0 points. FNA not needed. TI-RADS 2 (not suspicious): 2 points. FNA not needed. TI-RADS 3 (mildly suspicious): 3 points. * FNA if 2.5 cm or larger, follow up if 1.5 cm or larger (at 1, 3, and 5 years). TI-RADS 4 (moderately suspicious): 4-6 points. * FNA if 1.5 cm or larger, follow up if 1 cm or larger (at 1, 2, 3, and 5 years). TI-RADS 5 (highly suspicious): 7 points or more. * FNA if 1 cm or larger, follow up if 0.5 cm or larger (every year for 5 years). Dictated by: Ayaan Reyes M.D. on 10/08/2022 at 14:07 Approved by: Ayaan Reyes M.D. on 10/08/2022 at 14:09
== END ==
PROVIDERS: Family Provider Nurse Practitioner; PCP Nurse Practitioner; Referring Provider Nurse Practitioner; Visit Provider Nurse Practitioner
DX: E04.1 Nontoxic single thyroid nodule (principal); E06.3 Autoimmune thyroiditis; E03.9 Hypothyroidism, unspecified
CPT/HCPCS: 76536

== ENCOUNTER → 2022-10-09 11:26 | Outpatient (CLI) | payer MEDICARE, SELFPAY ==
[2021-06-19 11:35] VITALS: BMI 25.4
[2022-10-09 13:36] LABS: Cholesterol 194 mg/dL (140-199); Triglycerides 54 mg/dL (35-150)
[2022-10-09 13:47] LABS: HDL Cholesterol 124 mg/dL (40-60); LDL Cholesterol Calculated 59 mg/dL (<100)
== END ==
PROVIDERS: Family Provider Nurse Practitioner; PCP Nurse Practitioner; Referring Provider Internal Medicine Cardiovascular Disease; Visit Provider Internal Medicine Cardiovascular Disease
DX: E78.5 Hyperlipidemia, unspecified (principal)
CPT/HCPCS: 36415; 80061

== ENCOUNTER → 2023-01-06 08:37 | Outpatient (CLI) | payer MEDICARE, SELFPAY ==
[2021-06-19 11:35] VITALS: BMI 25.4
--- NOTE | 2023-01-06 | DI.MG.S_ITS ---
BILATERAL DIGITAL SCREENING MAMMOGRAM 3D/2D WITH CAD: 01/06/2023 CLINICAL: Routine screening. Family history of breast cancer. Comparison is made to exams dated: 01/10/2022 mammogram, 12/26/2021 mammogram, and 12/11/2020 mammogram - . Both breasts are heterogeneously dense, which may obscure small masses (category c / 51-75% glandular tissue). Current study was also evaluated with a Computer Aided Detection (CAD) system. No significant masses, calcifications, or other findings are seen in either breast. There has been no significant interval change. IMPRESSION: NEGATIVE There is no mammographic evidence of malignancy. A 1 year screening mammogram is recommended. Based on the Tyrer Cuzick model (a risk assessment model) the patient's lifetime risk is 14.2% and her 10 year risk is 8.5%. According to the ACR, ACS, and NCCN guidelines, an annual breast MRI exam along with mammogram is recommended if the patient's lifetime risk is 20% or greater. This exam was interpreted at Station ID: [id number]. NOTE: For mammograms, a report in lay terms will be sent to the patient. Approximately 15% of breast malignancies will not be visualized mammographically. In the management of a palpable breast mass, a negative mammogram must not discourage biopsy of a clinically suspicious lesion. Electronically Signed By: Tiarra kc/gregorio:01/06/2023 16:10:21 copy to: CECLIIA REYES letter sent: Normal Exam ACR BI-RADS Category 1: Negative 3341F
== END ==
PROVIDERS: Family Provider Nurse Practitioner; PCP Nurse Practitioner; Referring Provider Nurse Practitioner; Visit Provider Nurse Practitioner
DX: Z12.31 Encounter for screening mammogram for malignant neoplasm of breast (principal)
CPT/HCPCS: 77063; 77067

== ENCOUNTER → 2023-01-27 08:33 | Outpatient (CLI) | payer MEDICARE, SELFPAY ==
[2021-06-19 11:35] VITALS: BMI 25.4
--- NOTE | 2023-01-27 08:34 | DI.MG.S_ITS ---
UNILATERAL RIGHT DIGITAL DIAGNOSTIC MAMMOGRAM 3D/2D SHORT-TERM FOLLOW-UP: 01/27/2023 CLINICAL: Itchy nipple. Comparison is made to exams dated: 01/06/2023 mammogram, 12/26/2021 mammogram, and 12/11/2020 mammogram - [facility]. The right breast is heterogeneously dense, which may obscure small masses (category c / 51-75% glandular tissue). No significant masses, calcifications, or other findings are seen in the breast. IMPRESSION: INCOMPLETE: NEEDS ADDITIONAL IMAGING EVALUATION There is no abnormality seen in the right breast to correspond with the nipple abnormality, however, ultrasound is recommended. Based on the Tyrer Cuzick model (a risk assessment model) the patient's lifetime risk is 14.2% and her 10 year risk is 8.5%. According to the ACR, ACS, and NCCN guidelines, an annual breast MRI exam along with mammogram is recommended if the patient's lifetime risk is 20% or greater. This exam was interpreted at Station ID: [id number]. NOTE: For mammograms, a report in lay terms will be sent to the patient. Approximately 15% of breast malignancies will not be visualized mammographically. In the management of a palpable breast mass, a negative mammogram must not discourage biopsy of a clinically suspicious lesion. Electronically Signed By: Fausto Metcalf M.D. lc/:01/27/2023 09:51:00 copy to: CECILIA REYES ACR BI-RADS Category 0: Incomplete [id number]
--- NOTE | 2023-01-27 08:34 | DI.US.S_ITS ---
ULTRASOUND OF RIGHT BREAST: 01/27/2023 CLINICAL: Itchy right nipple. Comparison is made to exams dated: 01/27/2023 mammogram, 01/06/2023 mammogram, 01/10/2022 mammogram, 12/26/2021 mammogram, and 12/11/2020 mammogram - [facility]. Color flow and real-time ultrasound of the right breast were performed. Camacho scale images of the real-time examination were reviewed. IMPRESSION: NEGATIVE There is no sonographic evidence of malignancy. There is no abnormality seen in the right breast to correspond with the nipple abnormality, however, clinical correlation and clinical followup are recommended. Return to annual mammogram screening schedule is recommended. This exam was interpreted at Station ID: [id number]. Electronically Signed By: Fausto Metcalf M.D. lc/:01/27/2023 09:53:02 copy to: CECILIA REYES letter sent: Clinical Evaluation Ultrasound BI-RADS: 1 Negative
[2023-01-27 10:46] LABS: Add Manual Diff / Slide Review NO; Basophils Absolute Auto 0 /uL (0-100); Basophils Percent Auto 0.8 % (0-2); Eosinophils Absolute Auto 0 /uL (0-450); Eosinophils Percent Auto 0.4 % (2-4); Hematocrit 36.7 % (36-46); Hemoglobin 12.7 g/dL (12.0-16.0); Lymphocytes Absolute Auto 1300 /uL (1100-4500); Lymphocytes Percent Auto 27.2 % (25-40); Mean Corpuscular HGB Conc 34.5 % (30-36); Mean Corpuscular Hemoglobin 33.4 PG (26-34); Mean Corpuscular Volume 96.7 fL (80-100); Monocytes Absolute Auto 500 /uL (0-900); Monocytes Percent Auto 10.5 % (3-14); Neutrophils Absolute Auto 2900 /uL (1500-7000); Neutrophils Percent Auto 61.1 % (50-75); Platelet Count 211 X10^3/uL (150-400); Red Cell Distribution Width 13.8 % (11.6-14.8); White Blood Cell Count 4.8 X10^3/uL (4.5-11.0)
[2023-01-27 11:14] LABS: Alanine Aminotransferase 21 IU/L (<35); Albumin 4.2 g/dL (3.5-5.0); Albumin Globulin Ratio 1.3 (1.0-2.8); Alkaline Phosphatase 54 U/L (38-126); Aspartate Aminotransferase 37 IU/L (14-36); BUN Creatinine Ratio 26.8 (6-22); Bilirubin Total 0.6 mg/dL (0.2-1.3); Blood Urea Nitrogen 15 mg/dL (7-17); Calcium 8.8 mg/dL (8.4-10.2); Carbon Dioxide 28 mmol/L (22-32); Chloride 97 mmol/L (98-107); Cholesterol 184 mg/dL (140-199); Estimated Glomerular Filt Rate > 60 mL/min (>60); Globulin 3.2 g/dL (1.7-4.1); Glucose 111 mg/dL (80-110); Potassium 4.5 mmol/L (3.4-5.1); Sodium 131 mmol/L (137-145); Total Protein 7.4 g/dL (6.3-8.2); Triglycerides 51 mg/dL (35-150)
[2023-01-27 11:21] LABS: HDL Cholesterol 119 mg/dL (40-60); HEMOLYSIS 17 (0-50); LDL Cholesterol Calculated 55 mg/dL (<100)
[2023-01-27 11:29] LABS: Free T3, Triiodothyronine Free 3.57 pg/mL (2.77-5.27)
[2023-01-27 11:42] LABS: Thyroid Stimulating Hormone 0.936 uIU/mL (0.47-4.68)
[2023-01-27 12:16] LABS: Hep C Virus Ab w/Reflex Quant NEGATIVE s/c (NEGATIVE)
[2023-01-27 16:27] LABS: Microalbumi Creatinin Ratio Ur 46.6 ug/mg CR (<30); Microalbumin Urine Random 0.7 mg/dL (0-1.6)
== END ==
PROVIDERS: Family Provider Nurse Practitioner; PCP Nurse Practitioner; Referring Provider Nurse Practitioner; Visit Provider Nurse Practitioner
DX: R92.2 Inconclusive mammogram; Q83.9 Congenital malformation of breast, unspecified; M85.80 Other specified disorders of bone density and structure, unspecified site; E03.9 Hypothyroidism, unspecified; I10 Essential (primary) hypertension; E78.5 Hyperlipidemia, unspecified; L65.8 Other specified nonscarring hair loss; E06.3 Autoimmune thyroiditis; Z78.0 Asymptomatic menopausal state; Z11.59 Encounter for screening for other viral diseases; Z79.899 Other long term (current) drug therapy; L29.8 Other pruritus; N64.89 Other specified disorders of breast
CPT/HCPCS: 36415; 76642; 77065; 80053; 80061; 82043; 82570; 84439; 84443; 84481; 85025; 86803; G0279

== ENCOUNTER → 2023-02-11 13:03 | Outpatient (CLI) | payer MEDICARE, SELFPAY ==
[2021-06-19 11:35] VITALS: BMI 25.4
[2023-02-11 15:13] LABS: Appearance Urine UA CLEAR; Bilirubin Urine UA NEGATIVE (NEGATIVE); Color Urine UA YELLOW; Glucose Urine UA NEGATIVE (Negative); Ketones Urine UA NEGATIVE (NEGATIVE); Leukocyte Esterase Urine UA 1+ (NEGATIVE); Nitrite Urine UA NEGATIVE (Negative); Occult Blood Urine UA NEGATIVE (Negative); Protein Urine UA NEGATIVE (Negative); Specific Gravity Urine UA <=1.005 (1.000-1.035); Urobilinogen Urine UA 0.2 E.U./dL (0.2)
[2023-02-11 16:01] LABS: Bacteria Urine None Seen; Culture Indicated Urine Specimen Cultured; RBC Urine 0-1/HPF (0-5/HPF); Squamous Epithelial Cell Urine None Seen (0-5/HPF); WBC Urine 0-1/HPF (0-5/HPF)
== END ==
PROVIDERS: Family Provider Nurse Practitioner; PCP Nurse Practitioner; Referring Provider Nurse Practitioner; Visit Provider Nurse Practitioner
DX: R35.0 Frequency of micturition (principal)
CPT/HCPCS: 81003; 81015; 87086

== ENCOUNTER → 2023-03-03 09:37 | Outpatient (CLI) | payer MEDICARE, SELFPAY ==
[2021-06-19 11:35] VITALS: BMI 25.4
--- NOTE | 2023-03-03 09:39 | DI.US.S_ITS ---
PROCEDURE: US ABDOMEN LIMITED INDICATIONS: ELEVATED LFTS TECHNIQUE: Real-time scanning was performed of the abdominal and retroperitoneal organs, with image documentation. COMPARISON: None. FINDINGS: Liver: Liver is normal in size and homogeneous in echotexture. Gallbladder: Gallbladder is within normal limits. Biliary ducts: Intrahepatic bile ducts are non-dilated. Extrahepatic bile duct caliber measures 6.0 mm. Normal is 6-7 mm or less in diameter, or 10 mm or less post-cholecystectomy. Pancreas: Visualized portions of the pancreas are sonographically normal. Miscellaneous: No free abdominal fluid. IMPRESSION: 1. Unremarkable ultrasound exam of the right upper quadrant abdomen. Dictated by: Ayaan Reyes M.D. on 03/03/2023 at 11:39 Approved by: Ayaan Reyes M.D. on 03/03/2023 at 11:40
== END ==
PROVIDERS: Family Provider Nurse Practitioner; PCP Nurse Practitioner; Referring Provider Nurse Practitioner; Visit Provider Nurse Practitioner
DX: R79.89 Other specified abnormal findings of blood chemistry (principal)
CPT/HCPCS: 76705

== ENCOUNTER → 2023-07-30 10:53 | Outpatient (CLI) | payer MEDICARE, SELFPAY ==
[2021-06-19 11:35] VITALS: BMI 25.4
[2023-07-30 12:15] LABS: Cholesterol 209 mg/dL (140-199); Triglycerides 54 mg/dL (35-150)
[2023-07-30 12:23] LABS: HDL Cholesterol 115 mg/dL (40-60); LDL Cholesterol Calculated 83 mg/dL (<100)
== END ==
PROVIDERS: Family Provider Nurse Practitioner; PCP Nurse Practitioner; Referring Provider Internal Medicine Cardiovascular Disease; Visit Provider Internal Medicine Cardiovascular Disease
DX: I10 Essential (primary) hypertension (principal); R00.2 Palpitations; I65.23 Occlusion and stenosis of bilateral carotid arteries
CPT/HCPCS: 36415; 80061

== ENCOUNTER → 2023-09-03 08:41 | Outpatient (CLI) | payer MEDICARE, SELFPAY ==
[2021-06-19 11:35] VITALS: BMI 25.4
--- NOTE | 2023-09-03 | DI.US.S_ITS ---
PROCEDURE: US CAROTID DOPPLER BI INDICATIONS: Occlusion and stenosis of bilateral carotid arteries TECHNIQUE: Color and pulse Doppler interrogation was performed of both carotid systems, with image documentation and velocity measurements. COMPARISON: [facility], , US CAROTID DOPPLER BI, 05/08/2021, 9:23. FINDINGS: Stenosis calculations are based on SRU (Society of Radiologists in Ultrasound) criteria. Right side: Brachial blood pressure: 158/71 mm Hg. Common carotid artery peak systolic velocity: 83 cm/sec. Internal carotid artery peak systolic velocity: 184 cm/sec. Internal carotid artery end diastolic velocity: 37 cm/sec. External carotid artery peak systolic velocity: 150 cm/sec. ICA/CCA peak systolic ratio: 2.2 . Camacho scale imaging description: Moderate to severe plaque at the bifurcation Percent internal carotid artery stenosis: 50-69% stenosis . Vertebral artery: Flow direction is antegrade. Left side: Brachial blood pressure: 158/71 mm Hg. Common carotid artery peak systolic velocity: 84 cm/sec. Internal carotid artery peak systolic velocity: 69 cm/sec. Internal carotid artery end diastolic velocity: 14 cm/sec. External carotid artery peak systolic velocity: 79 cm/sec. ICA/CCA peak systolic ratio: 0.9 Camacho scale imaging description: Moderate plaque at the bifurcation Percent internal carotid artery stenosis: Less than 50% stenosis Vertebral artery: Flow direction is antegrade. IMPRESSION: 50-65% stenosis of the right internal carotid artery with less than 50% stenosis on the left. Dictated by: Jannie Alcantar M.D. on 09/03/2023 at 16:13 Approved by: Jannie Alcantar M.D. on 09/03/2023 at 16:15
== END ==
PROVIDERS: Family Provider Nurse Practitioner; PCP Nurse Practitioner; Referring Provider Internal Medicine Cardiovascular Disease; Visit Provider Internal Medicine Cardiovascular Disease
DX: I65.23 Occlusion and stenosis of bilateral carotid arteries (principal)
CPT/HCPCS: 93880

== ENCOUNTER → 2024-01-08 11:57 | Outpatient (CLI) | payer MEDICARE, SELFPAY ==
[2021-06-19 11:35] VITALS: BMI 25.4
--- NOTE | 2024-01-08 11:58 | DI.MG.S_ITS ---
BILATERAL DIGITAL SCREENING MAMMOGRAM 3D/2D WITH CAD: 01/08/2024 CLINICAL: Routine screening. Family history of breast cancer. Comparison is made to exams dated: 01/27/2023 mammogram, 01/06/2023 mammogram, 12/26/2021 mammogram, and 12/11/2020 mammogram - [facility]. There are scattered areas of fibroglandular density in both breasts (category b / 25%-50% glandular tissue). Current study was also evaluated with a Computer Aided Detection (CAD) system. No significant masses, calcifications, or other findings are seen in either breast. There has been no significant interval change. IMPRESSION: NEGATIVE There is no mammographic evidence of malignancy. A 1 year screening mammogram is recommended. Based on the Tyrer Cuzick model (a risk assessment model) the patient's lifetime risk is 9.0% and her 10 year risk is 5.7%. According to the ACR, ACS, and NCCN guidelines, an annual breast MRI exam along with mammogram is recommended if the patient's lifetime risk is 20% or greater. This exam was interpreted at Station ID: [id number]. NOTE: For mammograms, a report in lay terms will be sent to the patient. Approximately 15% of breast malignancies will not be visualized mammographically. In the management of a palpable breast mass, a negative mammogram must not discourage biopsy of a clinically suspicious lesion. Electronically Signed By: Rose Marie Dempsey M.D., Ph.D. alem/[email or web address]:01/08/2024 15:41:15 copy to: CECILIA REYES letter sent: Normal Exam ACR BI-RADS Category 1: Negative [id number]
== END ==
PROVIDERS: Family Provider Nurse Practitioner; PCP Nurse Practitioner; Referring Provider Nurse Practitioner; Visit Provider Nurse Practitioner
DX: Z12.31 Encounter for screening mammogram for malignant neoplasm of breast (principal); Z80.3 Family history of malignant neoplasm of breast; R92.323 Mammographic fibroglandular density, bilateral breasts
CPT/HCPCS: 77063; 77067

== ENCOUNTER → 2024-01-11 11:10 | Outpatient (CLI) | payer MEDICARE, SELFPAY ==
[2021-06-19 11:35] VITALS: BMI 25.4
--- NOTE | 2024-01-11 11:11 | DI.MRI.S_ITS ---
PROCEDURE: MR CERVICAL SPINE WO CON INDICATIONS: Spondylosis without myelopathy or radiculopathy TECHNIQUE: Noncontrast sagittal T1 spin echo and T2 fast spin echo, sagittal STIR, foraminal oblique sagittal T2 fast spin echo, and axial gradient echo or T2 fast spin echo through the cervical spine. COMPARISON: [facility], CR, XR CERVICAL SPINE 2 OR 3 VIEWS, 01/05/2024, 16:41. [facility], , MR CERVICAL SPINE WO CON, 11/21/2018, 11:10. FINDINGS: Image quality: Excellent. Alignment and Curvature: There is cervical straightening with trace anterolisthesis of C3 on C4, C4 on C5 and trace retrolisthesis of C5 on C6. Bone Marrow: Marrow demonstrates normal overall signal. Spinal Cord: Visualized spinal cord has normal size and signal. No cerebellar tonsillar herniation. Paraspinous Soft Tissues: No paravertebral masses. Prevertebral soft tissues are normal in thickness. Discs: Mild disc desiccation is present at C5-6. C2-C3: Minimal disc bulge without spinal stenosis or foraminal narrowing. No interval change. C3-C4: Mild disc bulge without spinal stenosis. Minimal right foraminal narrowing slightly progressive. C4-C5: Mild disc bulge without spinal stenosis. Mild moderate right foraminal narrowing, slightly progressive. C5-C6: Mild disc bulge with minimal canal narrowing. Minimal to mild right foraminal narrowing, unchanged. Minimal left foraminal narrowing slightly progressive. C6-C7: Mild disc bulge without spinal stenosis. Mild right and minimal left foraminal narrowing, questionably minimally progressive on the right. C7-T1: No disc bulge, spinal stenosis or foraminal narrowing. IMPRESSION: Disc bulges and foraminal narrowing with minimal areas of progression as noted above. Dictated by: Jannie Alcantar M.D. on 01/13/2024 at 15:24 Approved by: Jannie Alcantar M.D. on 01/13/2024 at 15:28
== END ==
LOC: MRI 11:11
PROVIDERS: Family Provider Nurse Practitioner; PCP Nurse Practitioner; Referring Provider Physical Medicine & Rehabilitation Pain Medicine; Visit Provider Physical Medicine & Rehabilitation Pain Medicine
DX: M47.812 Spondylosis without myelopathy or radiculopathy, cervical region (principal); M48.02 Spinal stenosis, cervical region; M50.31 Other cervical disc degeneration, high cervical region
CPT/HCPCS: 72141

== ENCOUNTER → 2024-02-05 11:30 | Outpatient (CLI) | payer MEDICARE, SELFPAY ==
[2021-06-19 11:35] VITALS: BMI 25.4
[2024-02-05 13:49] LABS: Alanine Aminotransferase 15 IU/L (<35); Albumin 4.4 g/dL (3.5-5.0); Albumin Globulin Ratio 1.5 (1.0-2.8); Alkaline Phosphatase 61 U/L (38-126); Aspartate Aminotransferase 27 IU/L (14-36); BUN Creatinine Ratio 25.8 (6-22); Bilirubin Total 0.9 mg/dL (0.2-1.3); Blood Urea Nitrogen 17 mg/dL (7-17); Calcium 9.1 mg/dL (8.4-10.2); Carbon Dioxide 29 mmol/L (22-32); Chloride 98 mmol/L (98-107); Cholesterol 189 mg/dL (140-199); Estimated Glomerular Filt Rate > 60 mL/min (>60); Globulin 2.9 g/dL (1.7-4.1); Glucose 96 mg/dL (80-110); HEMOLYSIS < 15 (0-50); Potassium 4.3 mmol/L (3.4-5.1); Sodium 130 mmol/L (137-145); Total Protein 7.3 g/dL (6.3-8.2); Triglycerides 47 mg/dL (35-150)
[2024-02-05 13:58] LABS: Free T3, Triiodothyronine Free 3.52 pg/mL (2.77-5.27); Free T4, Direct Thyroxine 1.24 ng/dL (0.78-2.19)
[2024-02-05 14:06] LABS: HDL Cholesterol 123 mg/dL (40-60); LDL Cholesterol Calculated 57 mg/dL (<100)
[2024-02-05 14:11] LABS: Thyroid Stimulating Hormone 1.39 uIU/mL (0.47-4.68)
[2024-02-05 16:28] LABS: Creatinine Urine Random 42.43 mg/dL
[2024-02-05 16:34] LABS: Microalbumin Urine Random 2.2 mg/dL (0-1.6)
== END ==
PROVIDERS: Family Provider Nurse Practitioner; PCP Nurse Practitioner; Referring Provider Nurse Practitioner; Visit Provider Nurse Practitioner
DX: E78.5 Hyperlipidemia, unspecified (principal); M85.80 Other specified disorders of bone density and structure, unspecified site; E06.3 Autoimmune thyroiditis; E03.9 Hypothyroidism, unspecified; I10 Essential (primary) hypertension; Z79.899 Other long term (current) drug therapy; Z78.0 Asymptomatic menopausal state
CPT/HCPCS: 36415; 80053; 80061; 82043; 82570; 84439; 84443; 84481

== ENCOUNTER 2024-03-09 12:32 | Day surgery (SDC) | payer MEDICARE, SELFPAY ==
[2024-02-11 11:42] VITALS: BMI 25.4
--- NOTE | 2024-03-09 | PATH_ITS ---
[facility] Accession Number: [id number] No. of containers..01 Tissue . 01 Material submitted: . colon - SIGMOID POLYP . 01 Diagnosis: SIGMOID POLYP: Hyperplastic polyp. STO 03/11/2024 1125 Local . 01 Electronically signed: . Guanako Up MD, Pathologist NPI- [id number] . 01 Gross description: . SIGMOID POLYP: Received in formalin are 2 fragment(s) of marie, soft tissue measuring 0.3 x 0.3 x 0.2 cm to 0.4 x 0.2 x 0.2 cm submitted entirely in 1 cassette(s) /GURPREET 03/11/20245 Local . 01 Pathologist provided ICD-10: K63.5 . 01 CPT . 559223 Specimen Comment: A courtesy copy of this report has been sent to [phone] Performed at: [address] [facility] [id number] MD Guanako Up MD Phone: [phone]
[2024-03-09 12:54] VITALS: BP 164/73; PULSE 78; RESP 15; TEMP 36.6; O2SAT 98
[2024-03-09] MEDS: LACTATED RINGERS 1,000 ML 42 ML IV (13:02)
--- NOTE | 2024-03-09 13:29 | P.HP_ITS ---
History of Present Illness History of Present Illness Date Patient Seen: 03/09/24 Time Patient Seen: 13:29 Chief complaint: Screening Colonoscopy Narrative: 69-year-old woman personal history of colonic polyps here for screening colonoscopy. No family history of colon cancer. No abdominal concerns today. 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 Daily consumption of alcohol Tobacco use disorder, mild, in sustained remission Carpal tunnel syndrome on both sides (~2018) Shoulder pain Fractures involving multiple body regions Colon polyps Hyperlipidemia History of ectopic Impingement syndrome of right shoulder Hypothyroid Hypertension Hx of ectopic (~1988) Surgical History Anesthesia History of tonsillectomy History of rotator cuff surgery (~2013) History of colonoscopy History of exploratory laparotomy H/O exploratory laparotomy Family History Father History of heart disease Hypertension Hyperlipidemia Stroke Mother Hyperlipidemia Brother Hypertension Brother Cancer History of heart disease Grandmother No problems noted. Family/Other Hypertension Social History household members: spouse Smoking Status: Former smoker alcohol intake: current Meds Home Medications and Allergies Home Medications Medication Instructions Recorded Confirmed Type losartan 100 mg tablet 100 mg PO DAILY 11/06/18 03/09/24 History aspirin 81 mg tablet,delayed 81 mg PO DAILY #30 tabs 03/10/19 03/09/24 Rx release hydralazine 25 mg tablet 25 mg PO BID 09/30/19 03/09/24 History rosuvastatin 20 mg tablet 40 mg PO DAILY 09/30/19 03/09/24 History Active folate See Rx Instructions PO DAILY 11/02/20 03/09/24 History diltiazem HCl 120 mg 120 mg PO DAILY 01/17/21 03/09/24 History tablet,extended release 24 hr progesterone micronized 100 mg 100 mg PO QAM #90 caps 10/14/23 03/09/24 Rx capsule levothyroxine 125 mcg tablet 125 mcg PO DAILY for disorder of 02/05/24 03/09/24 Rx thyroid gland #90 tabs calcium carbonate [Calcium 600] 1 tab PO .QD 02/11/24 02/11/24 History cholecalciferol (vitamin D3) 125 125 mcg PO DAILY 02/11/24 02/11/24 History mcg (5,000 unit) capsule estradiol 0.05 mg/24 hr semiweekly 1 patch transdermal .COMPLEX 02/11/24 02/11/24 History transdermal patch tirzepatide 2.5 mg/0.5 mL 2.5 mg (0.5 mL) SUBCUT QWEEK 4 02/11/24 02/11/24 Rx subcutaneous pen injector weeks #2 mL tirzepatide 5 mg/0.5 mL 5 mg (0.5 mL) SUBCUT QWEEK #2 mL 02/11/24 02/11/24 Rx subcutaneous pen injector tirzepatide 7.5 mg/0.5 mL 7.5 mg (0.5 mL) SUBCUT QWEEK #2 mL 02/11/24 02/11/24 Rx subcutaneous pen injector Allergies Allergy/AdvReac Type Severity Reaction Status Date / Time nadolol Allergy Severe Difficulty Verified 03/09/24 12:48 Breathing contact metal agent AdvReac Mild Rash Verified 03/09/24 12:48 Exam Vital Signs (past 8 hours): - 03/09/24 12:54 Temperature 97.8 F Pulse Rate 78 Respiratory Rate 15 Blood Pressure 164/73 H Pulse Oximetry 98 Oxygen Delivery Method Room Air Oxygen Flow Rate 0 Oxygen Delivery Method Room Air Oxygen Flow Rate 0 Narrative Exam Narrative: General adult woman alert oriented no acute distress Chest nonlabored respiration Extremities warm well perfused Assessment & Plan Assessment & Plan narrative: The patient requires colorectal screening and colonoscopy is recommended. Technical details were discussed. Risks, benefits, alternatives explained. Risks including but not limited to myocardial infarction, aspiration, bleeding, pain, missed lesion, incomplete examination, need for further radiographic studies, intestinal injury, and need for major abdominal surgery were discussed. All questions were answered to their satisfaction, and they are in agreement with this plan. Time-Based Coding :: [TOTAL MINUTES] spent with patient and on the chart (including review of chart, obtaining history, exam, reviewing outside data, placing orders, documenting exam and treatment plan, and counseling patient) on [DATE].
[2024-03-09 14:02] VITALS: BP 135/58; PULSE 63; RESP 20; TEMP 36.3; O2SAT 99
[2024-03-09 14:05] VITALS: BP 149/61; PULSE 63; RESP 25; TEMP 36.7; O2SAT 100
--- NOTE | 2024-03-09 14:06 | P.OP.COLON_ITS ---
Operative Date/Time/Diagnoses Date of procedure: 03/09/24 Time of procedure: 14:06 Pre-op diagnosis: Personal history of colonic polyps Post-op diagnosis: other (Colonic polyp x1) Procedure & Clinicians Study performed: Screening colonoscopy and polypectomy Same procedure as scheduled: Yes Indications: Personal history of colonic polyps Colorectal screening Surgeon: Arian Houston Procedure Notes Procedure in detail: The history and physical was performed/updated and the patient is ASA class is 2. The procedure was discussed in detail with the patient. Potential risks complications including infection, bleeding, missed diagnosis, perforation, need for surgery, and were explained. Their questions were answered and informed consent was obtained. Patient was brought to the procedure room and placed standard monitoring equipm ent. The patient's vital signs were monitored continuously throughout the entire procedure. Prior to starting time-out was performed. The patient was placed in the left lateral recumbent position. Procedural sedation was administered by anesthesia. Examination began with a thorough inspection of the perianal area there was no evidence of fissures, fistulae, external hemorrhoids or cutaneous malignancy. The colonoscopy scope was then placed into the anal canal and was advanced to the cecum, which was identified by the ileocecal valve, the appendiceal orifice and the confluence of the taenia. The scope was then slowly withdrawn examining colon thoroughly in all directions, irrigating it of any residual stool. The scope was retroflexed within the rectum The patient tolerated the procedure well. They will be discharged once criteria are met. The prep was of good/excellent quality. The withdrawl time was 7 minutes. FINDINGS * Sigmoid-3 mm hyperplastic polyp removed with biopsy forceps Specimen(s): other (Sigmoid polyp) Impression: Colonic polyp x1 Post-procedure Plan for aftercare: Follow-up dependent on pathology findings Disposition: same day surgery
== END 2024-03-09 14:20 | disposition home or self-care (01) ==
PROVIDERS: Family Provider Nurse Practitioner; PCP Nurse Practitioner; Referring Provider Surgery; Visit Provider Surgery
PROC: 0DJD8ZZ Inspection of Lower Intestinal Tract, Via Natural or Artificial Opening Endoscopic (ICD-10-PCS; CPT 45378; principal; 2024-03-09 13:30)
DX: Z12.11 Encounter for screening for malignant neoplasm of colon (principal); Z86.010 Personal history of colon polyps; K63.5 Polyp of colon
CPT/HCPCS: 45380; J2704

== ENCOUNTER 2024-09-11 12:12 | Emergency (ER) | payer MEDICARE, SELFPAY ==
[2024-02-11 11:42] VITALS: BMI 25.4
[2024-09-11] VITALS (8 sets, daily range): BP systolic 159–223; BP diastolic 68–98; PULSE 91–111; RESP 12–23; TEMP 36.6–36.8; O2SAT 95–99; BMI 29.2
--- NOTE | 2024-09-11 12:14 | DI.RAD.S_ITS ---
PROCEDURE: XR CHEST 1V INDICATIONS: Possible stroke TECHNIQUE: One view of the chest was acquired. COMPARISON: [facility], CR, XR CHEST 2V, 10/25/2021, 10:22. FINDINGS: Surgical changes and devices: None. Lungs and pleura: Lungs are clear. No pleural effusions or pneumothorax. Mediastinum: Mediastinal contours appear normal. Heart size is normal. Bones and chest wall: No suspicious bony lesions. Overlying soft tissues appear unremarkable. IMPRESSION: No acute cardiopulmonary abnormality is seen. Dictated by: Randy Rice M.D. on 09/11/2024 at 13:16 Approved by: Randy Rice M.D. on 09/11/2024 at 13:16
--- NOTE | 2024-09-11 12:22 | EKG_ITS ---
[address] [address] [address], [place] [address] Test Date: 2024-09-11 Pat Name: Gabby Garcia Department: [facility] Room: Gender: Female Petrologist: LESLIE : 1955 Requested By: Order Number: [id number] Reading MD: Trey Neely Measurements Intervals [place] Rate: 108 P: 69 MN: 152 QRS: 46 QRSD: 88 T: 46 QT: 332 QTc: 444 Interpretive Statements Sinus tachycardia Possible Left atrial enlargement Electronically Signed On 09-13-2024 9:43:02 PST by Trey Neely
--- NOTE | 2024-09-11 12:25 | ED.NEUROSD ---
HPI - Neuro Symptoms/Deficit General Chief Complaint: Neuro Symptoms/Deficit Stated Complaint: Stroke systems. High BP. Time Seen by Provider: 09/11/24 12:16 Source: patient and family Mode of arrival: Ambulatory History of Present Illness HPI Narrative: 69-year-old female with history of hypertension presents by private vehicle from home for visual disturbance that occurred just prior to arrival. Patient states that she was at home when all of a sudden out of the corner of her right eye she noticed ?waviness? of her vision. This lasted for about 5 minutes. She checked her blood pressure and noticed it was very elevated and so she decided to come to the ER for evaluation. Currently she states that she feels very ?shaky? but does not have further waviness of her vision. Patient states that something similar happened in 2019 and she was diagnosed with a ?TIA?. She does not take any blood thinners. Baseline BPs taken at home on home log 130-150s systolic. On Anticoagulants: No Related Data Home Medications Medication Instructions Recorded Confirmed losartan 100 mg tablet 100 mg PO DAILY 11/06/18 09/11/24 hydralazine 25 mg tablet 25 mg PO BID 09/30/19 09/11/24 rosuvastatin 20 mg tablet 30 mg PO DAILY 09/30/19 09/11/24 Active folate See Rx Instructions PO DAILY 11/02/20 09/11/24 diltiazem HCl 120 mg 120 mg PO DAILY 01/17/21 09/11/24 tablet,extended release 24 hr cholecalciferol (vitamin D3) 125 125 mcg PO DAILY 02/11/24 09/11/24 mcg (5,000 unit) capsule Previous Rx's Medication Instructions Recorded aspirin 81 mg tablet,delayed 81 mg PO DAILY #30 tabs 03/10/19 release progesterone micronized 100 mg 100 mg PO QAM #90 caps 10/14/23 capsule levothyroxine 125 mcg tablet 125 mcg PO DAILY for disorder of 02/05/24 thyroid gland #90 tabs Tirzepatide See Rx Instructions .Route 04/28/24 .COMPLEX #6 mL tirzepatide (weight loss) 15 15 mg (0.5 mL) SUBCUT QWEEK #2 mL 07/19/24 mg/0.5 mL subcutaneous pen injector estradiol 0.05 mg/24 hr semiweekly 1 patch transdermal 2XW #36 patches 08/13/24 transdermal patch (Catia) Allergies Allergy/AdvReac Type Severity Reaction Status Date / Time nadolol Allergy Severe Difficulty Verified 09/11/24 12:19 Breathing contact metal agent AdvReac Mild Rash Verified 09/11/24 12:19 Review of Systems Hematologic/Lymphatic On Anticoagulants: No Patient History Medical History Varicose veins of both lower extremities with pain Obesity Postmenopausal HRT (hormone replacement therapy) Osteopenia after menopause Foot pain, right 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 Daily consumption of alcohol Tobacco use disorder, mild, in sustained remission Carpal tunnel syndrome on both sides (~2018) Shoulder pain Fractures involving multiple body regions Colon polyps Hyperlipidemia History of ectopic Impingement syndrome of right shoulder Hypothyroid Hypertension Hx of ectopic (~1988) Surgical History Anesthesia History of tonsillectomy History of rotator cuff surgery (~2013) History of colonoscopy History of exploratory laparotomy H/O exploratory laparotomy Family History Father History of heart disease Hypertension Hyperlipidemia Stroke Mother Hyperlipidemia Brother Hypertension Brother Cancer History of heart disease Grandmother No problems noted. Family/Other Hypertension Social History household members: spouse Smoking Status: Former smoker alcohol intake: current Smoking Status: Former smoker alcohol intake frequency: 0-2 drinks per day Exam Initial Vital Signs Initial Vital Signs: Vital Signs Temperature 97.8 F 09/11/24 12:20 Pulse Rate 111 H 09/11/24 12:20 Respiratory Rate 20 09/11/24 12:20 Blood Pressure 223/98 H 09/11/24 12:20 Pulse Oximetry 95 09/11/24 12:20 Oxygen Delivery Method Room Air 09/11/24 12:20 Const: Awake, alert, anxious Cardiac: Tachycardia, regular rhythm RESP: unlabored, clear bilaterally, no wheezing MSK: No edema, full range of motion, pulses equal Skin: Warm, Dry, intact, no rashes Neuro: AO x3, CN II-XII grossly intact, no pronator drift, no ataxia, speech normal, sensation equal bilaterally Course Orders Ordered: ED Orders 09/11/24 12:14 XR chest 1V Stat EKG-12 Lead Stat 09/11/24 12:22 Complete Blood Count AUTO DIFF Stat Comprehensive Metabolic Panel Stat Magnesium Stat PTT Partial Thromboplastin Vasile Stat Prothrombin Time INR Stat Troponin & CK Cardiac Panel Stat 09/11/24 12:24 CT angio head and neck Stat CT head/brain wo con Stat 09/11/24 13:38 MR head/brain wo con Stat 09/11/24 15:07 Urine Drug Screen, Rapid Stat Discontinued Medications Labetalol HCl (Labetalol 20 Mg/4 Ml Syringe) 5 mg IV NOW ONE Stop: 09/11/24 12:44 Last Admin: 09/11/24 14:35 Dose: Not Given Documented By: SB Ondansetron HCl (Ondansetron 4 Mg/2 Ml Inj) 4 mg IV NOW PRN PRN Reason: Nausea And Vomiting Ondansetron HCl (Ondansetron 4 Mg Odt) 4 mg SL NOW PRN PRN Reason: Nausea And Vomiting Vital Signs Vital signs: Vital Signs - 8 hr 09/11/24 12:20 09/11/24 12:25 09/11/24 12:30 Temperature 97.8 F Pulse Rate 111 H 107 H 102 H Respiratory Rate 20 20 12 Blood Pressure 223/98 H 195/89 H 214/87 H Pulse Oximetry 95 98 99 Oxygen Delivery Method Room Air 09/11/24 12:46 09/11/24 13:01 09/11/24 13:30 Temperature Pulse Rate 103 H 97 H 93 H Respiratory Rate 20 22 20 Blood Pressure 208/82 H 159/74 H 168/69 H Pulse Oximetry 98 98 96 Oxygen Delivery Method Room Air 09/11/24 14:01 09/11/24 15:45 Temperature 98.3 F Pulse Rate 91 H 96 H Respiratory Rate 23 16 Blood Pressure 166/71 H 185/68 H Pulse Oximetry 96 97 Oxygen Delivery Method Room Air Room Air MDM - Neuro Symptoms/Deficit Lab Data 09/11/24 12:22 09/11/24 12:22 Labs: Lab Results 09/11/24 09/11/24 Range/Units 12:22 15:07 WBC 9.5 (4.5-11.0) X10^3/uL RBC 4.21 (4.0-5.2) X10^6/uL Hgb 14.4 (12.0-16.0) g/dL Hct 41.6 (36-46) % MCV 98.8 (80-100) fL MCH 34.1 H (26-34) PG MCHC 34.5 (30-36) % RDW 12.9 (11.6-14.8) % Plt Count 278 (150-400) X10^3/uL Neut % (Auto) 59.1 (50-75) % Lymph % (Auto) 32.7 (25-40) % Campbell % (Auto) 7.4 (3-14) % Eos % (Auto) 0.3 L (2-4) % Baso % (Auto) 0.5 (0-2) % Neut # (Auto) 5600 (1700-3520) /uL Lymph # (Auto) 3100 (9850-0063) /uL Campbell # (Auto) 700 (0-900) /uL Eos # (Auto) 0 (0-450) /uL Baso # (Auto) 0 (0-100) /uL PT 10.2 (9.4-12.5) SECONDS INR 0.9 (0.9-1.3) APTT 33 (25.1-36.5) SECONDS Sodium 132 L (137-145) mmol/L Potassium 3.9 (3.4-5.1) mmol/L Chloride 97 L (98-107) mmol/L Carbon Dioxide 24 (22-32) mmol/L BUN 18 H (7-17) mg/dL Creatinine 0.80 (0.52-1.04) mg/dL Estimated GFR > 60 (>60) mL/min BUN/Creatinine Ratio 22.5 H (6-22) Glucose 142 H (80-110) mg/dL Calcium 9.7 (8.4-10.2) mg/dL Magnesium 1.5 L (1.6-2.3) mg/dL Total Bilirubin 0.8 (0.2-1.3) mg/dL AST 37 H (14-36) IU/L ALT 27 (<35) IU/L Alkaline Phosphatase 61 (38-126) U/L Total Creatine Kinase 51 (30-135) U/L Troponin I < 0.012 (0.01-0.034) ng/mL Total Protein 8.5 H (6.3-8.2) g/dL Albumin 5.0 (3.5-5.0) g/dL Globulin 3.5 (1.7-4.1) g/dL Albumin/Globulin Ratio 1.4 (1.0-2.8) U Opiates 300ng/mL cut Negative (Negative) Ur Oxycodone Screen Negative (Negative) Urine Methadone Screen Negative (Negative) Ur Barbiturates Screen Negative (Negative) U Tricyclic Antidepress Negative (Negative) Ur Phencyclidine Scrn Negative (Negative) Ur Amphetamines Screen Negative (Negative) U Methamphetamines Scrn Negative (Negative) Ur MDMA Scrn (Ecstasy) Negative (Negative) U Benzodiazepines Scrn Negative (Negative) Urine Cocaine Screen Negative (Negative) U Marijuana (THC) Screen Negative (Negative) Urine pH Normal (Normal) Urine Specific [place] Normal (Normal) Ur Creatinine Normal (Normal) Point of Care Testing Glucose POC 152 Urine Dip Bedside Urine Glucose Negative Bedside Urine Bilirubin - Negative Bedside Urine Ketone - Negative Urine Specific [place] 1.005 Bedside Urine Occult Blood +/- Bedside Urine pH 6.5 Bedside Urine Protein - Negative Bedside Urine Urobilinogen - Negative Bedside Urine Nitrite - Negative Bedside Urine Leukocytes - Negative Esterase Imaging Data CT scan - head: Radiologist's Impression: PROCEDURE: CT HEAD/BRAIN WO CON INDICATIONS: R EYE BLURRED VISION X 30 MIN AGO TECHNIQUE: Noncontrast 4.5 mm thick angled axial sections acquired from the foramen magnum to the vertex, with coronal and sagittal reformats. For radiation dose reduction, the following was used: automated exposure control, adjustment of mA and/or kV according to patient size. COMPARISON: None. FINDINGS: Image quality: Diagnostic. CSF spaces: Basal cisterns are patent. No extra-axial fluid collections. The ventricles are symmetric in size and shape. Brain: No intracranial bleeds or masses. There is cerebral volume loss for age, with resultant ventricular and sulcal prominence. There are periventricular and deep white matter chronic small vessel ischemic changes. There is intracranial internal carotid artery atherosclerosis. Skull and face: Calvarium and visualized facial bones appear intact, without suspicious lesions. Sinuses: Visualized sinuses and mastoids are clear. IMPRESSION: No acute intracranial pathology. Dictated by: Randy Rice M.D. on 09/11/2024 at 13:16 Approved by: Randy Rice M.D. on 09/11/2024 at 13:21 PROCEDURE: MR HEAD/BRAIN WO CON INDICATIONS: R EYE VISUAL FIELD DISTURBANCE X 2 HRS TECHNIQUE: Non-contrast axial T1 spin echo, axial T2 fast spin echo, sagittal and axial FLAIR, coronal T2 fast spin echo, axial gradient echo, axial diffusion and ADC through the brain. COMPARISON: None. FINDINGS: Image quality: Excellent. CSF spaces: Ventricles appear symmetric in size and shape. Basal cisterns are patent. No extra-axial fluid collections. Brain: No intracranial bleeds or mass effects. There is cerebral volume loss for age. There are periventricular and deep white matter chronic small vessel ischemic changes. There is a more pronounced T2/FLAIR hyperintensity within the right posterior frontal lobe (7/19). Brainstem appears normal. Diffusion-weighted images show no acute infarct. No chronic ischemic insults. Normal intravascular flow voids are present. Skull and face: Calvarial bone marrow is normal in signal. Orbits are normal. Sinuses: Sinuses and mastoids are clear. IMPRESSION: No acute or subacute infarct. No definite acute intracranial abnormalities. There is a more pronounced T2/FLAIR hyperintensity within the right posterior frontal lobe. While this is likely secondary to chronic microvascular ischemic changes, it is more pronounced than other foci and other etiologies are not excluded. Consider follow-up MRI brain in 3-6 months with and without contrast. Dictated by: Randy Rice M.D. on 09/11/2024 at 14:57 Approved by: Randy Rice M.D. on 09/11/2024 at 15:01 CTA - brain/neck: Radiologist's Impression: PROCEDURE: CT ANGIO HEAD AND NECK INDICATIONS: R EYE BLURRED VISION X 30 MIN AGO TECHNIQUE: After the administration of intravenous contrast, 1 mm thick sections acquired from the aortic arch through the [place]. 3-dimensional [id number] (MIP) and/or volume rendering reformats were acquired of the central intracranial vasculature and neck separately. For radiation dose reduction, the following was used: automated exposure control, adjustment of mA and/or kV according to patient size. COMPARISON: None. FINDINGS: Image quality: Diagnostic. BRAIN: Please refer to same day CT of the head. HEAD CT ANGIOGRAPHY: Anterior circulation: Intracranial internal carotid arteries demonstrate atherosclerotic calcifications and areas of mild stenosis. The flow within the paired anterior cerebral arteries is normal and symmetric. The flow within the middle cerebral arteries is normal and symmetric. The anterior communicating artery is seen. No aneurysms are seen. Posterior circulation: Visualized portions of the vertebral arteries demonstrate normal caliber, the left vertebral artery is dominant and forms the basilar. The right vertebral artery terminates into the PICA. origin of the right [employer]. Flow within the posterior cerebral arteries is normal and symmetric. No aneurysms are seen. NECK CT ANGIOGRAPHY: Carotid system: The great vessels demonstrate a conventional anatomy as they arise from the aortic arch. The origins of the common carotid arteries appear patent. The common carotid arteries demonstrate normal caliber and courses. The bifurcation regions demonstrate coarse calcifications with approximately 50-69% stenosis of the proximal ICAs bilaterally. The internal carotid arteries demonstrate normal calibers and courses. Posterior circulation: The origins of the vertebral arteries both appear widely patent. The more superior extracranial portions of both vertebral arteries also demonstrate normal courses and calibers. The left vertebral is dominant and forms the basilar artery. The right vertebral artery terminates into the PICA. Soft tissues: Visualized neck soft tissues demonstrate no suspicious abnormalities. Bones: No suspicious bony lesions. Visualized cervical spine appears normally aligned. IMPRESSION: No significant intracranial arterial abnormality is seen. Atherosclerotic vascular calcifications of the bilateral carotid bifurcations with 50-69% stenosis of the proximal ICAs bilaterally. Otherwise, no significant arterial abnormalities within neck. Any quantitative measurements of stenosis were performed using NASCET criteria. Dictated by: Randy Rice M.D. on 09/11/2024 at 13:23 Approved by: Randy Rice M.D. on 09/11/2024 at 13:26 [facility] Narrative Medical decision making narrative: Anxious but nontoxic patient with brief episode of visual disturbance. Currently vision is back to baseline. She states that she feels overall shaky, but on exam she has no focal deficits. Noted to be tachycardic and hypertensive - patient does appear visibly anxious on exam. IV labatalol ordered for HTN, however it did not need to be given - after patient situated in ED bed heart rate and blood pressure dropped to within patient's normal limits. Laboratory work, CT imaging ordered. Laboratory work reviewed, no significant abnormalities identified. CT angio of the head and neck shows carotid artery calcifications 50-69%. This is slight progression compared to previous CT imaging obtained from 2019, however not critically stenosed. Spoke with MRI department, they have availability to fit patient in for noncontrast MRI. Patient has not had any recurrence of symptoms since arrival to the emergency department. MRI negative for acute or subacute stroke. There is a T2 FLAIR hyperintensity in the right posterior frontal lobe. Likely secondary to chronic microvascular changes. Patient informed of all lab and imaging findings. Recommended ophthalmology and close PCP follow up. Included radiology recommendations for repeat CT imaging with and without contrast in 3-6 months. ED return precautions discussed at bedside. Patient expressed understanding of the plan and is in agreement at this time. All questions answered at the time of discharge. Discharge Plan Departure Patient Disposition: Home Clinical Impression: Visual disturbance Instructions: DI for Visual Field Disturbances Activity Restrictions/Additional Instructions: Your imaging today did not show any sign of acute stroke. We ordered a noncontrast head CT, a CT angiography of your head and neck, and an MRI of your brain. There was no evidence that you have had a stroke in recent history. I do not know why you had this visual field disturbance today. Radiology did recommend that you have a repeat MRI with and without contrast in 3-6 months, but this can be scheduled through your primary care doctor. Continue to take all medications as prescribed. 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 cholecalciferol (vitamin D3) 125 mcg (5,000 unit) capsule 125 mcg PO DAILY Tirzepatide See Rx Instructions .ROUTE .COMPLEX Qty: 6 5RF Rx Instructions: 25mg/mL Inject 7.5mg SQ weekly x4 weeks, increase as tolerated to 10mg SQ weekly x4 weeks as tolerated, increase to 12.5mg SQ weekly x4 weeks as tolerated, then increase to 15mg SQ weekly as tolerated thereafter; tirzepatide (weight loss) 15 mg/0.5 mL pen injector 15 mg SUBCUT QWEEK Qty: 2 2RF losartan 100 mg Tablet 100 mg PO DAILY aspirin 81 mg Tablet,Delayed Release (/Ec) 81 mg PO DAILY Qty: 30 0RF Referrals: Rubens Smart MD [Primary Care Provider] - Stand Alone Forms: Patient Portal/API/Survey
[2024-09-11 12:33] LABS: Add Manual Diff / Slide Review NO; Basophils Absolute Auto 0 /uL (0-100); Basophils Percent Auto 0.5 % (0-2); Eosinophils Absolute Auto 0 /uL (0-450); Eosinophils Percent Auto 0.3 % (2-4); Hematocrit 41.6 % (36-46); Hemoglobin 14.4 g/dL (12.0-16.0); Lymphocytes Absolute Auto 3100 /uL (1100-4500); Lymphocytes Percent Auto 32.7 % (25-40); Mean Corpuscular HGB Conc 34.5 % (30-36); Mean Corpuscular Hemoglobin 34.1 PG (26-34); Mean Corpuscular Volume 98.8 fL (80-100); Monocytes Absolute Auto 700 /uL (0-900); Monocytes Percent Auto 7.4 % (3-14); Neutrophils Absolute Auto 5600 /uL (1500-7000); Neutrophils Percent Auto 59.1 % (50-75); Platelet Count 278 X10^3/uL (150-400); Red Blood Cell Count 4.21 X10^6/uL (4.0-5.2); Red Cell Distribution Width 12.9 % (11.6-14.8); White Blood Cell Count 9.5 X10^3/uL (4.5-11.0)
[2024-09-11 12:42] LABS: INR 0.9 (0.9-1.3); Prothrombin Time 10.2 SECONDS (9.4-12.5)
[2024-09-11 12:45] LABS: PTT Partial Thromboplastin Tim 33 SECONDS (25.1-36.5)
[2024-09-11 12:46] LABS: Alanine Aminotransferase 27 IU/L (<35); Albumin Globulin Ratio 1.4 (1.0-2.8); Alkaline Phosphatase 61 U/L (38-126); Aspartate Aminotransferase 37 IU/L (14-36); BUN Creatinine Ratio 22.5 (6-22); Bilirubin Total 0.8 mg/dL (0.2-1.3); Blood Urea Nitrogen 18 mg/dL (7-17); Calcium 9.7 mg/dL (8.4-10.2); Carbon Dioxide 24 mmol/L (22-32); Chloride 97 mmol/L (98-107); Creatine Kinase 51 U/L (30-135); Estimated Glomerular Filt Rate > 60 mL/min (>60); Globulin 3.5 g/dL (1.7-4.1); Glucose 142 mg/dL (80-110); HEMOLYSIS < 15 (0-50); Magnesium 1.5 mg/dL (1.6-2.3); Potassium 3.9 mmol/L (3.4-5.1); Sodium 132 mmol/L (137-145); Total Protein 8.5 g/dL (6.3-8.2)
[2024-09-11 12:57] LABS: Troponin I < 0.012 ng/mL (0.01-0.034)
--- NOTE | 2024-09-11 13:38 | DI.MRI.S_ITS ---
PROCEDURE: MR HEAD/BRAIN WO CON INDICATIONS: R EYE VISUAL FIELD DISTURBANCE X 2 HRS TECHNIQUE: Non-contrast axial T1 spin echo, axial T2 fast spin echo, sagittal and axial FLAIR, coronal T2 fast spin echo, axial gradient echo, axial diffusion and ADC through the brain. COMPARISON: None. FINDINGS: Image quality: Excellent. CSF spaces: Ventricles appear symmetric in size and shape. Basal cisterns are patent. No extra-axial fluid collections. Brain: No intracranial bleeds or mass effects. There is cerebral volume loss for age. There are periventricular and deep white matter chronic small vessel ischemic changes. There is a more pronounced T2/FLAIR hyperintensity within the right posterior frontal lobe (7/19). Brainstem appears normal. Diffusion-weighted images show no acute infarct. No chronic ischemic insults. Normal intravascular flow voids are present. Skull and face: Calvarial bone marrow is normal in signal. Orbits are normal. Sinuses: Sinuses and mastoids are clear. IMPRESSION: No acute or subacute infarct. No definite acute intracranial abnormalities. There is a more pronounced T2/FLAIR hyperintensity within the right posterior frontal lobe. While this is likely secondary to chronic microvascular ischemic changes, it is more pronounced than other foci and other etiologies are not excluded. Consider follow-up MRI brain in 3-6 months with and without contrast. Dictated by: Randy Rice M.D. on 09/11/2024 at 14:57 Approved by: Randy Rice M.D. on 09/11/2024 at 15:01
[2024-09-11 15:26] LABS: Ur Creatinine Normal (Normal); Ur Specific Gravity Normal (Normal); Urine Amphetamines Negative (Negative); Urine Barbiturates Negative (Negative); Urine Benzodiazepines Negative (Negative); Urine Cocaine Negative (Negative); Urine MDMA Negative (Negative); Urine Methadone Negative (Negative); Urine Methamphetamines Negative (Negative); Urine Opiates Negative (Negative); Urine Oxycodone Negative (Negative); Urine Phencyclidine Negative (Negative); Urine THC Negative (Negative); Urine Tricyclic Antidepressant Negative (Negative); Urine pH Normal (Normal)
== END 2024-09-11 15:57 | disposition home or self-care (01) ==
PROVIDERS: Emergency Provider Emergency Medicine; Family Provider Nurse Practitioner; PCP Family Medicine
DX: H53.9 Unspecified visual disturbance (principal); I10 Essential (primary) hypertension; Z86.73 Personal history of transient ischemic attack (TIA), and cerebral infarction without residual deficits; E03.9 Hypothyroidism, unspecified; E78.5 Hyperlipidemia, unspecified; R00.0 Tachycardia, unspecified
CPT/HCPCS: 36415; 70450; 70496; 70498; 70551; 71045; 80053; 80305; 81003; 82550; 82962; 83735; 84484; 85025; 85610; 85730; 93005; 99284; Q9967

== ENCOUNTER → 2024-10-11 11:01 | Outpatient (CLI) | payer MEDICARE, SELFPAY ==
[2024-02-11 11:42] VITALS: BMI 25.4
--- NOTE | 2024-10-11 11:07 | DI.US.S_ITS ---
PROCEDURE: US THYROID INDICATIONS: year follow-up abn thyroid us TECHNIQUE: Real-time scanning was performed of the thyroid gland, with image documentation. COMPARISON: [facility], [place], US THYROID, 10/08/2022, 11:37. FINDINGS: Thyroid: Right lobe measures 3.7 x 1.3 x 1.2 cm. Left lobe measures 3.1 x 1.2 x 1.1 cm. Isthmus is 0.3 cm thick. Echotexture is homogeneous. Again seen is a right mid thyroid nodule measuring 1 x 0.7 x 0.9 cm, similar in size compared to prior. It is solid and hyperechoic. Three points. TR 3. IMPRESSION: Stable small right thyroid nodule, using TI-RADS consensus guidelines, no dedicated follow-up is necessary. ACR TI-RADS definitions and recommendations: TI-RADS 1 (benign): 0 points. FNA not needed. TI-RADS 2 (not suspicious): 2 points. FNA not needed. TI-RADS 3: 3 points. * FNA if 2.5 cm or larger, follow up if 1.5 cm or larger (at 1, 3, and 5 years). TI-RADS 4: 4-6 points. * FNA if 1.5 cm or larger, follow up if 1 cm or larger (at 1, 2, 3, and 5 years). TI-RADS 5: 7 points or more. * FNA if 1 cm or larger, follow up if 0.5 cm or larger (every year for 5 years). Dictated by: Fausto Metcalf M.D. on 10/11/2024 at 14:56 Approved by: Fausto Metcalf M.D. on 10/11/2024 at 15:01
== END ==
PROVIDERS: Family Provider Nurse Practitioner; PCP Family Medicine; Referring Provider Family Medicine; Visit Provider Family Medicine
DX: E03.9 Hypothyroidism, unspecified (principal); E04.1 Nontoxic single thyroid nodule
CPT/HCPCS: 76536

== ENCOUNTER → 2024-11-04 09:14 | Outpatient (CLI) | payer MEDICARE, SELFPAY ==
[2024-02-11 11:42] VITALS: BMI 25.4
--- NOTE | 2024-11-04 09:15 | DI.ECHO.S_ITS ---
[facility] : : [address] : : [place] : : [id number] : : Phone: [phone] Echocardiogram Report + + :Name: JESSIKA RIZVI Study Date: 11/04/2024 Height: 64 in : :[facility] ReadingLocation: Weight: 160 lb : : Gender: Female BSA: 1.8 m2 : :: 1955 Age: 69 yrs BP: 148/64 mmHg: :Reason For Study: TIA : :Ordering Physician: EULALIO, : :BYRON Performed By: Antonia Blakely : :Referring: BYRON TSAI : + + Interpretation Summary The left ventricle is normal in size and wall thickness. The left ventricular ejection fraction is normal. The ejection fraction is estimated to be 60-65%. The right ventricle is borderline dilated. The right ventricular systolic function is normal. Injection of contrast documented no interatrial shunt. There is mild mitral regurgitation. Aortic valve tricuspid. There is mildly reduced leaflet mobility. The peak aortic velocity is 3.0 m/sec. The aortic valve mean gradient is 22 mmHg. The calculated aortic valve area is 1.3 cm2. There is mild to moderate aortic stenosis. Compared to the prior echo study, there has been an increase in the severity of aortic stenosis. There is mild tricuspid regurgitation. Compared to the prior echo exam, there has been no change in TR severity. The right ventricular systolic pressure is estimated to be at least 37 mmHg based on an estimated right atrial pressure of 8 mm Hg. Compared to the prior echo exam, there has been an increase in the severity of pulmonary hypertension. Procedure: A two-dimensional transthoracic echocardiogram with color flow and Doppler was performed. The study quality was technically adequate. Comparison is made with the echocardiogram of 06/12/2022. A saline contrast injection was performed to assess for cardiac shunting. The injection was performed through an intravenous line in the left arm. The patient was in sinus rhythm with heart rates between 71-80 bpm during the exam. Left Ventricle: The left ventricle is normal in size and wall thickness. There is no thrombus. The ejection fraction is estimated to be 60-65%. The left ventricular ejection fraction is normal. There are no focal wall motion abnormalities. Diastolic parameters suggest a relaxation abnormality of the left ventricle, consistent with probable normal filling pressures. Right Ventricle: The right ventricle is borderline dilated. The right ventricular systolic function is normal. Atria: The left atrium is moderately dilated. The left atrium has mildly decreased in size since the prior echo exam. Right atrial size is normal. There is no Doppler evidence for an interatrial shunt. Injection of contrast documented no interatrial shunt. Mitral Valve: The mitral valve leaflets are slightly calcified. There is mild mitral annular calcification. The mitral valve leaflets appear to open well. There is mild mitral regurgitation. Aortic Valve: The aortic valve is moderately calcified. There is mildly reduced leaflet mobility. The aortic valve is trileaflet. There is mild to moderate aortic stenosis. The peak aortic velocity is 3.0 m/sec. The aortic valve mean gradient is 22 mmHg. The calculated aortic valve area is 1.3 cm2. Compared to the prior echo study, there has been an increase in the severity of aortic stenosis. No aortic regurgitation is present. Tricuspid Valve: The tricuspid valve leaflets are thin and pliable. There is mild tricuspid regurgitation. The right ventricular systolic pressure is estimated to be at least 37 mmHg based on an estimated right atrial pressure of 8 mm Hg. Compared to the prior echo exam, there has been no change in TR severity. Compared to the prior echo exam, there has been an increase in the severity of pulmonary hypertension. Pulmonic Valve: The pulmonic valve leaflets are thin and pliable; valve motion is normal. There is no pulmonic valvular regurgitation. Great Vessels: The aortic root is normal size. The dimensions of the ascending aorta are normal. The IVC is dilated (diameter is greater than 2.1 cm) yet it collapses greater than 50% with a sniff. This suggests a right atrial pressure of 8 mm Hg. Pericardium/ Pleura There is no pericardial effusion. There is no pleural effusion. MMode/2D Measurements & Calculations LVIDd: 4.8 cm LVOT diam: 2.2 cm LVIDs: 3.1 cm Ao root diam: 2.6 cm FS: 34.1 % asc Aorta Diam: 3.3 cm IVSd: 0.86 cm Ao Arch Diam (Prox Trans): 2.3 cm LVPWd: 0.95 cm LV willard. diameter/BSA (cm/m^2): 2.7 LV sys. diameter/BSA (cm/m^2): 1.8 LA A2 area: 20.8 cm2 RA long axis: 5.4 cm LA A4 area: 22.4 cm2 RA area: 18.7 cm2 LA length (vol): 5.5 cm RA vol: 55.2 ml LA vol: 71.4 ml RA : 31.0 ml/m2 LA vol index: 40.2 ml/m2 IVC diam: 2.1 cm RVD1 (basal): 4.3 cm RVD2 (mid): 3.1 cm TAPSE: 3.5 cm Doppler Measurements & Calculations Ao V2 max: 302.1 cm/sec LVOT Max Hakan: 106.2 cm/sec Ao V2 mean: 215.3 cm/sec LV V1 max P.5 mmHg Ao max P.2 mmHg LV V1 VTI: 25.3 cm Ao mean P.4 mmHg CLOVER(I,D): 1.3 cm2 Ao V2 VTI: 71.9 cm CLOVER(V,D): 1.3 cm2 sev ratio: 0.35 CLOVER indexed to BSA (cm^2/m^2): 0.76 MV E max hakan: 95.8 cm/sec TR max hakan: 269.6 cm/sec MV A max hakan: 106.5 cm/sec TR max P.1 mmHg MV E/A: 0.90 PA V2 max: 116.9 cm/sec Med Peak E' Hakan: 8.7 cm/sec PA V2 mean: 86.0 cm/sec E/E' med: 11.0 PA mean P.2 mmHg Lat Peak E' Hakan: 13.1 cm/sec PA pr(Accel): 31.0 mmHg E/E' lat: 7.3 E/e' average: 9.2 MV dec time: 0.26 sec Pulm A Revs Hakan: 35.3 cm/sec SV(LVOT): 96.7 ml Pulm A Revs Dur: 0.09 sec Reading Physician:04:44 PM
== END ==
PROVIDERS: Family Provider Nurse Practitioner; PCP Family Medicine; Referring Provider Internal Medicine Cardiovascular Disease; Visit Provider Internal Medicine Cardiovascular Disease
DX: G45.9 Transient cerebral ischemic attack, unspecified (principal); I08.3 Combined rheumatic disorders of mitral, aortic and tricuspid valves
CPT/HCPCS: 93306

== ENCOUNTER → 2025-02-03 11:04 | Outpatient (CLI) | payer MEDICARE, SELFPAY ==
[2024-02-11 11:42] VITALS: BMI 25.4
[2025-02-03 12:18] LABS: Alanine Aminotransferase 20 IU/L (<35); Albumin 4.8 g/dL (3.5-5.0); Albumin Globulin Ratio 1.9 (1.0-2.8); Alkaline Phosphatase 49 U/L (38-126); Aspartate Aminotransferase 29 IU/L (14-36); BUN Creatinine Ratio 16.9 (6-22); Bilirubin Total 0.8 mg/dL (0.2-1.3); Blood Urea Nitrogen 11 mg/dL (7-17); Calcium 9.7 mg/dL (8.4-10.2); Carbon Dioxide 25 mmol/L (22-32); Chloride 93 mmol/L (98-107); Cholesterol 201 mg/dL (140-199); Estimated Glomerular Filt Rate > 60 mL/min (>60); Globulin 2.5 g/dL (1.7-4.1); Glucose 110 mg/dL (70-99); HEMOLYSIS < 15 (0-50); Hemoglobin A1C% w Est Avg Glu 4.9 % (4.0-6.0); Magnesium 1.8 mg/dL (1.6-2.3); Potassium 4.6 mmol/L (3.4-5.1); Sodium 126 mmol/L (137-145); Total Protein 7.3 g/dL (6.3-8.2); Triglycerides 63 mg/dL (35-150)
[2025-02-03 12:34] LABS: HDL Cholesterol 128 mg/dL (40-60); LDL Cholesterol Calculated 60 mg/dL (<100)
[2025-02-03 12:49] LABS: TSH w/ Reflex to FT4 1.61 uIU/mL (0.47-4.68)
[2025-02-04 04:36] LABS: CRP, High Sensitivity 0.64 mg/L (0.00-3.00)
== END ==
PROVIDERS: PCP Family Medicine; Referring Provider Nurse Practitioner; Visit Provider Nurse Practitioner
DX: I10 Essential (primary) hypertension (principal); E06.3 Autoimmune thyroiditis; I83.813 Varicose veins of bilateral lower extremities with pain; Z79.890 Hormone replacement therapy; E78.5 Hyperlipidemia, unspecified; G45.9 Transient cerebral ischemic attack, unspecified
CPT/HCPCS: 36415; 80053; 80061; 83036; 83735; 84443; 86140

== ENCOUNTER → 2025-02-07 10:58 | Outpatient (CLI) | payer MEDICARE, SELFPAY ==
[2024-02-11 11:42] VITALS: BMI 25.4
[2025-02-07 11:33] LABS: Sodium 128 mmol/L (137-145)
== END ==
LOC: LAB 11:00
PROVIDERS: PCP Family Medicine; Referring Provider Family Medicine; Visit Provider Family Medicine
DX: E78.2 Mixed hyperlipidemia (principal); I10 Essential (primary) hypertension; G45.9 Transient cerebral ischemic attack, unspecified
CPT/HCPCS: 36415; 84295

== ENCOUNTER → 2025-02-23 11:40 | Outpatient (CLI) | payer MEDICARE, SELFPAY ==
[2024-02-11 11:42] VITALS: BMI 25.4
--- NOTE | 2025-02-23 11:42 | DI.MG.S_ITS ---
MM screening mammo BI: 02/23/2025. BI-RADS: 1 CLINICAL: 69-year old female for bilateral screening mammogram. Tyrer-Cuzick lifetime risk of 10.7%. Current reported family history of breast cancer: mother. PRIOR EXAMS 01/08/2024, 01/27/2023, 01/06/2023, 01/10/2022, 12/26/2021. MAMMOGRAPHY TECHNIQUE: 2D and 3D (tomosynthesis) digital mammographic views obtained, with additional images as needed for full coverage. Current study was also evaluated with a Computer Aided Detection (CAD) system. DENSITY C. The breasts are heterogeneously dense, which may obscure small masses. MAMMOGRAPHY FINDINGS Bilateral: No suspicious mass, asymmetry, microcalcification, or other abnormality seen. No significant change from comparison. IMPRESSION: * No evidence of malignancy. RECOMMENDATIONS Bilateral * Annual screening mammography. OVERALL ASSESSMENT CATEGORY BI-RADS-1: Negative. The [employer] recommends annual screening mammography beginning at age 40 for women with average risk of breast cancer. PRELIMINARILY ELECTRONICALLY SIGNED: Claudia Rogel M.D. on 02/23/2025 at 04:50:28 PM PT ELECTRONICALLY SIGNED: Claudia Rogel M.D. on 02/25/2025 at 05:20:45 PM PT Interpreting Station ID: [id number]
== END ==
PROVIDERS: PCP Family Medicine; Referring Provider Family Medicine; Visit Provider Family Medicine
DX: Z12.31 Encounter for screening mammogram for malignant neoplasm of breast (principal); Z80.3 Family history of malignant neoplasm of breast; R92.333 Mammographic heterogeneous density, bilateral breasts
CPT/HCPCS: 77063; 77067

== ENCOUNTER → 2025-06-30 10:27 | Outpatient (CLI) | payer MEDICARE, SELFPAY ==
[2024-02-11 11:42] VITALS: BMI 25.4
--- NOTE | 2025-06-30 10:29 | DI.ECHO.S_ITS ---
[facility] : : [address] : : [place] : : [id number] : : Phone: [phone] Echocardiogram Report + + :Name: JESSIKA RIZVI Study Date: 06/30/2025 Height: 64 in : :[facility] ReadingLocation: Weight: 158 lb : : Gender: Female BSA: 1.8 m2 : :: 1955 Age: 70 yrs BP: 150/70 mmHg: :Reason For Study: Dizziness : :Ordering Physician: EULALIO, : :BYRON Performed By: Irvin Delvalle : :Referring: BYRON TSAI : + + Interpretation Summary The left ventricle is normal in size. The ejection fraction is estimated to be 65-70%. The right ventricle is normal in size and function. The aortic valve is trileaflet. There is moderately reduced leaflet mobility. The peak aortic velocity is 3.3 m/sec. The aortic valve mean gradient is 24 mmHg. The calculated aortic valve area is 1.2 cm2. sev ratio: 0.29 The peak aortic velocity on the previous exam was 3.0 m/sec. There is moderate aortic stenosis. No significant change. There is mild tricuspid regurgitation. Compared to the prior echo exam, there has been no change in TR severity. The right ventricular systolic pressure is estimated to be at least 31 mmHg based on an estimated right atrial pressure of 3 mm Hg. There is aortic root sclerosis/calcification. Procedure: A two-dimensional transthoracic echocardiogram with color flow and Doppler was performed. The study quality was technically adequate. Comparison is made with the echocardiogram of 11/04/2024. The patient was in normal sinus rhythm during the exam. Left Ventricle: The left ventricle is normal in size. Left ventricular wall thickness is at the upper limits of normal. There is no thrombus. Left ventricular systolic function is normal. The ejection fraction is estimated to be 65-70%. There are no focal wall motion abnormalities. Grade I diastolic dysfunction with normal left atrial pressure. Right Ventricle: The right ventricle is normal in size and function. Atria: The left atrium is moderately dilated. There has been no significant change since the previous study. Right atrial size is normal. There is no Doppler evidence for an interatrial shunt. Mitral Valve: There is mild mitral annular calcification. The mitral valve leaflets appear to open well. There is no mitral valve stenosis. There is mild mitral regurgitation. Aortic Valve: The aortic valve is trileaflet. The aortic valve is moderately calcified. There is moderately reduced leaflet mobility. There is moderate aortic stenosis. The calculated aortic valve area is 1.2 cm2. The peak aortic velocity is 3.3 m/sec. The aortic valve mean gradient is 24 mmHg. sev ratio: 0.29. The peak aortic velocity on the previous exam was 3.0 m/sec. There is trace aortic regurgitation. Tricuspid Valve: The tricuspid valve is normal. There is mild tricuspid regurgitation. The right ventricular systolic pressure is estimated to be at least 31 mmHg based on an estimated right atrial pressure of 3 mm Hg. Compared to the prior echo exam, there has been no change in TR severity. Pulmonic Valve: The pulmonic valve is not well seen, but is grossly normal. There is trace pulmonic regurgitation. Great Vessels: The aortic root is not well visualized but is probably normal size. There is aortic root sclerosis/calcification. The ascending aorta is normal in size. The aortic arch could not be visualized. The pulmonary artery is normal size. The IVC is of normal diameter and collapses greater than 50% with a sniff. This suggests a low right atrial pressure of 3 mm Hg. Pericardium/ Pleura There is no pericardial effusion. MMode/2D Measurements & Calculations LVIDd: 4.8 cm LVOT diam: 2.2 cm LVIDs: 3.1 cm Ao root diam: 2.6 cm FS: 36.3 % asc Aorta Diam: 3.0 cm IVSd: 0.96 cm LVPWd: 1.0 cm LV willard. diameter/BSA (cm/m^2): 2.7 LV sys. diameter/BSA (cm/m^2): 1.7 LA A2 area: 23.6 cm2 RA long axis: 5.6 cm LA A4 area: 23.3 cm2 RA area: 14.3 cm2 LA length (vol): 6.0 cm RA vol: 31.3 ml LA vol: 77.5 ml RA : 17.7 ml/m2 LA vol index: 43.8 ml/m2 IVC diam: 2.0 cm RVD1 (basal): 3.1 cm RVD2 (mid): 2.5 cm TAPSE: 2.6 cm Doppler Measurements & Calculations Ao V2 max: 325.5 cm/sec LVOT Max Hakan: 101.1 cm/sec Ao V2 mean: 227.8 cm/sec LV V1 max P.1 mmHg Ao max P.4 mmHg LV V1 VTI: 22.6 cm Ao mean P.0 mmHg CLOVER(I,D): 1.1 cm2 Ao V2 VTI: 78.7 cm CLOVER(V,D): 1.2 cm2 sev ratio: 0.29 CLOVER indexed to BSA (cm^2/m^2): 0.60 MV E max hakan: 101.6 cm/sec TR max hakan: 265.7 cm/sec MV A max hakan: 121.3 cm/sec TR max P.2 mmHg MV E/A: 0.84 PA V2 max: 136.5 cm/sec Med Peak E' Hakan: 8.2 cm/sec PA V2 mean: 92.9 cm/sec E/E' med: 12.4 PA mean P.9 mmHg Lat Peak E' Hakan: 8.5 cm/sec PA pr(Accel): 34.0 mmHg E/E' lat: 12.0 E/e' average: 12.2 MV dec time: 0.21 sec SV(LVOT): 84.0 ml Reading Physician:01:46 PM
[2025-06-30 13:53] LABS: Blood Urea Nitrogen 24 mg/dL (7-17); Calcium 9.6 mg/dL (8.4-10.2); Carbon Dioxide 25 mmol/L (22-32); Chloride 96 mmol/L (98-107); Estimated Glomerular Filt Rate > 60 mL/min (>60); Glucose 118 mg/dL (70-99); HEMOLYSIS < 15 (0-50); Potassium 4.5 mmol/L (3.4-5.1); Sodium 131 mmol/L (137-145)
[2025-07-04 17:10] LABS: Osmolality, Serum 280 mOsmol/kg (280-301)
== END ==
PROVIDERS: PCP Family Medicine; Referring Provider Internal Medicine Cardiovascular Disease; Visit Provider Internal Medicine Cardiovascular Disease
DX: I08.3 Combined rheumatic disorders of mitral, aortic and tricuspid valves (principal); R42 Dizziness and giddiness; E87.1 Hypo-osmolality and hyponatremia; I70.0 Atherosclerosis of aorta
CPT/HCPCS: 80048; 83930; 93306

== ENCOUNTER → 2025-07-11 12:07 | Outpatient (CLI) | payer MEDICARE, SELFPAY ==
[2024-02-11 11:42] VITALS: BMI 25.4
--- NOTE | 2025-07-11 12:09 | DI.MRI.S_ITS ---
PROCEDURE: MR SHOULDER RT WO/W CON INDICATIONS: eval mass in axillary TECHNIQUE: Noncontrast oblique coronal T1 spin echo and T2 fast spin echo with fat saturation, oblique sagittal T1 spin echo and T2 fast spin echo with fat saturation, axial T1 spin echo and T2 fast spin echo with fat saturation through the shoulder. Post- contrast oblique coronal, oblique sagittal, and axial T1 spin echo with fat saturation through the shoulder. COMPARISON: [facility], CR, XR SHOULDER LT 2+ VIEWS, 05/16/2025, 15:01. FINDINGS: Image quality: Excellent. Rotator cuff: Mild tendinosis of the supraspinatus and infraspinatus. There is multifocal, high-grade, articular sided tear at the myotendinous junction, of the posterior supraspinatus (08:16). The infraspinatus is unremarkable. The teres minor is unremarkable. Mild tendinosis of the subscapularis, without tear. There is a 5 mm ganglion cysts along the myotendinous junction of the subscapularis (10:21). No muscle edema or fatty atrophy. Bones and bursae: No significant degenerative changes of the acromioclavicular joint. Type 1 acromion. No os acromiale. Mild subacromial/subdeltoid bursitis. Suture anchor at the anterior greater tuberosity. No acute fracture. Marrow signal is normal for age. No focal chondral defect of the glenohumeral articulation. Capsule and soft tissues: Anterior superior labral tear. No paralabral cyst. The extra-articular biceps tendon is unremarkable. The intra-articular biceps tendon is not visualized, favoring postprocedural. Trace glenohumeral effusion. No intra-articular body. Pain marker is placed at the anterior shoulder, about the level of the suture anchor. No suspicious enhancing soft tissue mass. IMPRESSION: 1. Patient is likely status post biceps tenodesis. The pain marker is placed at the level of the suture anchor. No suspicious enhancing soft tissue mass. 2. Multifocal high-grade tear at the posterior supraspinatus. 3. 5 mm ganglion cyst within the subscapularis. 4. The intra-articular biceps tendon is not visualized, favoring postprocedural. Dictated by: Sharda Hernandez M.D. on 07/11/2025 at 14:30 Approved by: Sharda Hernandez M.D. on 07/11/2025 at 14:44
== END ==
LOC: MRI 12:08
PROVIDERS: PCP Family Medicine; Referring Provider Family Medicine; Visit Provider Orthopaedic Surgery
DX: S43.431A Superior glenoid labrum lesion of right shoulder, initial encounter (principal); M75.111 Incomplete rotator cuff tear or rupture of right shoulder, not specified as traumatic; M67.411 Ganglion, right shoulder; M75.51 Bursitis of right shoulder; R22.31 Localized swelling, mass and lump, right upper limb
CPT/HCPCS: 73223; A9579

== ENCOUNTER → 2025-07-21 13:17 | Outpatient (CLI) | payer MEDICARE, SELFPAY ==
[2024-02-11 11:42] VITALS: BMI 25.4
--- NOTE | 2025-07-21 13:19 | DI.US.S_ITS ---
US breast RT limited, MM diagnostic mammo unilat RT: 07/21/2025 BI-RADS: 3 CLINICAL: 70-year old female for right diagnostic mammogram and right diagnostic breast ultrasound. Tyrer-Cuzick lifetime risk of 10.1%. Current reported family history of breast cancer: mother. The patient reports a palpable abnormality (1 month) in the right axilla. PRIOR EXAMS Mammogram(s): 02/23/2025, 01/08/2024, 01/27/2023, 01/06/2023, 01/10/2022, 12/26/2021. MAMMOGRAPHY TECHNIQUE: 2D and 3D (tomosynthesis) digital mammographic views obtained, with additional images as needed for full coverage. Current study was also evaluated with a Computer Aided Detection (CAD) system. ULTRASOUND TECHNIQUE Real-time dobson scale and color doppler imaging of the area of clinical interest was performed with image documentation. TARGETED Right Breast Ultrasound: Real-time ultrasound exam was performed focused to area of clinical and/or imaging concern. DENSITY Right: C. The breast is heterogeneously dense, which may obscure small masses. MAMMOGRAPHY FINDINGS Right: Upper at 12:00, Posterior depth, measuring 0.6cm: This may have been present on prior mammograms dating back to at least 01/06/2022, but appears more prominent on the current study. Right: MLO only, Axilla: There is no suspicious mammographic finding to account for concern by the patient. No suspicious mass, asymmetry, microcalcification, or other abnormality seen. ULTRASOUND FINDINGS Right: Upper at 12:00, 1 cm from nipple, measuring 0.3 x 0.2 x 0.2 cm: There is a complicated cyst present. This is an incidental finding. Right: Upper at 12:00, 7 cm from nipple: There is no sonographic abnormality to account for imaging concern on mammography. Right: Axilla: There is no sonographic abnormality to account for concern by the patient. IMPRESSION: Right: Upper at 12:00, Posterior depth, measuring 0.6cm * Probably Benign. RECOMMENDATIONS Right: Upper at 12:00, Posterior depth * Six month followup with diagnostic mammography and diagnostic ultrasound. Ultrasound to be performed only if needed. Right * Clinical follow-up is recommended, and further management of palpable abnormalities or other focal signs or symptoms should be based on the results of clinical evaluation. If palpable abnormality or other concerning symptom persists or progresses, further clinical evaluation should be considered. COMMENTS: Findings and recommendations were conveyed to the patient during today's evaluation. OVERALL ASSESSMENT CATEGORY BI-RADS-3: Probably Benign. ELECTRONICALLY SIGNED: Claudia Rogel M.D. on 07/21/2025 at 10:24:19 PM PT Interpreting Station ID: [id number]
--- NOTE | 2025-07-21 13:19 | DI.US.S_ITS ---
PROCEDURE: US SOFT TISSUE HEAD AND NECK INDICATIONS: characterize lipoma vs other mass TECHNIQUE: Real-time scanning was performed of the neck region of interest, with image documentation. COMPARISON: None. FINDINGS: There is no abnormality seen in right neck soft tissue at the area of interest. Examination of superior right shoulder at the area of concern shows oval slightly echogenic structure within subcutaneous soft tissue measures 2.4 x 0.6 x 2.2 cm in size and show no mild internal vascularity. IMPRESSION: 1. No abnormality is seen in right neck soft tissue at the area of concern. 2. 2.4 x 0.6 x 2.2 cm possible lipoma in right shoulder soft tissue at the area of concern suggest clinical correlation and follow-up. Dictated by: Ayaan Reyes M.D. on 07/21/2025 at 16:07 Approved by: Ayaan Reyes M.D. on 07/21/2025 at 16:08
== END ==
PROVIDERS: PCP Family Medicine; Referring Provider Family Medicine; Visit Provider Family Medicine
DX: R92.8 Other abnormal and inconclusive findings on diagnostic imaging of breast (principal); N60.01 Solitary cyst of right breast; N63.31 Unspecified lump in axillary tail of the right breast; R22.31 Localized swelling, mass and lump, right upper limb; R92.331 Mammographic heterogeneous density, right breast; Z80.3 Family history of malignant neoplasm of breast
CPT/HCPCS: 76536; 76642; 77065; G0279